=== PATIENT | female | born 1955 | race Caucasian/White ===

== ENCOUNTER 2020-04-02 14:29 | Emergency (ER) | payer OTHER ==
[2020-04-02 14:38] VITALS: BP 150/83; PULSE 93; TEMP 98.4; BMI 34.0
[2020-04-02] MEDS ORDERED: DIPHTH,PERTUSS(ACELL),TET 0.5 ML DISP.SYRIN IM ONE ×2 (14:59→15:04)
--- NOTE | 2020-04-02 15:19 | PDOC ---
History of Present Illness - General Chief Complaint: Injury Stated Complaint: LT LEG LAC Time Seen by Provider: 04/02/20 14:40 History Source: Patient Exam Limitations: No Limitations Past History - Travel History Traveled outside of the country in the last 30 days: No Close contact w/someone who was outside of country & ill: No - Medical History Allergies/Adverse Reactions: Allergies Allergy/AdvReac Type Severity Reaction Status Date / Time No Known Allergies Allergy Verified 04/02/20 14:33 Home Medications: Ambulatory Orders NK [No Known Home Medication] 08/31/15 COPD: No HTN: Yes Hypercholesterolemia: Yes - Surgical History Appendectomy: Yes - Immunization History Immunization Up to Date: Yes - Psycho-Social/Smoking History Smoking History: Never smoked Have you smoked in the past 12 months: No - Substance Abuse Hx (Audit-C & DAST Scrn) How often the patient has a drink containing alcohol: Never Score: In Men: 4 or > Positive; In Women: 3 or > Positive: 0 Screen Result (Pos requires Nsg. Audit-10AR): Negative In the last yr the pt used illegal drug/Rx for NonMed reason: No Score: Yes response is considered Positive: 0 Screen Result (Positive result requires Nsg. DAST-10): Negative Review of Systems - Review of Systems Able to Perform ROS?: Yes Comments:: 04/02/20 15:14 CONSTITUTIONAL: Absent: fever, chills, diaphoresis, generalized weakness, malaise, loss of appetite HEENT: Absent: rhinorrhea, nasal congestion, throat pain, throat swelling, difficulty swallowing, mouth swelling, ear pain, eye pain, visual Changes CARDIOVASCULAR: Absent: chest pain, loss of consciousness, palpitations, irregular heart rate, peripheral edema RESPIRATORY: Absent: cough, shortness of breath, dyspnea with exertion, orthopnea, wheezing, stridor, hemoptysis GASTROINTESTINAL: Absent: abdominal pain, abdominal distension, nausea, vomiting, diarrhea, constipation, melena, hematochezia GENITOURINARY: Absent: dysuria, frequency, urgency, hesitancy, hematuria, flank pain, genital pain MUSCULOSKELETAL: Absent: myalgia, arthralgia, joint swelling SKIN: Present: Laceration Absent: rash, itching, pallor HEMATOLOGIC/IMMUNOLOGIC: Absent: easy bleeding, easy bruising, lymphadenopathy, frequent infections ENDOCRINE: Absent: unexplained weight gain, unexplained weight loss, heat intolerance, cold intolerance NEUROLOGIC: Absent: headache, focal weakness or paresthesias, dizziness, unsteady gait, seizure, mental status changes, bladder or bowel incontinence PSYCHIATRIC: Absent: anxiety, depression, suicidal or homicidal ideation, hallucinations. Is the patient limited Ghanaian proficient: No *Physical Exam - Vital Signs Last Vital Signs Temp Pulse Resp BP Pulse Ox 98.4 F 93 H 16 150/83 98 04/02/20 14:33 04/02/20 14:33 04/02/20 14:33 04/02/20 14:33 04/02/20 14:33 - Physical Exam 04/02/20 15:15 GENERAL: The patient is awake, alert, and fully oriented, in no acute distress. HEAD: Normal with no signs of trauma. EYES: Pupils equal, round and reactive to light, extraocular movements intact, sclera anicteric, conjunctiva clear. EXTREMITIES: 2cm superficial linar laceration to the R lower extremity. Abrasion present to the L lower extremity. Normal range of motion, no edema. NEUROLOGICAL: Normal speech, normal gait. PSYCH: Normal mood, normal affect. SKIN: Warm, Dry, normal turgor, no rashes or lesions noted. ED Treatment Course - Medications Given in the ED: ED Medications Discontinued Medications Generic Name Dose Route Start Last Admin Trade Name Freq PRN Reason Stop Dose Admin Diphtheria/Tetanus/Acell Pertussis 0.5 ml 04/02/20 14:59 04/02/20 15:05 Boostrix - IM 04/02/20 15:00 0.5 ml .ONCE ONE Administration Medical Decision Making - Medical Decision Making 04/02/20 15:16 Patient is a 64-year-old female who presents to the ER for a lower leg laceration sustained just prior to arrival. She states that she dropped a glass table and the glass shattered cutting her leg. She does not remember the date of her last tetanus shot. Denies numbness tingling weakness the affected extremity. A/P: Laceration On exam patient has a 2 cm superficial linear laceration to the right lower extremity no active bleeding. Left lower extremity with a abrasion to the distal knee. We will update patient's tetanus. Laceration repair by Dr. Aguilar; see procedure note Abrasion cleaned by myself, bacitracin applied with a Band-Aid. Wound care instructions given. Instructed to return in 14 days to have the stitches removed. Discharge home I discussed the physical exam findings, ancillary test results and final diagnoses with the patient. I answered all of the patient's questions. The patient was satisfied with the care received and felt comfortable with the discharge plan and treatment plan. The Patient agrees to follow up with the primary care physician/specialist within 24-72 hours. Return precautions were given. Discharge - Discharge Information Problems reviewed: Yes Clinical Impression/Diagnosis: Laceration Condition: Stable Disposition: HOME - Admission No - Follow up/Referral Referrals: [facility] [place] [Provider Group] - Patient Discharge Instructions Patient Printed Discharge Instructions: DI for Laceration Repair Additional Instructions: Discharge Instructions: You were seen in the emergency department for a laceration repair; you have 5 stitches in your R lower leg. Home Care: - You should avoid getting the wound wet for at least 24 hours. After 24hrs, you may wash your arm and shower normally. It is OK to use a plain soap and allow water to run over the wound. Do not scrub at the wound, and pat dry after washing. Do not rub with a towel. - Your tetanus shot was updated today - After 24hrs you may remove the bandage and leave the wound open to air. - Do not apply any lotions, ointments, creams or other topical medications to the wound - Some redness and swelling is expected after an injury. You may see a small amount of bleeding or pinkish drainage on the bandage when you remove it. This is normal. - You may use acetaminophen (Tylenol) or ibuprofen (Advil, Motrin) as needed for pain. Please follow the directions on the bottle for dosing information. Follow Up: - You need to have the stitches removed in 10-14 days - You can return to the emergency room/an urgent care or see your regular doctor. - Seek immediate medical care if your wound becomes significantly more painful, swollen, red, you have a large amount of thick drainage, you have fevers to 101F or higher, or you have red streaking from the wound. es in your symptoms. Instrues de lux: Voc foi visto no departamento de emergncia para um reparo de lacerao; voc tem 5 pontos em sua dong R. Assistncia Domiciliar: - Voc deve evitar molhar a ferida por pelo menos 24 horas. Aps 24 horas, voc pode kiara o brao e nikki banho normalmente. No h problema em usar alex comum e permitir que a gua escorra sobre o ferimento. No esfregue a ferida e seque depois de kiara. No esfregue com david toalha. - Sua vacina antitetnica foi atualizada hoje - Aps 24h voc pode remover o curativo e deixar a ferida aberta ao ar. - No aplique loes, pomadas, cremes ou outros medicamentos tpicos na ferida - esperada alguma vermelhido e inchao aps david leso. Voc pode tonie david pequena quantidade de sangramento ou drenagem rosada no curativo ao remov-lo. Isto normal. - Voc pode usar acetaminofeno (Tylenol) ou ibuprofeno (Advil, Motrin) conforme necessrio para a lalito. Siga as instrues no frasco para obter informaes sobre a dosagem. Acompanhamento: - Voc precisa ter os pontos removidos em 10-14 hickey - Voc pode retornar bon de emergncia / atendimento de urgncia ou consultar o seu mdico regular. - Procure atendimento mdico imediato se a sua ferida ficar significativamente mais dolorida, inchada, vermelha, se tiver david jose francisco quantidade de drenagem espessa, se tiver quang a 101F ou mais ou se tiver estrias vermelhas na ferida. est em seus sintomas. - Post Discharge Activity
--- OUTSIDE RECORDS SUMMARY | 2020-04-02 20:47 | XMS ---
:1955 [facility] Providers Name Role Phone Hardeep Scruggsy Unavailable JUSTO SAHU, MARICEL Unavailable JUSTO SAHU, MARICEL Unavailable JUSTO SAHU, MARICEL Unavailable JUSTO SAHU, MARICEL Unavailable JUSTO ASHU, MARICEL Unavailable JUSTO SAHU, MARICEL Unavailable [employer] M[employer] LO[employer] INTERVIEWER, MOBOLAJI Unavailable [employer]YE[employer] M[employer]GAGE LO[employer] INTERVIEWER, MOBOLAJI Unavailable [employer]YE[place]A MORTGAGE LOAN INTERVIEWER, MOBOLAJI Unavailable OYE[place] M[employer]GAGE LOAN INTERVIEWER, MOBOLAJI Unavailable CATRINA SAHU, LORNA Unavailable + CATRINA SAHU, LORNA Unavailable + CATRINA SAHU, LORNA Unavailable + CATRINA SAHU, LORNA Unavailable + CATRINA SAHU, LORNA Unavailable + AGYEPONG MORTGAGE LOAN INTERVIEWER, MARY Unavailable + AGYEPONG MORTGAGE LOAN INTERVIEWER, MARY Unavailable + JUSTIN CNM, KUSH Unavailable + JUSTIN CNM, KUSH Unavailable + ELIANA AVILA MD Unavailable Unavailable ELIANA AVILA MD Unavailable Unavailable ELIANA AVILA MD Unavailable Unavailable ELIANA AVILA MD Unavailable Unavailable ELIANA AVILA MD Unavailable Unavailable ELIANA AVILA MD Unavailable Unavailable ELIANA AVILA MD Unavailable Unavailable ELIANA AVILA MD Unavailable Unavailable ELIANA AVILA MD Unavailable Unavailable ELIANA AVILA MD Unavailable Unavailable ELIANA AVILA MD Unavailable Unavailable Taher, Perez D Unavailable Unavailable Taher, D Unavailable Unavailable Taher, D Unavailable Unavailable Taher, D Unavailable Unavailable Taher, D Unavailable Unavailable MD GUS Unavailable Unavailable MD GUS Unavailable Unavailable MD GUS Unavailable Unavailable MD GUS Unavailable Unavailable MD GUS Unavailable Unavailable MD GUS Unavailable Unavailable MD GUS Unavailable Unavailable Saira Unavailable [email or web address] Saira Unavailable [email or web address] Saira Unavailable [email or web address] Saira Unavailable [email or web address] BRET SAHU Unavailable + BRET SAHU Unavailable + BRET SAHU Unavailable + ALIDA SAHU Unavailable + ALIDA SAHU Unavailable + GI Unavailable + MD Jay Unavailable Unavailable MD Jay Unavailable Unavailable MD Jay Unavailable Unavailable MD Jay Unavailable Unavailable MD Jay Unavailable Unavailable MD Jay Unavailable Unavailable MD Jay Unavailable Unavailable MD Jay Unavailable Unavailable MD Jay Unavailable Unavailable MD Jay Unavailable Unavailable MD Jay Unavailable Unavailable MD Jay Unavailable Unavailable KIRA SAHU Unavailable KIRA SAHU Unavailable KIRA SAHU Unavailable KIRA SAHU Unavailable LONG CNM Unavailable LONG CNM Unavailable LONG CNM Unavailable LONG CNM Unavailable LOUANN SAHU Unavailable MAYANK SAHU Unavailable MAYANK SAHU Unavailable RANDA MORTGAGE LOAN INTERVIEWER Unavailable RANDA MORTGAGE LOAN INTERVIEWER Unavailable RANDA MORTGAGE LOAN INTERVIEWER Unavailable MD TIFFANY Unavailable Unavailable MD TIFFANY Unavailable Unavailable MD TIFFANY Unavailable Unavailable MD TIFFANY Unavailable Unavailable MD TIFFANY Unavailable Unavailable MD TIFFANY Unavailable Unavailable SRINIVAS Unavailable RENZO DDS Unavailable DRE SAHU Unavailable ZOLTAN ACEVEDO Unavailable Unavailable FABIAN SAHU Unavailable FABIAN SAHU Unavailable FABIAN SAHU Unavailable LONG ISAC M Unavailable Unavailable [place] DPM Unavailable [place] DPM Unavailable DELIA MD Unavailable Malcolm Unavailable YUE CHANEY HY Unavailable Re-disclosure Warning The records that you are about to access may contain information from federally- assisted alcohol or drug abuse programs. If such information is present, then the following federally mandated warning applies: This information has been disclosed to you from records protected by federal confidentiality rules (42 CFR part 2). The federal rules prohibit you from making any further disclosure of this information unless further disclosure is expressly permitted by the written consent of the person to whom it pertains or as otherwise permitted by 42 CFR part 2. A general authorization for the release of medical or other information is NOT sufficient for this purpose. The Federal rules restrict any use of the information to criminally investigate or prosecute any alcohol or drug abuse patient.The records that you are about to access may contain highly sensitive health information, the redisclosure of which is protected by Article 27-F of the [facility] Public Health law. If you continue you may haveaccess to information: Regarding HIV / AIDS; Provided by facilities licensed or operated by the [facility] Office of Mental Health; or Provided by the [facility] Office for People With Developmental Disabilities. If such information is present, then the following [facility] mandated warning applies: This information has been disclosed to you from confidential records which are protected by state law. State law prohibits you from making any further disclosure of this information without the specific written consent of the person to whom it pertains, or as otherwise permitted by law. Any unauthorized further disclosure in violation of state law may result in a fine or detention sentence or both. A general authorization for the release of medical or other information is NOT sufficient authorization for further disclosure. Allergies and Adverse Reactions Type Description Substance Reaction Status Data Source(s ) Allergy to No Known Allergies No known GREENW AY ([facility] substance allergies [facility] [place]note 2] ) Allergy to No Known Allergies No known GREENW AY ([facility] substance allergies [facility] [place][note 2] ) Allergy to No Known Allergies No known GREENW AY ([facility] substance allergies [facility] [place][note 2] ) Allergy to No Known Allergies No known GREENW AY ([facility] substance allergies [facility] [place][note 2] ) Allergy to No Known Allergies No known GREENW AY ([facility] substance allergies [facility] [place][note 2] ) Allergy to No Known Allergies No known GREENW AY ([facility] ) Allergy to No Known Allergies No known GREENW AY ([facility] substance allergies [facility] ([facility] ) Allergy to No Known Allergies No known GREENW AY ([facility] substance allergies [facility] ([facility] ) Allergy to No Known Allergies No known GREENW AY ([facility] substance allergies [facility] ) Allergy to No Known Allergies No known GREENW AY ([facility] substance allergies [facility] ([facility] ) Allergy to No Known Allergies No known GREENW AY ([facility] substance allergies [facility] ([facility] ) Allergy to No Known Allergies No known GREENW AY ([facility] substance allergies [facility] ([facility] ) Allergy to No Known Allergies No known GREENW AY ([facility] substance allergies [facility] ([facility] ) Allergy to No Known Allergies No known GREENW AY ([facility] substance allergies [facility] ([facility] ) Allergy to No Known Allergies No known GREENW AY ([facility] substance allergies [facility] ([facility] ) Allergy to No Known Allergies No known GREENW AY ([facility] substance allergies [facility] ) Allergy to No Known Allergies No known GREENW AY ([facility] substance allergies [facility] ([facility] ) Allergy to No Known Allergies No known GREENW AY ([facility] substance allergies [facility] ([facility] ) Allergy to No Known Allergies No known GREENW AY ([facility] substance allergies [facility] ([facility] ) Allergy to No Known Allergies No known GREENW AY ([facility] substance allergies [facility] ([facility] ) Allergy to No Known Allergies No known GREENW AY ([facility] substance allergies [facility] ) Allergy to No Known Allergies No known GREENW AY ([facility] substance allergies [facility] ([facility] ) Allergy to No Known Allergies No known GREENW AY ([facility] substance allergies [facility] ) Encounters Encounter Providers Location Date Indications Data Source(s ) Outpatient [address] 10:18:0 0 AM EDT Outpatient [address] 12:00:0 0 AM EDT Outpatient<td Attender: Cate OverweightHypertension CLEMENTINE ID="encounterTy [facility] 020 (systemic)Hyperlipid emia (Nimisha Mazariegos peDescriptionID [facility] 11:30:0 Neighbor henson 0">[place]</td> Center 0 AM Health Ce nter) <td>SYEDAELY EDT - OYEKOHEBERT MORTGAGE LOAN INTERVIEWER</td><td>Yo [facility] 12:06:4 Health 6 PM Center</td><td> EDT 10/31/2019</td> <td><content ID="encounterDi agnosisID0-0">O verweight</cont ent>, <content ID="encounterDi agnosisID0-1">H ypertension (systemic)</con tent>, <content ID="encounterDi agnosisID0-2">H yperlipidemia</ content></td> Overweight Hypertension (systemic) Hyperlipidemia Outpatient<td Attender: Cate 09/03/2019 CLEMENTINE ID="encounterTypeDescriptionID1">*Chart [facility] 05:30:0 0 PM ([place] Update*</td><td>[facility] EST - Neighborhood MD</td><td>[facility] 09/03/2019 Health Center</td><td>09/03/2019</td><td></td> 11:59:0 0 PM Center) EST Outpatient<td Attender: Cate 08/21/2019 CLEMENTINE ID="encounterTypeDescriptionID2">*[facility] 03:30:0 0 PM ([place] Update*</td><td>[facility] EST - Neighborhood MD</td><td>[facility] 08/21/2019 Health Center</td><td>08/21/2019</td><td></td> 11:59:0 0 PM Center) EST 08/13/2019 [facility] 02:03:00 PM Medical EST Center Outpatient Attender: 08/13/2019 [facility] 01:27:00 PM Medical [facility] EST Center RODGERAlexandro ACEVEDOAdmit ter: IGOR VILLELABALJEETAlexandro KRISTINARefer rer: IGOR ACEVEDO Outpatient<td Attender: [facility] 07/17/2019 [place] ID="encounterTypeDescriptionID3">*No EUGENE Mazariegos 04:33:00 P M ([place] Show*</td><td>EUGENE QUEEN (ENDO) BRET SAHU [facility] EST - Neighborhood MD</td><td>[facility] Health 07/17/2019 Health Health Center 11:59:00 PM Center) Center</td><td>07/17/2019</td><td></td> EST Outpatient<td Attender: 07/17/2019 [place] ID="encounterTypeDescriptionID4">*SYD HERNANDEZ 01:12: 00 PM ([facility]*</td><td>[facility]</td><td> [facility] EST - Neighborhood [facility] 07/17/2019 Health </td><td>07/17/2019</td><td></td> 11:59:00 PM Center) EST Outpatient<td Attender: Cate 07/11/2019 [facility] ID="encounterTypeDescriptionID5">OFFICE [facility] 10:00:0 0 AM v ([place] VISIT</td><td>MARY [facility] EST - e Neighborhood MORTGAGE LOAN INTERVIEWER</td><td>[facility] 07/[facility]/2019 Health Center</td><td>07/11/2019</td><td><maninder 11:01: 34 AM w Center) nt ID="encounterDiagnosisID5-0">Breast EST e Disorders</content>, <content i ID="encounterDiagnosisID5-1">Overweight< g /content></td> h t O v e r w e i g h t O v e r w e i g h t O v e r w e i g h t B r e a s t D i s o r d e r s B r e a s t D i s o r d e r s B r e a s t D i s o r d e r s B r e a s t D i s o r d e r s Overweight Overweight Overweight Overweight Breast Disorders Breast Disorders Breast Disorders Breast Disorders Outpatient<td Attender: Cate 07/02/2019 CLE[place] ID="encounterTypeDescriptionID6">Regular EVERARDO [facility] 02:30: 00 PM (Nimisha Mazariegos Sonogram</td><td>EVERARDO LIN MD Health EST - Neighborhood MD</td><td>[facility] Center 07/02/2019 Health Center</td><td>07/02/2019</td><td></td> 03:34:5 7 PM Center) EST Outpatient<td Attender: Cate 06/28/2019 CLE[place] ID="encounterTypeDescriptionID7">[facility] (Nimisha Mazariegos /td><td>[facility] </td><td>[facility] Center 06/28/2019 Health Center</td><td>06/28/2019</td><td></td> 10:52:1 2 AM Center) EST Outpatient<td Attender: Cate 06/13/2019 CLEMENTINE ID="encounterTypeDescriptionID8">OFFICE [facility] 10:00:0 0 AM (Nimisha Mazariegos VISIT</td><td>[facility] DPM Health EST - Neighborhood DPM</td><td>[facility] Center 06/13/2019 Health Center</td><td>06/13/2019</td><td></td> 09:52:0 3 AM Center) EST Outpatient<td Attender: Cate 06/12/2019 CLEMENT[place] ID="encounterTypeDescriptionID9">*[facility] 04:34 :00 PM (Nimisha Mazariegos *</td><td>ISAC CHAVEZ CN Health EST - Neighborhood CNM</td><td>[facility] 06/12/2019 Health Center</td><td>06/12/2019</td><td></td> 11:59:0 0 PM Center) EST Outpatient Attender: 06/07/2019 [facility] MONREALRIELLE 08:53:00 AM [facility] ISAC Floresmitter: ISAC CHAU MReferrer: ISAC [place] Outpatient<td Attender: Cate 06/05/2019 Alexandro [place] ID="[id number]">OFFICE [facility] 03:30: 00 PM s ([place] VISIT</td><td>ISAC [facility] EST - s [facility]</td><td>[facility] 06/05/2019 e Health Center</td><td>06/05/2019</td><td><conten 04:14 :02 PM s Center) t EST s ID="[id number]">Assessment m [use For S.o.a.p. Note Free e Text]</content></td> n t [ u s e F o r S . o . a . p . N o t e F r e e T e x t ] A s s e s s m e n t [ u s e F o r S . o . a . p . N o t e F r e e T e x t ] A s s e s s m e n t [ u s e F o r S . o . a . p . N o t e F r e e T e x t ] A s s e s s m e n t [ u s e F o r S . o . a . p . N o t e F r e e T e x t ] A s s e s s m e n t [ u s e F o r S . o . a . p . N o t e F r e e T e x t ] A s s e s s m e n t [ u s e F o r S . o . a . p . N o t e F r e e T e x t ] A s s e s s m e n t [ u s e F o r S . o . a . p . N o t e F r e e T e x t ] A s s e s s m e n t [ u s e F o r S . o . a . p . N o t e F r e e T e x t ] Assessment [use For S.o.a.p. Note Free T ext] Assessment [use For S.o.a.p. Note Free T ext] Assessment [use For S.o.a.p. Note Free T ext] Assessment [use For S.o.a.p. Note Free T ext] Assessment [use For S.o.a.p. Note Free T ext] Assessment [use For S.o.a.p. Note Free T ext] Assessment [use For S.o.a.p. Note Free T ext] Assessment [use For S.o.a.p. Note Free T ext] Outpatient<td Attender: [place] 05/16/2019 CLEMENTINE ID="[id number]">OFFICE [facility] 09:30: 00 AM (Nimisha Mazariegos VISIT</td><td>[facility] [place] D[place] Health EST - Neighborhood DPM</td><td>[facility] 05/16/2019 Health Center</td><td>05/16/2019</td><td></td> 11:59:0 0 PM Center) EST Outpatient<td Attender: Cate 05/16/2019 CLEMENTINE ID="encounterTypeDescriptionID0">OFFICE [facility] 09:30:0 0 AM (Nimisha Mazariegos VISIT</td><td>[facility] Health EST - Neighborhood CN</td><td>[facility] 05/16/2019 Health Center</td><td>05/16/2019</td><td></td> 11:59:0 0 PM Center) EST Outpatient<td Attender: [place] 05/16/2019 [place] ID="[id number]">OFFICE [facility] 09:00: 00 AM v (Nimisha Mazariegos VISIT</td><td>[facility] MORTGAGE LOAN INTERVIEWER</td><td>[facility] Center 05/16/2019 Health Center</td><td>05/16/2019</td><td><conten 09:51 :12 AM w Center) t ID="[id number]">Limb Pain EST e Right Foot</content>, <content i ID="[id number]">Overweight< g /content></td> h t L i m b P a i n R i g h t F o o t O v e r w e i g h t L i m b P a i n R i g h t F o o t O v e r w e i g h t L i m b P a i n R i g h t F o o t O v e r w e i g h t L i m b P a i n R i g h t F o o t O v e r w e i g h t L i m b P a i n R i g h t F o o t O v e r w e i g h t L i m b P a i n R i g h t F o o t O v e r w e i g h t L i m b P a i n R i g h t F o o t O v e r w e i g h t L i m b P a i n R i g h t F o o t O v e r w e i g h t L i m b P a i n R i g h t F o o t O v e r w e i g h t L i m b P a i n R i g h t F o o t Overweight Limb Pain Right Foot Overweight Limb Pain Right Foot Overweight Limb Pain Right Foot Overweight Limb Pain Right Foot Overweight Limb Pain Right Foot Overweight Limb Pain Right Foot Overweight Limb Pain Right Foot Overweight Limb Pain Right Foot Overweight Limb Pain Right Foot Overweight Limb Pain Right Foot Outpatient<td Attender: Nimisha Mazariegos 05/14/2019 [place] ID="[id number]">PATIENT [facility]ADY [place] 05: 16:00 PM (Nimisha Mazariegos ADVOCACY</td><td>LADY ANGELO</td><td>[facility] 05/14/2019 Health Center</td><td>05/14/2019</td><td></td> 11:59:0 0 PM Center) EST Outpatient<td Attender: Nimisha Mazariegos 05/14/2019 [place] ID="[id number]">OFFICE [facility] 02:4 5:00 PM e ([place] VISIT</td><td>CORY TALLEY MD Health Center EST - r [facility] </td><td>[facility] 05/14/2019 [facility] 02:48:41 PM a Center) Center</td><td>05/14/2019</td><td><content EST t ID="[id number]">Dermatitis</ i content></td> t i s D e r m a t i t i s D e r m a t i t i s D e r m a t i t i s D e r m a t i t i s D e r m a t i t i s D e r m a t i t i s D e r m a t i t i s D e r m a t i t i s D e r m a t i t i s D e r m a t i t i s D e r m a t i t i s Dermatitis Dermatitis Dermatitis Dermatitis Dermatitis Dermatitis Dermatitis Dermatitis Dermatitis Dermatitis Dermatitis Dermatitis Outpatient<td Attender: Cate 05/09/2019 [place] ID="[id number]">PATIENT [facility] 12:29 :00 PM (Nimisha Mazariegos ADVOCACY</td><td>[facility] EST - Ne [facility]</td><td>[facility] 2018 Health Center</td><td>05/09/2019</td><td></td> 11:59:0 0 PM Center) EST Outpatient<td Attender: Cate 04/05/2019 O CLEMENTINE ID="[id number]">COMPLETE [facility] 10:0 0:00 AM v ([place] PHYSICAL EXAM</td><td>[facility] EDT - e Neighborhood MORTGAGE LOAN INTERVIEWER</td><td>[facility] MORTGAGE LOAN INTERVIEWER Center 04/05/2019 [facility]</td><td>04/05/2019</td><td><content 11:1 6:31 AM w Center) ID="[id number]">Dermatitis</ EDT e content>, <content i ID="ondgzmlelYlwhsccteEM76-3">Routine g History and Physical Adult (18 - 64 h Yrs)</content>, <content t ID="zgsushiziBhvopmiaeOH90-9">Overweight</ R content></td> o u t i n e H i s t o r y a n d P h y s i c a l A d u l t ( 4 Y r s ) D e r m a t i t i s O v e r w e i g h t R o u t i n e H i s t o r y a n d P h y s i c a l A d u l t ( 4 Y r s ) D e r m a t i t i s O v e r w e i g h t R o u t i n e H i s t o r y a n d P h y s i c a l A d u l t ( 4 Y r s ) D e r m a t i t i s O v e r w e i g h t R o u t i n e H i s t o r y a n d P h y s i c a l A d u l t ( 4 Y r s ) D e r m a t i t i s O v e r w e i g h t R o u t i n e H i s t o r y a n d P h y s i c a l A d u l t ( 4 Y r s ) D e r m a t i t i s O v e r w e i g h t R o u t i n e H i s t o r y a n d P h y s i c a l A d u l t ( 8 4 Y r s ) D e r m a t i t i s O v e r w e i g h t R o u t i n e H i s t o r y a n d P h y s i c a l A d u l t ( 1 8 - 6 4 Y r s ) D e r m a t i t i s O v e r w e i g h t R o u t i n e H i s t o r y a n d P h y s i c a l A d u l t ( 1 8 - 6 4 Y r s ) D e r m a t i t i s O v e r w e i g h t R o u t i n e H i s t o r y a n d P h y s i c a l A d u l t ( 1 8 - 6 4 Y r s ) D e r m a t i t i s O v e r w e i g h t R o u t i n e H i s t o r y a n d P h y s i c a l A d u l t ( 1 8 - 6 4 Y r s ) D e r m a t i t i s O v e r w e i g h t R o u t i n e H i s t o r y a n d P h y s i c a l A d u l t ( 1 8 - 6 4 Y r s ) D e r m a t i t i s O v e r w e i g h t R o u t i n e H i s t o r y a n d P h y s i c a l A d u l t ( 1 8 - 6 4 Y r s ) D e r m a t i t i s O v e r w e i g h t R o u t i n e H i s t o r y a n d P h y s i c a l A d u l t ( 1 8 - 6 4 Y r s ) D e r m a t i t i s Overweight Routine History and Physical Adult (18 - 64 Yrs) Dermatitis Overweight Routine History and Physical Adult (18 - 64 Yrs) Dermatitis Overweight Routine History and Physical Adult (18 - 64 Yrs) Dermatitis Overweight Routine History and Physical Adult (18 - 64 Yrs) Dermatitis Overweight Routine History and Physical Adult (18 - 64 Yrs) Dermatitis Overweight Routine History and Physical Adult (18 - 64 Yrs) Dermatitis Overweight Routine History and Physical Adult (18 - 64 Yrs) Dermatitis Overweight Routine History and Physical Adult (18 - 64 Yrs) Dermatitis Overweight Routine History and Physical Adult (18 - 64 Yrs) Dermatitis Overweight Routine History and Physical Adult (18 - 64 Yrs) Dermatitis Overweight Routine History and Physical Adult (18 - 64 Yrs) Dermatitis Overweight Routine History and Physical Adult (18 - 64 Yrs) Dermatitis Overweight Routine History and Physical Adult (18 - 64 Yrs) Dermatitis Outpatient<td Attender: Cate 11/29/2018 OverweightOverweightOverweightOverweightOverweightOverweightOverweightOverweight OverweightOverweightOverweightOverweightOverweight CLEMENTINE ID="[id number]">WALKINS</td><td>[facility] 09:30:00 AM ([facility]</td><td>[facility] E DT - Neighborhood Center</td><td>11/29/2018</td><td><content MORTGAGE LOAN INTERVIEWER Center 11/02 Health ID="[id number]">Overweight</content></td> 09:56:36 AM Center) EDT Overweight Overweight Overweight Overweight Overweight Overweight Overweight Overweight Overweight Overweight Overweight Overweight Overweight Outpatient<td Attender: Cate 10/12/2018 Otitis Externa - Right CLEMENTINE ID="[id number]">[place]</td><td>[facility] 01:30:00 PM EarOverweightOtitis ([facility]</td><td>[facility] EDT - Externa - Right [facility] Center</td><td>10/12/2018</td><td><content MORTGAGE LOAN INTERVIEWER Center 10/12/2018 EarOverweightOtitis Health ID="[id number]">Overweight</content>, 03:00:06 PM Externa - Right Center) <content ID="[id number]">Otitis Externa - EDT EarOverweightOtitis Right Ear</content>, <content Jet Mechanic a - Right ID="[id number]">Hypertension EarOverweightOtitis (systemic)</content></td> Externa - Right EarOverweightOtitis Externa - Right EarOverweightOtitis Externa - Right EarOverweightOtitis Externa - Right EarOverweightOtitis Externa - Right EarOverweightOtitis Externa - Right EarOverweightOtitis Externa - Right EarOverweightOtitis Externa - Right EarOverweightOtitis Externa - Right EarOverweightOtitis Externa - Right EarOverweightHypertension (systemic)Hypertension (systemic)Hypertension (systemic)Hypertension (systemic)Hypertension (systemic)Hypertension (systemic)Hypertension (systemic)Hypertension (systemic)Hypertension (systemic)Hypertension (systemic)Hypertension (systemic)Hypertension (systemic)Hypertension (systemic)Hypertension (systemic) Otitis Externa - Right Ear Overweight Otitis Externa - Right Ear Overweight Otitis Externa - Right Ear Overweight Otitis Externa - Right Ear Overweight Otitis Externa - Right Ear Overweight Otitis Externa - Right Ear Overweight Otitis Externa - Right Ear Overweight Otitis Externa - Right Ear Overweight Otitis Externa - Right Ear Overweight Otitis Externa - Right Ear Overweight Otitis Externa - Right Ear Overweight Otitis Externa - Right Ear Overweight Otitis Externa - Right Ear Overweight Otitis Externa - Right Ear Overweight Hypertension (systemic) Hypertension (systemic) Hypertension (systemic) Hypertension (systemic) Hypertension (systemic) Hypertension (systemic) Hypertension (systemic) Hypertension (systemic) Hypertension (systemic) Hypertension (systemic) Hypertension (systemic) Hypertension (systemic) Hypertension (systemic) Hypertension (systemic) Outpatient<td Attender: [place] 09/26/2018 Nontoxic Solit gerson Thyroid NoduleNontoxic Solitary Thyroid NoduleNontoxic Solitary Thyroid NoduleNontoxic Solitary Thyroid NoduleNontoxic Solitary Thyroid NoduleNontoxic Solitary Thyroid NoduleNontoxic Solitary Thyroid [place] ID="[id number]">ENDOCRINOLOGY OFFICE [facility] 03:30:00 PM NoduleNontoxic Solitary Thyroid NoduleNo ntoxic Solitary Thyroid NoduleNontoxic Solitary Thyroid NoduleNontoxic Solitary Thyroid NoduleNontoxic Solitary Thyroid NoduleNontoxic Solitary Thyroid NoduleNontoxic Solitary Thyroid ([place] VISIT</td><td>EUGENE QUEEN (ENDO) </td><td>[facility] EDT - NoduleHyperlipidemiaNontoxic Solitary Thyroid Neighbor [facility] 09/26/2018 NoduleHyperlipidemiaObesityObesityObesityObesityObesityObesityObesityObesityObes ityObesityObesityObesityObesityObesityObesityHyperlipidemiaHyperlipidemiaHyperli pidemiaHyperlipidemiaHyperlipidemiaHyperlipidemiaHyperlipidemiaH Health Center</td><td>09/26/2018</td><td><content 04:56:35 PM yperlipidemiaHyperlipidemiaHyperlipidemiaHyperlipidemiaHyperlipidemiaHyperlipide Center) ID="[id number]">Hyperlipidemia</content>, EDT <content ID="[id number]">Nontoxic Solitary Thyroid Nodule</content>, <content ID="[id number]">Obesity</content></td> 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 Hyperlipidemia Nontoxic Solitary Thyroid Nodule Hyperlipidemia Obesity Obesity Obesity Obesity Obesity Obesity Obesity Obesity Obesity Obesity Obesity Obesity Obesity Obesity Obesity Hyperlipidemia Hyperlipidemia Hyperlipidemia Hyperlipidemia Hyperlipidemia Hyperlipidemia Hyperlipidemia Hyperlipidemia Hyperlipidemia Hyperlipidemia Hyperlipidemia Hyperlipidemia Hyperlipidemia Outpatient<td Attender: Cate 09/18/2018 [place] ID="[id number]">[facility] (Nimisha Mazariegos Sonogram</td><td>EVERARDO LIN MD [facility] EDT - [facility] </td><td>[facility] 09/18/2018 Health Center</td><td>09/18/2018</td><td></td> 04:23:0 8 PM Center) EDT Outpatient<td Attender: 09/10/2018 [place] ID="[id number]">*NICKOLAS HERNANDEZ 09:2 3:00 AM (Nimisha Cardoso*</td><td>MARY HEIN MORTGAGE LOAN INTERVIEWER</td><td> AGYEPONG EDT - [facility] MORTGAGE LOAN INTERVIEWER 09/10/2018 Health </td><td>09/10/2018</td><td></td> 11:59:00 PM Center) EDT Outpatient<td Attender: Cate 09/03/2018 [place] ID="[id number]">CARE [facility] 03:30:00 PM (Nimisha Mazariegos MANAGEMENT PLAN</td><td>[facility] EST - [facility]</td><td>[facility] 019 Health Center</td><td>09/03/2018</td><td></td> 11:59:0 0 PM Center) EST Outpatient<td Attender: Cate 09/03/2018 O [place] ID="[id number]">OFFICE [facility] 03:00: 00 PM b (Nimisha Mazariegos VISIT</td><td>[facility] EST - e [facility] MORTGAGE LOAN INTERVIEWER</td><td>[facility] MORTGAGE LOAN INTERVIEWER Center 09/03/2018 Health Center</td><td>09/03/2018</td><td><content 03:3 3:46 PM i Center) ID="[id number]">Obesity</con EST t tent></td> y O b e s i t y O b e s i t y O b e s i t y O b e s i t y O b e s i t y O b e s i t y O b e s i t y O b e s i t y O b e s i t y O b e s i t y O b e s i t y O b e s i t y O b e s i t y O b e s i t y O b e s i t y O b e s i t y O b e s i t y O b e s i t y Obesity Obesity Obesity Obesity Obesity Obesity Obesity Obesity Obesity Obesity Obesity Obesity Obesity Obesity Obesity Obesity Obesity Obesity Obesity Outpatient<td Attender: Cate 07/09/2018 [place] ID="[id number]">PATIENT [facility] 02:16 :00 PM (Nimisha Mazariegos ADVOCACY</td><td>[facility] EST - [facility]</td><td>[facility] 2018 Health Center</td><td>07/09/2018</td><td></td> 11:59:0 0 PM Center) EST Outpatient<td Attender: Cate 07/07/2018 H [place] ID="[id number]">[facility] 09:[facility] 0:00 AM y ([place] /td><td>MARICEL KEMP MD</td><td>Cate [facility] EST - p [facility] 07/07/2018 e Health Center</td><td>07/07/2018</td><td><content 10:0 1:49 AM r Center) ID="[id number]">Obesity</con EST t tent>, <content h ID="[id number]">Hypertension y (systemic)</content>, <content r ID="[id number]">Hyperthyroid o ism Subclinical</content></td> i d i s m S u b c l i n i c a l O b e s i t y H y p e r t h y r o i d i s m S u b c l i n i c a l O b e s i t y H y p e r t h y r o i d i s m S u b c l i n i c a l O b e s i t y H y p e r t h y r o i d i s m S u b c l i n i c a l O b e s i t y H y p e r t h y r o i d i s m S u b c l i n i c a l O b e s i t y H y p e r t h y r o i d i s m S u b c l i n i c a l O b e s i t y H y p e r t h y r o i d i s m S u b c l i n i c a l O b e s i t y H y p e r t h y r o i d i s m S u b c l i n i c a l O b e s i t y H y p e r t h y r o i d i s m S u b c l i n i c a l O b e s i t y H y p e r t h y r o i d i s m S u b c l i n i c a l O b e s i t y H y p e r t h y r o i d i s m S u b c l i n i c a l O b e s i t y H y p e r t h y r o i d i s m S u b c l i n i c a l O b e s i t y H y p e r t h y r o i d i s m S u b c l i n i c a l O b e s i t y H y p e r t h y r o i d i s m S u b c l i n i c a l O b e s i t y H y p e r t h y r o i d i s m S u b c l i n i c a l O b e s i t y H y p e r t h y r o i d i s m S u b c l i n i c a l O b e s i t y H y p e r t h y r o i d i s m S u b c l i n i c a l O b e s i t y H y p e r t h y r o i d i s m S u b c l i n i c a l O b e s i t y H y p e r t h y r o i d i s m S u b c l i n i c a l O b e s i t y H y p e r t h y r o i d i s m S u b c l i n i c a l O b e s i t y H y p e r t h y r o i d i s m S u b c l i n i c a l O b e s i t y H y p e r t e n s i o n ( s y s t e m i c ) H y p e r t e n s i o n ( s y s t e m i c ) H y p e r t e n s i o n ( s y s t e m i c ) H y p e r t e n s i o n ( s y s t e m i c ) H y p e r t e n s i o n ( s y s t e m i c ) H y p e r t e n s i o n ( s y s t e m i c ) H y p e r t e n s i o n ( s y s t e m i c ) H y p e r t e n s i o n ( s y s t e m i c ) H y p e r t e n s i o n ( s y s t e m i c ) H y p e r t e n s i o n ( s y s t e m i c ) H y p e r t e n s i o n ( s y s t e m i c ) H y p e r t e n s i o n ( s y s t e m i c ) H y p e r t e n s i o n ( s y s t e m i c ) H y p e r t e n s i o n ( s y s t e m i c ) H y p e r t e n s i o n ( s y s t e m i c ) H y p e r t e n s i o n ( s y s t e m i c ) H y p e r t e n s i o n ( s y s t e m i c ) H y p e r t e n s i o n ( s y s t e m i c ) H y p e r t e n s i o n ( s y s t e m i c ) H y p e r t e n s i o n ( s y s t e m i c ) H y p e r t e n s i o n ( s y s t e m i c ) Hyperthyroidism Subclinical Obesity Hyperthyroidism Subclinical Obesity Hyperthyroidism Subclinical Obesity Hyperthyroidism Subclinical Obesity Hyperthyroidism Subclinical Obesity Hyperthyroidism Subclinical Obesity Hyperthyroidism Subclinical Obesity Hyperthyroidism Subclinical Obesity Hyperthyroidism Subclinical Obesity Hyperthyroidism Subclinical Obesity Hyperthyroidism Subclinical Obesity Hyperthyroidism Subclinical Obesity Hyperthyroidism Subclinical Obesity Hyperthyroidism Subclinical Obesity Hyperthyroidism Subclinical Obesity Hyperthyroidism Subclinical Obesity Hyperthyroidism Subclinical Obesity Hyperthyroidism Subclinical Obesity Hyperthyroidism Subclinical Obesity Hyperthyroidism Subclinical Obesity Hyperthyroidism Subclinical Obesity Hypertension (systemic) Hypertension (systemic) Hypertension (systemic) Hypertension (systemic) Hypertension (systemic) Hypertension (systemic) Hypertension (systemic) Hypertension (systemic) Hypertension (systemic) Hypertension (systemic) Hypertension (systemic) Hypertension (systemic) Hypertension (systemic) Hypertension (systemic) Hypertension (systemic) Hypertension (systemic) Hypertension (systemic) Hypertension (systemic) Hypertension (systemic) Hypertension (systemic) Hypertension (systemic) Outpatient<td Attender: Cate 07/04/2018 [place] ID="[id number]">PATIENT [facility] 04:18 :00 PM ([place] ADVOCACY</td><td>[facility] - [facility]</td><td>[facility] 2018 Health Center</td><td>07/04/2018</td><td></td> 11:59:0 0 PM Center) EST Outpatient<td Attender: [facility] 06/27/2018 H [place] ID="[id number]">ENDOCRIN EUGENE Mazariegos 09:0 0:00 AM y ([place] OLOGY OFFICE VISIT</td><td>EUGENE QUEEN MD [facility] EST - p Neighborhood (ENDO) </td><td>[facility] 06/27/2018 [facility] 10:08:02 AM r Cent er) Center</td><td>06/27/2018</td><td><content EST t ID="[id number]">Hyperthyroid h ism Subclinical</content>, <content y ID="[id number]">Toxic r Multinodular Goiter</content></td> o i d i s m S u b c l i n i c a l H y p e r t h y r o i d i s m S u b c l i n i c a l H y p e r t h y r o i d i s m S u b c l i n i c a l H y p e r t h y r o i d i s m S u b c l i n i c a l H y p e r t h y r o i d i s m S u b c l i n i c a l H y p e r t h y r o i d i s m S u b c l i n i c a l H y p e r t h y r o i d i s m S u b c l i n i c a l H y p e r t h y r o i d i s m S u b c l i n i c a l H y p e r t h y r o i d i s m S u b c l i n i c a l H y p e r t h y r o i d i s m S u b c l i n i c a l H y p e r t h y r o i d i s m S u b c l i n i c a l H y p e r t h y r o i d i s m S u b c l i n i c a l H y p e r t h y r o i d i s m S u b c l i n i c a l H y p e r t h y r o i d i s m S u b c l i n i c a l H y p e r t h y r o i d i s m S u b c l i n i c a l H y p e r t h y r o i d i s m S u b c l i n i c a l H y p e r t h y r o i d i s m S u b c l i n i c a l H y p e r t h y r o i d i s m S u b c l i n i c a l H y p e r t h y r o i d i s m S u b c l i n i c a l H y p e r t h y r o i d i s m S u b c l i n i c a l H y p e r t h y r o i d i s m S u b c l i n i c a l T o x i c M u l t i n o d u l a r G o i t e r T o x i c M u l t i n o d u l a r G o i t e r T o x i c M u l t i n o d u l a r G o i t e r T o x i c M u l t i n o d u l a r G o i t e r T o x i c M u l t i n o d u l a r G o i t e r T o x i c M u l t i n o d u l a r G o i t e r T o x i c M u l t i n o d u l a r G o i t e r T o x i c M u l t i n o d u l a r G o i t e r T o x i c M u l t i n o d u l a r G o i t e r T o x i c M u l t i n o d u l a r G o i t e r T o x i c M u l t i n o d u l a r G o i t e r T o x i c M u l t i n o d u l a r G o i t e r T o x i c M u l t i n o d u l a r G o i t e r T o x i c M u l t i n o d u l a r G o i t e r T o x i c M u l t i n o d u l a r G o i t e r T o x i c M u l t i n o d u l a r G o i t e r T o x i c M u l t i n o d u l a r G o i t e r T o x i c M u l t i n o d u l a r G o i t e r T o x i c M u l t i n o d u l a r G o i t e r T o x i c M u l t i n o d u l a r G o i t e r T o x i c M u l t i n o d u l a r G o i t e r H y p e r t h y r o i d i s m S u b c l i n i c a l T o x i c M u l t i n o d u l a r G o i t e r H y p e r t h y r o i d i s m S u b c l i n i c a l T o x i c M u l t i n o d u l a r G o i t e r Hyperthyroidism Subclinical Hyperthyroidism Subclinical Hyperthyroidism Subclinical Hyperthyroidism Subclinical Hyperthyroidism Subclinical Hyperthyroidism Subclinical Hyperthyroidism Subclinical Hyperthyroidism Subclinical Hyperthyroidism Subclinical Hyperthyroidism Subclinical Hyperthyroidism Subclinical Hyperthyroidism Subclinical Hyperthyroidism Subclinical Hyperthyroidism Subclinical Hyperthyroidism Subclinical Hyperthyroidism Subclinical Hyperthyroidism Subclinical Hyperthyroidism Subclinical Hyperthyroidism Subclinical Hyperthyroidism Subclinical Hyperthyroidism Subclinical 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 Goiter Hyperthyroidism Subclinical Toxic Multinodular Goiter Hyperthyroidism Subclinical Toxic Multinodular Goiter Outpatient<td Attender: Cate 05/29/2018 [place] ID="[id number]">Regular [facility] 05:00 :00 PM (Nimisha Mazariegos Sonogram</td><td>EVERARDO LIN MD Health EST - [facility] </td><td>[facility] 05/29/2018 Health Center</td><td>05/29/2018</td><td></td> 05:25:5 7 PM Center) EST Outpatient<td Attender: Cate 03/26/2018 [place] ID="[id number]">OFFICE [facility] 03:30: 00 PM h (Nimisha Mazariegos VISIT</td><td>REBA MALONE MD Health EDT - y [facility] </td><td>[facility] 03/26/2018 Health Center</td><td>03/26/2018</td><td><content 03:4 4:57 PM o Center) ID="[id number]">Thyroid EDT i Disorders</content></td> d D i s o r d e r s T h y r o i d D i s o r d e r s T h y r o i d D i s o r d e r s T h y r o i d D i s o r d e r s T h y r o i d D i s o r d e r s T h y r o i d D i s o r d e r s T h y r o i d D i s o r d e r s T h y r o i d D i s o r d e r s T h y r o i d D i s o r d e r s T h y r o i d D i s o r d e r s T h y r o i d D i s o r d e r s T h y r o i d D i s o r d e r s T h y r o i d D i s o r d e r s T h y r o i d D i s o r d e r s T h y r o i d D i s o r d e r s T h y r o i d D i s o r d e r s T h y r o i d D i s o r d e r s T h y r o i d D i s o r d e r s T h y r o i d D i s o r d e r s T h y r o i d D i s o r d e r s T h y r o i d D i s o r d e r s T h y r o i d D i s o r d e r s T h y r o i d D i s o r d e r s Thyroid Disorders Thyroid Disorders Thyroid Disorders Thyroid Disorders Thyroid Disorders Thyroid Disorders Thyroid Disorders Thyroid Disorders Thyroid Disorders Thyroid Disorders Thyroid Disorders Thyroid Disorders Thyroid Disorders Thyroid Disorders Thyroid Disorders Thyroid Disorders Thyroid Disorders Thyroid Disorders Thyroid Disorders Thyroid Disorders Thyroid Disorders Thyroid Disorders Thyroid Disorders Outpatient<td Attender: [place] 03/26/2018 [place] ID="[id number]">PATIENT [facility] 09:02 :00 AM (Nimisha Mazariegos ADVOCACY</td><td>[facility] EDT - [facility]</td><td>[facility] 2017 Health Center</td><td>03/26/2018</td><td></td> 11:59:0 0 PM Center) EDT Outpatient<td Attender: 02/27/2018 [place] ID="[id number]">[Patient REBA 08:5 3:00 AM (Nimisha Mazariegos Encounter]</td><td>REBA MALONE MD</td><td> KIRA SAHU EDT [facility] 02/27/2018 Health </td><td>02/27/2018</td><td></td> 11:59:00 PM Center) EDT Outpatient<td Attender: Cate 02/24/2018 [place] ID="[id number]">[Patient [facility] 10:3 7:00 AM (Nimisha Mazariegos Encounter]</td><td>REBA MALONE MD [facility] EDT [facility] </td><td>[facility] 02/24/2018 Health Center</td><td>02/24/2018</td><td></td> 11:59:0 0 PM Center) EDT Outpatient<td Attender: Cate 02/12/2018 [place] ID="[id number]">EKG</td> [facility] 04:3 0:00 PM ([place] <td>CHANA IRWIN MD</td><td>Cate IRWIN MD [facility] EDT [facility] 02/12/2018 Health Center</td><td>02/12/2018</td><td></td> 11:59:0 0 PM Center) EDT Outpatient<td Attender: Cate 02/12/2018 [facility] ID="[id number]">OFFICE [facility] 03:30: 00 PM y ([place] VISIT</td><td>REBA MALONE MD [facility] EDT [facility] </td><td>[facility] 02/12/2018 e Health Center</td><td>02/12/2018</td><td><content 04:5 3:46 PM r Center) ID="[id number]">Hypertension EDT t (systemic)</content></td> e n s i o n ( s y s t e m i c ) H y p e r t e n s i o n ( s y s t e m i c ) H y p e r t e n s i o n ( s y s t e m i c ) H y p e r t e n s i o n ( s y s t e m i c ) H y p e r t e n s i o n ( s y s t e m i c ) H y p e r t e n s i o n ( s y s t e m i c ) H y p e r t e n s i o n ( s y s t e m i c ) H y p e r t e n s i o n ( s y s t e m i c ) H y p e r t e n s i o n ( s y s t e m i c ) H y p e r t e n s i o n ( s y s t e m i c ) H y p e r t e n s i o n ( s y s t e m i c ) H y p e r t e n s i o n ( s y s t e m i c ) H y p e r t e n s i o n ( s y s t e m i c ) H y p e r t e n s i o n ( s y s t e m i c ) H y p e r t e n s i o n ( s y s t e m i c ) H y p e r t e n s i o n ( s y s t e m i c ) H y p e r t e n s i o n ( s y s t e m i c ) H y p e r t e n s i o n ( s y s t e m i c ) H y p e r t e n s i o n ( s y s t e m i c ) H y p e r t e n s i o n ( s y s t e m i c ) H y p e r t e n s i o n ( s y s t e m i c ) H y p e r t e n s i o n ( s y s t e m i c ) H y p e r t e n s i o n ( s y s t e m i c ) Hypertension (systemic) Hypertension (systemic) Hypertension (systemic) Hypertension (systemic) Hypertension (systemic) Hypertension (systemic) Hypertension (systemic) Hypertension (systemic) Hypertension (systemic) Hypertension (systemic) Hypertension (systemic) Hypertension (systemic) Hypertension (systemic) Hypertension (systemic) Hypertension (systemic) Hypertension (systemic) Hypertension (systemic) Hypertension (systemic) Hypertension (systemic) Hypertension (systemic) Hypertension (systemic) Hypertension (systemic) Hypertension (systemic) Outpatient<td Attender: Nimisha Mazariegos 12/29/2017 [place] ID="[id number]">PATIENT [facility] 01: 57:00 PM ([place] ADVOCACY</td><td>[facility] EDT - [facility]</td><td>[facility] 12/29 Health Health 11:59:00 PM Center) Center</td><td>12/29/2017</td><td></td> EDT Outpatient<td Attender: [place] 12/13/2017 H CLE[place] ID="[id number]">ENDOCRIN EUGENE [facility] 03 :30:00 PM y ([place] OLOG OFFICE VISIT</td><td>[facility] EDT - p Neighborhood (ENDO) </td><td>[place] 12/13/2017 [facility] 04:13:41 PM r Cent er) Center</td><td>12/13/2017</td><td><content EDT t ID="[id number]">Obesity</con h tent>, <content y ID="[id number]">Hyperthyroid r ism Subclinical</content></td> o i d i s m S u b c l i n i c a l O b e s i t y H y p e r t h y r o i d i s m S u b c l i n i c a l O b e s i t y H y p e r t h y r o i d i s m S u b c l i n i c a l O b e s i t y H y p e r t h y r o i d i s m S u b c l i n i c a l O b e s i t y H y p e r t h y r o i d i s m S u b c l i n i c a l O b e s i t y H y p e r t h y r o i d i s m S u b c l i n i c a l O b e s i t y H y p e r t h y r o i d i s m S u b c l i n i c a l O b e s i t y H y p e r t h y r o i d i s m S u b c l i n i c a l O b e s i t y H y p e r t h y r o i d i s m S u b c l i n i c a l O b e s i t y H y p e r t h y r o i d i s m S u b c l i n i c a l O b e s i t y H y p e r t h y r o i d i s m S u b c l i n i c a l O b e s i t y H y p e r t h y r o i d i s m S u b c l i n i c a l O b e s i t y H y p e r t h y r o i d i s m S u b c l i n i c a l O b e s i t y H y p e r t h y r o i d i s m S u b c l i n i c a l O b e s i t y H y p e r t h y r o i d i s m S u b c l i n i c a l O b e s i t y H y p e r t h y r o i d i s m S u b c l i n i c a l O b e s i t y H y p e r t h y r o i d i s m S u b c l i n i c a l O b e s i t y H y p e r t h y r o i d i s m S u b c l i n i c a l O b e s i t y H y p e r t h y r o i d i s m S u b c l i n i c a l O b e s i t y H y p e r t h y r o i d i s m S u b c l i n i c a l O b e s i t y H y p e r t h y r o i d i s m S u b c l i n i c a l O b e s i t y H y p e r t h y r o i d i s m S u b c l i n i c a l O b e s i t y H y p e r t h y r o i d i s m S u b c l i n i c a l O b e s i t y Hyperthyroidism Subclinical Obesity Hyperthyroidism Subclinical Obesity Hyperthyroidism Subclinical Obesity Hyperthyroidism Subclinical Obesity Hyperthyroidism Subclinical Obesity Hyperthyroidism Subclinical Obesity Hyperthyroidism Subclinical Obesity Hyperthyroidism Subclinical Obesity Hyperthyroidism Subclinical Obesity Hyperthyroidism Subclinical Obesity Hyperthyroidism Subclinical Obesity Hyperthyroidism Subclinical Obesity Hyperthyroidism Subclinical Obesity Hyperthyroidism Subclinical Obesity Hyperthyroidism Subclinical Obesity Hyperthyroidism Subclinical Obesity Hyperthyroidism Subclinical Obesity Hyperthyroidism Subclinical Obesity Hyperthyroidism Subclinical Obesity Hyperthyroidism Subclinical Obesity Hyperthyroidism Subclinical Obesity Hyperthyroidism Subclinical Obesity Hyperthyroidism Subclinical Obesity Outpatient<td Attender: Cate 12/01/2017 CLEMENTINE ID="[id number]">PATIENT [facility] 02:47 :00 PM (Nimisha Mazariegos ADVOCACY</td><td>[facility] EDT [facility]</td><td>[facility] 2017 Health Center</td><td>12/01/2017</td><td></td> 11:59:0 0 PM [place]) EDT Outpatient<td Attender: Cate 11/29/2017 CLEMENTINE ID="[id number]">OFFICE [facility] 03:30: 00 PM (Nimisha Mazariegos VISIT</td><[facility]</td><td>[facility] 11/29/2017 Health Center</td><td>11/29/2017</td><td></td> 04:12:5 5 PM Center) EDT Outpatient<td Attender: Cate 10/30/2017 H CLEMENTINE ID="[id number]">[facility] y (Nimisha Mazarieogs /td><td>[facility]</td><td>[facility] EDT - [facility] 10/30/2017 e Health Center</td><td>10/30/2017</td><td><content 03:5 9:40 PM r Center) ID="[id number]">Hyperthyroid EDT t ism</content>, <content h ID="[id number]">Hypertension y (systemic)</content></td> r o i d i s m H y p e r t h y r o i d i s m H y p e r t h y r o i d i s m H y p e r t h y r o i d i s m H y p e r t h y r o i d i s m H y p e r t h y r o i d i s m H y p e r t h y r o i d i s m H y p e r t h y r o i d i s m H y p e r t h y r o i d i s m H y p e r t h y r o i d i s m H y p e r t h y r o i d i s m H y p e r t h y r o i d i s m H y p e r t h y r o i d i s m H y p e r t h y r o i d i s m H y p e r t h y r o i d i s m H y p e r t h y r o i d i s m H y p e r t h y r o i d i s m H y p e r t h y r o i d i s m H y p e r t h y r o i d i s m H y p e r t h y r o i d i s m H y p e r t h y r o i d i s m H y p e r t h y r o i d i s m H y p e r t h y r o i d i s m H y p e r t e n s i o n ( s y s t e m i c ) H y p e r t e n s i o n ( s y s t e m i c ) H y p e r t e n s i o n ( s y s t e m i c ) H y p e r t e n s i o n ( s y s t e m i c ) H y p e r t e n s i o n ( s y s t e m i c ) H y p e r t e n s i o n ( s y s t e m i c ) H y p e r t e n s i o n ( s y s t e m i c ) H y p e r t e n s i o n ( s y s t e m i c ) H y p e r t e n s i o n ( s y s t e m i c ) H y p e r t e n s i o n ( s y s t e m i c ) H y p e r t e n s i o n ( s y s t e m i c ) H y p e r t e n s i o n ( s y s t e m i c ) H y p e r t e n s i o n ( s y s t e m i c ) H y p e r t e n s i o n ( s y s t e m i c ) H y p e r t e n s i o n ( s y s t e m i c ) H y p e r t e n s i o n ( s y s t e m i c ) H y p e r t e n s i o n ( s y s t e m i c ) H y p e r t e n s i o n ( s y s t e m i c ) H y p e r t e n s i o n ( s y s t e m i c ) H y p e r t e n s i o n ( s y s t e m i c ) H y p e r t e n s i o n ( s y s t e m i c ) H y p e r t e n s i o n ( s y s t e m i c ) H y p e r t e n s i o n ( s y s t e m i c ) Hyperthyroidism Hyperthyroidism Hyperthyroidism Hyperthyroidism Hyperthyroidism Hyperthyroidism Hyperthyroidism Hyperthyroidism Hyperthyroidism Hyperthyroidism Hyperthyroidism Hyperthyroidism Hyperthyroidism Hyperthyroidism Hyperthyroidism Hyperthyroidism Hyperthyroidism Hyperthyroidism Hyperthyroidism Hyperthyroidism Hyperthyroidism Hyperthyroidism Hyperthyroidism Hypertension (systemic) Hypertension (systemic) Hypertension (systemic) Hypertension (systemic) Hypertension (systemic) Hypertension (systemic) Hypertension (systemic) Hypertension (systemic) Hypertension (systemic) Hypertension (systemic) Hypertension (systemic) Hypertension (systemic) Hypertension (systemic) Hypertension (systemic) Hypertension (systemic) Hypertension (systemic) Hypertension (systemic) Hypertension (systemic) Hypertension (systemic) Hypertension (systemic) Hypertension (systemic) Hypertension (systemic) Hypertension (systemic) Outpatient<td Attender: Cate 10/02/2017 [place] ID="[id number]">*OUTREACH*</td><td>[facility] 11:35:00 AM ([facility]</td><td>[facility] DT - Neighborhood Center</td><td>10/02/2017</td><td></td> MORTGAGE LOAN INTERVIEWER Center [address] [place] [address] 11:59:00 PM Center) EDT Outpatient<td ID="[id number]">[Patient Attende r: Cate 09/28/2017 [place] Encounter]</td><td>[facility]</td><td>[facility] 11:43:00 AM ([facility]</td><td>09/28/2017</td><td></td> [facility] EDT - Neighborhood MORTGAGE LOAN INTERVIEWER Center 09/28/2017 Health 11:59:00 PM Center) EDT Outpatient<td Attender: Cate 09/25/2017 [facility] ID="[id number]">WALKINS</td><td>[facility] 03:15:00 PM y ([facility]</td><td>[facility] E DT - p Neighborhood Center</td><td>09/25/2017</td><td><content MORTGAGE LOAN INTERVIEWER Center 09/01 e Health ID="[id number]">Hypertension 04: 3:55 PM r Center) (systemic)</content></td> EDT t e n s i o n ( s y s t e m i c ) H y p e r t e n s i o n ( s y s t e m i c ) H y p e r t e n s i o n ( s y s t e m i c ) H y p e r t e n s i o n ( s y s t e m i c ) H y p e r t e n s i o n ( s y s t e m i c ) H y p e r t e n s i o n ( s y s t e m i c ) H y p e r t e n s i o n ( s y s t e m i c ) H y p e r t e n s i o n ( s y s t e m i c ) H y p e r t e n s i o n ( s y s t e m i c ) H y p e r t e n s i o n ( s y s t e m i c ) H y p e r t e n s i o n ( s y s t e m i c ) H y p e r t e n s i o n ( s y s t e m i c ) H y p e r t e n s i o n ( s y s t e m i c ) H y p e r t e n s i o n ( s y s t e m i c ) H y p e r t e n s i o n ( s y s t e m i c ) H y p e r t e n s i o n ( s y s t e m i c ) H y p e r t e n s i o n ( s y s t e m i c ) H y p e r t e n s i o n ( s y s t e m i c ) H y p e r t e n s i o n ( s y s t e m i c ) H y p e r t e n s i o n ( s y s t e m i c ) H y p e r t e n s i o n ( s y s t e m i c ) H y p e r t e n s i o n ( s y s t e m i c ) H y p e r t e n s i o n ( s y s t e m i c ) Hypertension (systemic) Hypertension (systemic) Hypertension (systemic) Hypertension (systemic) Hypertension (systemic) Hypertension (systemic) Hypertension (systemic) Hypertension (systemic) Hypertension (systemic) Hypertension (systemic) Hypertension (systemic) Hypertension (systemic) Hypertension (systemic) Hypertension (systemic) Hypertension (systemic) Hypertension (systemic) Hypertension (systemic) Hypertension (systemic) Hypertension (systemic) Hypertension (systemic) Hypertension (systemic) Hypertension (systemic) Hypertension (systemic) Outpatient<td Attender: Cate 09/21/2017 [place] ID="[id number]">*OUTREACH*</td><td>[facility] 01:03:00 PM ([facility]</td><td>[facility] E DT - [facility] Center</td><td>09/21/2017</td><td></td> MORTGAGE LOAN INTERVIEWER Center [address] [place] [address] 11:59:00 PM Center) EDT Outpatient<td ID="[id number]">PATIENT Attender : Cate 09/19/2017 [place] ADVOCACY</td><td>[facility]</td><td>[facility] 01:01:00 PM ([facility]</td><td>09/19/2017</td><td></td> [facility] EDT - Neighborhood Center 09/19/2017 Health 11:59:00 PM Center) EDT Outpatient<td ID="[id number]">OFFICE Attender: Cate 09/18/2017 [place] VISIT</td><td>[facility]</td><td>[facility] 03:30:00 PM b ([facility]</td><td>09/18/2017</td><td><content [facility] EDT - e Neighborhood ID="[id number]">Obesity</content>, <content MORTGAGE LOAN INTERVIEWER Center 09/18/2017 s Health ID="[id number]">Routine History and 04:05:34 PM i [place]) Physical</content></td> EDT t y O b e s i t y O b e s i t y O b e s i t y O b e s i t y O b e s i t y O b e s i t y O b e s i t y O b e s i t y O b e s i t y O b e s i t y O b e s i t y O b e s i t y O b e s i t y O b e s i t y O b e s i t y O b e s i t y O b e s i t y O b e s i t y O b e s i t y O b e s i t y R o u t i n e H i s t o r y a n d P h y s i c a l R o u t i n e H i s t o r y a n d P h y s i c a l R o u t i n e H i s t o r y a n d P h y s i c a l R o u t i n e H i s t o r y a n d P h y s i c a l R o u t i n e H i s t o r y a n d P h y s i c a l R o u t i n e H i s t o r y a n d P h y s i c a l R o u t i n e H i s t o r y a n d P h y s i c a l R o u t i n e H i s t o r y a n d P h y s i c a l R o u t i n e H i s t o r y a n d P h y s i c a l R o u t i n e H i s t o r y a n d P h y s i c a l R o u t i n e H i s t o r y a n d P h y s i c a l R o u t i n e H i s t o r y a n d P h y s i c a l R o u t i n e H i s t o r y a n d P h y s i c a l R o u t i n e H i s t o r y a n d P h y s i c a l R o u t i n e H i s t o r y a n d P h y s i c a l R o u t i n e H i s t o r y a n d P h y s i c a l R o u t i n e H i s t o r y a n d P h y s i c a l R o u t i n e H i s t o r y a n d P h y s i c a l R o u t i n e H i s t o r y a n d P h y s i c a l R o u t i n e H i s t o r y a n d P h y s i c a l R o u t i n e H i s t o r y a n d P h y s i c a l O b e s i t y R o u t i n e H i s t o r y a n d P h y s i c a l O b e s i t y R o u t i n e H i s t o r y a n d P h y s i c a l Obesity Obesity Obesity Obesity Obesity Obesity Obesity Obesity Obesity Obesity Obesity Obesity Obesity Obesity Obesity Obesity Obesity Obesity Obesity Obesity Obesity Routine History and Physical Routine History and Physical Routine History and Physical Routine History and Physical Routine History and Physical Routine History and Physical Routine History and Physical Routine History and Physical Routine History and Physical Routine History and Physical Routine History and Physical Routine History and Physical Routine History and Physical Routine History and Physical Routine History and Physical Routine History and Physical Routine History and Physical Routine History and Physical Routine History and Physical Routine History and Physical Routine History and Physical Obesity Routine History and Physical Obesity Routine History and Physical Outpatient<td Attender: [place] 10/07/2016 [place] ID="[id number]">PATIENT CLES[place] Neighborhood 06: 37:00 PM ([place] ADVOCACY</td><td>[facility]td><td>[facility] 10/07 Health Health 11:59:00 PM Center) Center</td><td>10/07/2016</td><td></td> EDT Outpatient<td Attender: [place] 10/07/2016 [place] ID="[id number]">RADIOLOGY ASST [place] Neighborhood 11:30:0 0 AM ([place] ANNUAL</td><td>[facility] EDT [facility] </td><td>[facility] 10/07/2016 Health Health 12:48:40 PM Center) Center</td><td>10/07/2016</td><td></td> EDT Outpatient<td Attender: Cate 09/23/2016 [place] ID="[id number]">[facility] ([place] /td><td>[facility]</td><td>[facility] E DT - [facility] MORTGAGE LOAN INTERVIEWER 09/23/2016 Health [place]</td><td>09/23/2016</td><td></td> 01:10:0 8 PM Center) EDT Outpatient<td Attender: Cate 09/16/2016 [place] ID="[id number]">[facility] 11:30: 00 AM r ([place] VISIT</td><td>[facility] EDT - e [facility] </td><td>[facility] 09/16/2016 [facility]</td><td>09/16/2016</td><td><content 01:5 0:26 PM b [place]) ID="[id number]">Presbyopia</ EDT y content></td> o p i a P r e s b y o p i a P r e s b y o p i a P r e s b y o p i a P r e s b y o p i a P r e s b y o p i a P r e s b y o p i a P r e s b y o p i a P r e s b y o p i a P r e s b y o p i a P r e s b y o p i a P r e s b y o p i a P r e s b y o p i a P r e s b y o p i a P r e s b y o p i a P r e s b y o p i a P r e s b y o p i a P r e s b y o p i a P r e s b y o p i a P r e s b y o p i a P r e s b y o p i a P r e s b y o p i a P r e s b y o p i a Presbyopia Presbyopia Presbyopia Presbyopia Presbyopia Presbyopia Presbyopia Presbyopia Presbyopia Presbyopia Presbyopia Presbyopia Presbyopia Presbyopia Presbyopia Presbyopia Presbyopia Presbyopia Presbyopia Presbyopia Presbyopia Presbyopia Presbyopia Outpatient<td Attender: Cate 09/14/2016 [place] ID="[id number]">PATIENT [facility] 03:57 :00 PM ([place] ADVOCACY</td><td>[facility] EDT - [facility]</td><td>[facility] Center 2016 Health Center</td><td>09/14/2016</td><td></td> 11:59:0 0 PM Center) EDT Outpatient<td Attender: Cate 09/09/2016 [place] ID="[id number]">OFFICE [facility] 11:00: 00 AM ([place] VISIT</td><td>[facility] EST - Neighborhood MORTGAGE LOAN INTERVIEWER</td><td>[facility] MORTGAGE LOAN INTERVIEWER Center 09/09/2016 Health Center</td><td>09/09/2016</td><td></td> 11:01:0 7 AM Center) EST Outpatient<td Attender: Cate 01/19/2016 [place] ID="[id number]">[facility] 03:0 0:00 PM ([place] SIT</td><td>[facility] EDT - Neighborhood DDS</td><td>[facility] Center 01/19/2016 Health Center</td><td>01/19/2016</td><td></td> 11:59:0 0 PM Center) EDT Outpatient<td Attender: Cate 01/05/2016 [place] ID="[id number]">[facility] 05:0 0:00 PM ([place] SIT</td><td>[facility] HY</td><td>[facility] DENT Center 01/05/2016 Health Center</td><td>01/05/2016</td><td></td> 11:59:0 0 PM Center) EDT Outpatient<td Attender: [place] 12/22/2015 [place] ID="[id number]">DENTAL [facility] 03:00: 00 PM ([place] INITIAL VISIT</td><td>[facility] Health EDT - [facility] DD</td><td>[facility] 12/22/2015 Health Center</td><td>12/22/2015</td><td></td> 11:59:0 0 PM Center) EDT Outpatient<td Attender: [facility] 11/10/2015 R [place] ID="[id number]">RADIOLOGY ASST [facility] 03:30:00 PM o ([place] ANNUAL</td><td>ANDEVENDRA Thompson MD [facility] EDT - u [facility]</td><td>[facility] Health 11/10/2015 [facility] Center 05:48:18 PM i Center) Center</td><td>11/10/2015</td><td><content EDT n ID="[id number]">Routine e Gynecological Exam with Cervical Pap G Smear</content></td> y n e c o l o g i c a l E x a m w i t h C e r v i c a l P a p S m e a r R o u t i n e G y n e c o l o g i c a l E x a m w i t h C e r v i c a l P a p S m e a r R o u t i n e G y n e c o l o g i c a l E x a m w i t h C e r v i c a l P a p S m e a r R o u t i n e G y n e c o l o g i c a l E x a m w i t h C e r v i c a l P a p S m e a r R o u t i n e G y n e c o l o g i c a l E x a m w i t h C e r v i c a l P a p S m e a r R o u t i n e G y n e c o l o g i c a l E x a m w i t h C e r v i c a l P a p S m e a r R o u t i n e G y n e c o l o g i c a l E x a m w i t h C e r v i c a l P a p S m e a r R o u t i n e G y n e c o l o g i c a l E x a m w i t h C e r v i c a l P a p S m e a r R o u t i n e G y n e c o l o g i c a l E x a m w i t h C e r v i c a l P a p S m e a r R o u t i n e G y n e c o l o g i c a l E x a m w i t h C e r v i c a l P a p S m e a r R o u t i n e G y n e c o l o g i c a l E x a m w i t h C e r v i c a l P a p S m e a r R o u t i n e G y n e c o l o g i c a l E x a m w i t h C e r v i c a l P a p S m e a r R o u t i n e G y n e c o l o g i c a l E x a m w i t h C e r v i c a l P a p S m e a r R o u t i n e G y n e c o l o g i c a l E x a m w i t h C e r v i c a l P a p S m e a r R o u t i n e G y n e c o l o g i c a l E x a m w i t h C e r v i c a l P a p S m e a r R o u t i n e G y n e c o l o g i c a l E x a m w i t h C e r v i c a l P a p S m e a r R o u t i n e G y n e c o l o g i c a l E x a m w i t h C e r v i c a l P a p S m e a r R o u t i n e G y n e c o l o g i c a l E x a m w i t h C e r v i c a l P a p S m e a r R o u t i n e G y n e c o l o g i c a l E x a m w i t h C e r v i c a l P a p S m e a r R o u t i n e G y n e c o l o g i c a l E x a m w i t h C e r v i c a l P a p S m e a r R o u t i n e G y n e c o l o g i c a l E x a w i t h C e r v i c a l P a p S m e a r R o u t i n e G y n e c o l o g i c a l E x a m w i t h C e r v i c a l P a p S m e a r R o u t i n e G y n e c o l o g i c a l E x a m w i t h C e r v i c a l P a p S m e a r Routine Gynecological Exam with Cervical Pap Smear Routine Gynecological Exam with Cervical Pap Smear Routine Gynecological Exam with Cervical Pap Smear Routine Gynecological Exam with Cervical Pap Smear Routine Gynecological Exam with Cervical Pap Smear Routine Gynecological Exam with Cervical Pap Smear Routine Gynecological Exam with Cervical Pap Smear Routine Gynecological Exam with Cervical Pap Smear Routine Gynecological Exam with Cervical Pap Smear Routine Gynecological Exam with Cervical Pap Smear Routine Gynecological Exam with Cervical Pap Smear Routine Gynecological Exam with Cervical Pap Smear Routine Gynecological Exam with Cervical Pap Smear Routine Gynecological Exam with Cervical Pap Smear Routine Gynecological Exam with Cervical Pap Smear Routine Gynecological Exam with Cervical Pap Smear Routine Gynecological Exam with Cervical Pap Smear Routine Gynecological Exam with Cervical Pap Smear Routine Gynecological Exam with Cervical Pap Smear Routine Gynecological Exam with Cervical Pap Smear Routine Gynecological Exam with Cervical Pap Smear Routine Gynecological Exam with Cervical Pap Smear Routine Gynecological Exam with Cervical Pap Smear Outpatient<td Attender: Cate 11/03/2015 [place] ID="[id number]">RADIOLOGY ASST [facility] 04:00:00 PM ([place] ANNUAL</td><td>[facility] FABIAN PERALTA MD Health EDT - Neighborhood MD</td><td>[facility] 11/03/2015 Health Center</td><td>11/03/2015</td><td></td> 03:37:2 1 PM Center) EDT Outpatient<td Attender: Cate 10/26/2015 [place] ID="[id number]">*OUTRE [facility] 09:25: 00 AM ([place] ACH*</td><td>[facility] EDT - Neighborhood MORTGAGE LOAN INTERVIEWER</td><td[facility] Center</td><td>10/26/2015</td><td></td> 11:59:0 0 PM Center) EDT Outpatient<td Attender: Cate 10/14/2015 [place] ID="[id number]">COMPLE [facility] 03:00: 00 PM y ([place] TE PHYSICAL EXAM</td><td>[facility] EDT - p [facility] MORTGAGE LOAN INTERVIEWER</td><td>[facility] MORTGAGE LOAN INTERVIEWER Center 10/14/2015 e Health Center</td><td>10/14/2015</td><td><maninder 04:32: 00 PM r Center) nt EDT t ID="[id number]">Headache e Syndromes</content>, <content n ID="[id number]">Routine s History and Physical</content>, <content i ID="[id number]">Hypertensi o on (systemic)</content>, <content n ID="[id number]">Preventive ( Medicine Screening For s Depression</content>, <content y ID="[id number]">Preventive s Med Standardized Depression Screening: t Positive For Symptoms</content>, e <content m ID="[id number]">Varicose i Veins</content></td> c ) H y p e r t e n s i o n ( s y s t e m i c ) H y p e r t e n s i o n ( s y s t e m i c ) H y p e r t e n s i o n ( s y s t e m i c ) H y p e r t e n s i o n ( s y s t e m i c ) H y p e r t e n s i o n ( s y s t e m i c ) H y p e r t e n s i o n ( s y s t e m i c ) H y p e r t e n s i o n ( s y s t e m i c ) H y p e r t e n s i o n ( s y s t e m i c ) H y p e r t e n s i o n ( s y s t e m i c ) H y p e r t e n s i o n ( s y s t e m i c ) H y p e r t e n s i o n ( s y s t e m i c ) H y p e r t e n s i o n ( s y s t e m i c ) H y p e r t e n s i o n ( s y s t e m i c ) H y p e r t e n s i o n ( s y s t e m i c ) H y p e r t e n s i o n ( s y s t e m i c ) H y p e r t e n s i o n ( s y s t e m i c ) H y p e r t e n s i o n ( s y s t e m i c ) H y p e r t e n s i o n ( s y s t e m i c ) H y p e r t e n s i o n ( s y s t e m i c ) H y p e r t e n s i o n ( s y s t e m i c ) H y p e r t e n s i o n ( s y s t e m i c ) H y p e r t e n s i o n ( s y s t e m i c ) P r e v e n t i v e M e d S t a n d a r d i z e d D e p r e s s i o n S c r e e n i n g : P o s i t i v e F o r S y m p t o m s P r e v e n t i v e M e d i c i n e S c r e e n i n g F o r D e p r e s s i o n P r e v e n t i v e M e d S t a n d a r d i z e d D e p r e s s i o n S c r e e n i n g : P o s i t i v e F o r S y m p t o m s P r e v e n t i v e M e d i c i n e S c r e e n i n g F o r D e p r e s s i o n P r e v e n t i v e M e d S t a n d a r d i z e d D e p r e s s i o n S c r e e n i n g : P o s i t i v e F o r S y m p t o m s P r e v e n t i v e M e d i c i n e S c r e e n i n g F o r D e p r e s s i o n P r e v e n t i v e M e d S t a n d a r d i z e d D e p r e s s i o n S c r e e n i n g : P o s i t i v e F o r S y m p t o m s P r e v e n t i v e M e d i c i n e S c r e e n i n g F o r D e p r e s s i o n P r e v e n t i v e M e d S t a n d a r d i z e d D e p r e s s i o n S c r e e n i n g : P o s i t i v e F o r S y m p t o m s P r e v e n t i v e M e d i c i n e S c r e e n i n g F o r D e p r e s s i o n P r e v e n t i v e M e d S t a n d a r d i z e d D e p r e s s i o n S c r e e n i n g : P o s i t i v e F o r S y m p t o m s P r e v e n t i v e M e d i c i n e S c r e e n i n g F o r D e p r e s s i o n P r e v e n t i v e M e d S t a n d a r d i z e d D e p r e s s i o n S c r e e n i n g : P o s i t i v e F o r S y m p t o m s P r e v e n t i v e M e d i c i n e S c r e e n i n g F o r D e p r e s s i o n P r e v e n t i v e M e d S t a n d a r d i z e d D e p r e s s i o n S c r e e n i n g : P o s i t i v e F o r S y m p t o m s P r e v e n t i v e M e d i c i n e S c r e e n i n g F o r D e p r e s s i o n P r e v e n t i v e M e d S t a n d a r d i z e d D e p r e s s i o n S c r e e n i n g : P o s i t i v e F o r S y m p t o m s P r e v e n t i v e M e d i c i n e S c r e e n i n g F o r D e p r e s s i o n P r e v e n t i v e M e d S t a n d a r d i z e d D e p r e s s i o n S c r e e n i n g : P o s i t i v e F o r S y m p t o m s P r e v e n t i v e M e d i c i n e S c r e e n i n g F o r D e p r e s s i o n P r e v e n t i v e M e d S t a n d a r d i z e d D e p r e s s i o n S c r e e n i n g : P o s i t i v e F o r S y m p t o m s P r e v e n t i v e M e d i c i n e S c r e e n i n g F o r D e p r e s s i o n P r e v e n t i v e M e d S t a n d a r d i z e d D e p r e s s i o n S c r e e n i n g : P o s i t i v e F o r S y m p t o m s P r e v e n t i v e M e d i c i n e S c r e e n i n g F o r D e p r e s s i o n P r e v e n t i v e M e d S t a n d a r d i z e d D e p r e s s i o n S c r e e n i n g : P o s i t i v e F o r S y m p t o m s P r e v e n t i v e M e d i c i n e S c r e e n i n g F o r D e p r e s s i o n V a r i c o s e V e i n s R o u t i n e H i s t o r y a n d P h y s i c a l H e a d a c h e S y n d r o m e s V a r i c o s e V e i n s R o u t i n e H i s t o r y a n d P h y s i c a l H e a d a c h e S y n d r o m e s V a r i c o s e V e i n s R o u t i n e H i s t o r y a n d P h y s i c a l H e a d a c h e S y n d r o m e s V a r i c o s e V e i n s R o u t i n e H i s t o r y a n d P h y s i c a l H e a d a c h e S y n d r o m e s V a r i c o s e V e i n s R o u t i n e H i s t o r y a n d P h y s i c a l H e a d a c h e S y n d r o m e s V a r i c o s e V e i n s R o u t i n e H i s t o r y a n d P h y s i c a l H e a d a c h e S y n d r o m e s V a r i c o s e V e i n s R o u t i n e H i s t o r y a n d P h y s i c a l H e a d a c h e S y n d r o m e s V a r i c o s e V e i n s R o u t i n e H i s t o r y a n d P h y s i c a l H e a d a c h e S y n d r o m e s V a r i c o s e V e i n s R o u t i n e H i s t o r y a n d P h y s i c a l H e a d a c h e S y n d r o m e s V a r i c o s e V e i n s R o u t i n e H i s t o r y a n d P h y s i c a l H e a d a c h e S y n d r o m e s V a r i c o s e V e i n s R o u t i n e H i s t o r y a n d P h y s i c a l H e a d a c h e S y n d r o m e s V a r i c o s e V e i n s R o u t i n e H i s t o r y a n d P h y s i c a l H e a d a c h e S y n d r o m e s V a r i c o s e V e i n s R o u t i n e H i s t o r y a n d P h y s i c a l H e a d a c h e S y n d r o m e s V a r i c o s e V e i n s P r e v e n t i v e M e d S t a n d a r d i z e d D e p r e s s i o n S c r e e n i n g : P o s i t i v e F o r S y m p t o m s P r e v e n t i v e M e d i c i n e S c r e e n i n g F o r D e p r e s s i o n R o u t i n e H i s t o r y a n d P h y s i c a l H e a d a c h e S y n d r o m e s V a r i c o s e V e i n s P r e v e n t i v e M e d S t a n d a r d i z e d D e p r e s s i o n S c r e e n i n g : P o s i t i v e F o r S y m p t o m s P r e v e n t i v e M e d i c i n e S c r e e n i n g F o r D e p r e s s i o n R o u t i n e H i s t o r y a n d P h y s i c a l H e a d a c h e S y n d r o m e s V a r i c o s e V e i n s P r e v e n t i v e M e d S t a n d a r d i z e d D e p r e s s i o n S c r e e n i n g : P o s i t i v e F o r S y m p t o m s P r e v e n t i v e M e d i c i n e S c r e e n i n g F o r D e p r e s s i o n R o u t i n e H i s t o r y a n d P h y s i c a l H e a d a c h e S y n d r o m e s V a r i c o s e V e i n s P r e v e n t i v e M e d S t a n d a r d i z e d D e p r e s s i o n S c r e e n i n g : P o s i t i v e F o r S y m p t o m s P r e v e n t i v e M e d i c i n e S c r e e n i n g F o r D e p r e s s i o n R o u t i n e H i s t o r y a n d P h y s i c a l H e a d a c h e S y n d r o m e s V a r i c o s e V e i n s P r e v e n t i v e M e d S t a n d a r d i z e d D e p r e s s i o n S c r e e n i n g : P o s i t i v e F o r S y m p t o m s P r e v e n t i v e M e d i c i n e S c r e e n i n g F o r D e p r e s s i o n R o u t i n e H i s t o r y a n d P h y s i c a l H e a d a c h e S y n d r o m e s V a r i c o s e V e i n s P r e v e n t i v e M e d S t a n d a r d i z e d D e p r e s s i o n S c r e e n i n g : P o s i t i v e F o r S y m p t o m s P r e v e n t i v e M e d i c i n e S c r e e n i n g F o r D e p r e s s i o n R o u t i n e H i s t o r y a n d P h y s i c a l H e a d a c h e S y n d r o m e s V a r i c o s e V e i n s P r e v e n t i v e M e d S t a n d a r d i z e d D e p r e s s i o n S c r e e n i n g : P o s i t i v e F o r S y m p t o m s P r e v e n t i v e M e d i c i n e S c r e e n i n g F o r D e p r e s s i o n R o u t i n e H i s t o r y a n d P h y s i c a l H e a d a c h e S y n d r o m e s V a r i c o s e V e i n s P r e v e n t i v e M e d S t a n d a r d i z e d D e p r e s s i o n S c r e e n i n g : P o s i t i v e F o r S y m p t o m s P r e v e n t i v e M e d i c i n e S c r e e n i n g F o r D e p r e s s i o n R o u t i n e H i s t o r y a n d P h y s i c a l H e a d a c h e S y n d r o m e s V a r i c o s e V e i n s P r e v e n t i v e M e d S t a n d a r d i z e d D e p r e s s i o n S c r e e n i n g : P o s i t i v e F o r S y m p t o m s P r e v e n t i v e M e d i c i n e S c r e e n i n g F o r D e p r e s s i o n R o u t i n e H i s t o r y a n d P h y s i c a l H e a d a c h e S y n d r o m e s V a r i c o s e V e i n s P r e v e n t i v e M e d S t a n d a r d i z e d D e p r e s s i o n S c r e e n i n g : P o s i t i v e F o r S y m p t o m s P r e v e n t i v e M e d i c i n e S c r e e n i n g F o r D e p r e s s i o n R o u t i n e H i s t o r y a n d P h y s i c a l H e a d a c h e S y n d r o m e s Hypertension (systemic) Hypertension (systemic) Hypertension (systemic) Hypertension (systemic) Hypertension (systemic) Hypertension (systemic) Hypertension (systemic) Hypertension (systemic) Hypertension (systemic) Hypertension (systemic) Hypertension (systemic) Hypertension (systemic) Hypertension (systemic) Hypertension (systemic) Hypertension (systemic) Hypertension (systemic) Hypertension (systemic) Hypertension (systemic) Hypertension (systemic) Hypertension (systemic) Hypertension (systemic) Hypertension (systemic) Hypertension (systemic) Preventive Med Standardized Depression S creening: Positive For Symptoms Preventive Medicine Screening For Depres brodie Preventive Med Standardized Depression S creening: Positive For Symptoms Preventive Medicine Screening For Depres brodie Preventive Med Standardized Depression S creening: Positive For Symptoms Preventive Medicine Screening For Depres brodie Preventive Med Standardized Depression S creening: Positive For Symptoms Preventive Medicine Screening For Depres brodie Preventive Med Standardized Depression S creening: Positive For Symptoms Preventive Medicine Screening For Depres brodie Preventive Med Standardized Depression S creening: Positive For Symptoms Preventive Medicine Screening For Depres brodie Preventive Med Standardized Depression S creening: Positive For Symptoms Preventive Medicine Screening For Depres brodie Preventive Med Standardized Depression S creening: Positive For Symptoms Preventive Medicine Screening For Depres brodie Preventive Med Standardized Depression S creening: Positive For Symptoms Preventive Medicine Screening For Depres brodie Preventive Med Standardized Depression S creening: Positive For Symptoms Preventive Medicine Screening For Depres brodie Preventive Med Standardized Depression S creening: Positive For Symptoms Preventive Medicine Screening For Depres brodie Preventive Med Standardized Depression S creening: Positive For Symptoms Preventive Medicine Screening For Depres brodie Preventive Med Standardized Depression S creening: Positive For Symptoms Preventive Medicine Screening For Depres brodie Varicose Veins Routine History and Physical Headache Syndromes Varicose Veins Routine History and Physical Headache Syndromes Varicose Veins Routine History and Physical Headache Syndromes Varicose Veins Routine History and Physical Headache Syndromes Varicose Veins Routine History and Physical Headache Syndromes Varicose Veins Routine History and Physical Headache Syndromes Varicose Veins Routine History and Physical Headache Syndromes Varicose Veins Routine History and Physical Headache Syndromes Varicose Veins Routine History and Physical Headache Syndromes Varicose Veins Routine History and Physical Headache Syndromes Varicose Veins Routine History and Physical Headache Syndromes Varicose Veins Routine History and Physical Headache Syndromes Varicose Veins Routine History and Physical Headache Syndromes Varicose Veins Preventive Med Standardized Depression S creening: Positive For Symptoms Preventive Medicine Screening For Depres brodie Routine History and Physical Headache Syndromes Varicose Veins Preventive Med Standardized Depression S creening: Positive For Symptoms Preventive Medicine Screening For Depres brodie Routine History and Physical Headache Syndromes Varicose Veins Preventive Med Standardized Depression S creening: Positive For Symptoms Preventive Medicine Screening For Depres brodie Routine History and Physical Headache Syndromes Varicose Veins Preventive Med Standardized Depression S creening: Positive For Symptoms Preventive Medicine Screening For Depres brodie Routine History and Physical Headache Syndromes Varicose Veins Preventive Med Standardized Depression S creening: Positive For Symptoms Preventive Medicine Screening For Depres brodie Routine History and Physical Headache Syndromes Varicose Veins Preventive Med Standardized Depression S creening: Positive For Symptoms Preventive Medicine Screening For Depres brodie Routine History and Physical Headache Syndromes Varicose Veins Preventive Med Standardized Depression S creening: Positive For Symptoms Preventive Medicine Screening For Depres brodie Routine History and Physical Headache Syndromes Varicose Veins Preventive Med Standardized Depression S creening: Positive For Symptoms Preventive Medicine Screening For Depres brodie Routine History and Physical Headache Syndromes Varicose Veins Preventive Med Standardized Depression S creening: Positive For Symptoms Preventive Medicine Screening For Depres brodie Routine History and Physical Headache Syndromes Varicose Veins Preventive Med Standardized Depression S creening: Positive For Symptoms Preventive Medicine Screening For Depres brodie Routine History and Physical Headache Syndromes Outpatient<td Attender: Cate 08/27/2014 [place] ID="[id number]">OFFICE [facility] 02:30: 00 PM ([place] VISIT</td><td>[facility] MD</td><td>[facility] MD Center 08/27/2014 Health Center</td><td>08/27/2014</td><td></td> 04:13:4 5 PM Center) EST Outpatient<td Attender: Cate 04/08/2014 Alexandro CLEMENTINE ID="[id number]">[facility] 03:32 :00 PM s ([place] E PHYSICAL EXAM</td><td>[facility] EDT - s [facility] </td><td>[facility] MD Center 04/08/2014 e Health Center</td><td>04/08/2014</td><td><[place]ten 05:24 :07 PM s Center) t EDT s ID="[id number]">Assessment m [use For S.o.a.p. Note Free e Text]</content></td> n t [ u s e F o r S . o . a . p . N o t e F r e e T e x t ] A s s e s s m e n t [ u s e F o r S . o . a . p . N o t e F r e e T e x t ] A s s e s s m e n t [ u s e F o r S . o . a . p . N o t e F r e e T e x t ] A s s e s s m e n t [ u s e F o r S . o . a . p . N o t e F r e e T e x t ] A s s e s s m e n t [ u s e F o r S . o . a . p . N o t e F r e e T e x t ] A s s e s s m e n t [ u s e F o r S . o . a . p . N o t e F r e e T e x t ] A s s e s s m e n t [ u s e F o r S . o . a . p . N o t e F r e e T e x t ] A s s e s s m e n t [ u s e F o r S . o . a . p . N o t e F r e e T e x t ] A s s e s s m e n t [ u s e F o r S . o . a . p . N o t e F r e e T e x t ] A s s e s s m e n t [ u s e F o r S . o . a . p . N o t e F r e e T e x t ] A s s e s s m e n t [ u s e F o r S . o . a . p . N o t e F r e e T e x t ] A s s e s s m e n t [ u s e F o r S . o . a . p . N o t e F r e e T e x t ] A s s e s s m e n t [ u s e F o r S . o . a . p . N o t e F r e e T e x t ] A s s e s s m e n t [ u s e F o r S . o . a . p . N o t e F r e e T e x t ] A s s e s s m e n t [ u s e F o r S . o . a . p . N o t e F r e e T e x t ] A s s e s s m e n t [ u s e F o r S . o . a . p . N o t e F r e e T e x t ] A s s e s s m e n t [ u s e F o r S . o . a . p . N o t e F r e e T e x t ] A s s e s s m e n t [ u s e F o r S . o . a . p . N o t e F r e e T e x t ] A s s e s s m e n t [ u s e F o r S . o . a . p . N o t e F r e e T e x t ] A s s e s s m e n t [ u s e F o r S . o . a . p . N o t e F r e e T e x t ] A s s e s s m e n t [ u s e F o r S . o . a . p . N o t e F r e e T e x t ] A s s e s s m e n t [ u s e F o r S . o . a . p . N o t e F r e e T e x t ] A s s e s s m e n t [ u s e F o r S . o . a . p . N o t e F r e e T e x t ] Assessment [use For S.o.a.p. Note Free T ext] Assessment [use For S.o.a.p. Note Free T ext] Assessment [use For S.o.a.p. Note Free T ext] Assessment [use For S.o.a.p. Note Free T ext] Assessment [use For S.o.a.p. Note Free T ext] Assessment [use For S.o.a.p. Note Free T ext] Assessment [use For S.o.a.p. Note Free T ext] Assessment [use For S.o.a.p. Note Free T ext] Assessment [use For S.o.a.p. Note Free T ext] Assessment [use For S.o.a.p. Note Free T ext] Assessment [use For S.o.a.p. Note Free T ext] Assessment [use For S.o.a.p. Note Free T ext] Assessment [use For S.o.a.p. Note Free T ext] Assessment [use For S.o.a.p. Note Free T ext] Assessment [use For S.o.a.p. Note Free T ext] Assessment [use For S.o.a.p. Note Free T ext] Assessment [use For S.o.a.p. Note Free T ext] Assessment [use For S.o.a.p. Note Free T ext] Assessment [use For S.o.a.p. Note Free T ext] Assessment [use For S.o.a.p. Note Free T ext] Assessment [use For S.o.a.p. Note Free T ext] Assessment [use For S.o.a.p. Note Free T ext] Assessment [use For S.o.a.p. Note Free T ext] Outpatient<td ID="[id number]">OFFICE Attender: Cate 01/29/2014 PresbyopiaPresbyopiaPresbyopiaPresbyopiaPresbyopiaPresbyopiaPresbyopiaPresbyopia PresbyopiaPresbyopiaPresbyopiaPresbyopiaPresbyopiaPresbyopiaPresbyopiaPresbyopia PresbyopiaPresbyopiaPresbyopiaPresbyopiaPresbyopiaPresbyopiaPresbyopia [place] VISIT</td><td>JESSICA ERICKSON MD</td><td>[facility] 10:48:00 AM ([facility]</td><td>01/29/2014</td><td><content BORON MD Health EDT - Neighborhood ID="[id number]">Presbyopia</content></td> Ce nter 01/29/2014 Health 11:14:20 AM Center) EDT Presbyopia Presbyopia Presbyopia Presbyopia Presbyopia Presbyopia Presbyopia Presbyopia Presbyopia Presbyopia Presbyopia Presbyopia Presbyopia Presbyopia Presbyopia Presbyopia Presbyopia Presbyopia Presbyopia Presbyopia Presbyopia Presbyopia Presbyopia Outpatient<td ID="[id number]">OFFICE Attender: Cate 10/02/2013 Refractive Error - MyopiaRefractive Erro r - MyopiaRefractive Error - MyopiaRefractive Error - MyopiaRefractive Error - MyopiaRefractive Error - [place] VISIT</td><td>JESSICA ERICKSON MD</td><td>[facility] 02:18:00 PM MyopiaRefractive Error - MyopiaRefractiv e Error - MyopiaRefractive Error - MyopiaRefractive Error - MyopiaRefractive Error - MyopiaRefractive Error - ([facility]</td><td>10/02/2013</td><td><content BORON MD [facility] th EDT - MyopiaRefractive Error - Neighborhood ID="[id number]">Refractive Error - Cente r 10/02/2013 MyopiaPresbyopiaPresbyopiaPresbyopiaPresbyopiaPresbyopiaPresbyopiaPresbyopia[facility] Myopia</content>, <content 03:00:53 PM E rror - MyopiaPresbyopiaRefractive Error - MyopiaPresbyopiaRefractive Error - MyopiaPresbyopiaRefractive Error - MyopiaPresbyopiaRefractive Error - Center) ID="[id number]">Presbyopia</content></td> EDT MyopiaPresbyopiaRefractive Error - MyopiaPresbyopiaRefractive Error - MyopiaPresbyopiaRefractive Error - MyopiaPresbyopiaRefractive Error - MyopiaPresbyopiaRefractiv e Error - Myopia Refractive Error - Myopia Refractive Error - Myopia Refractive Error - Myopia Refractive Error - Myopia Refractive Error - Myopia Refractive Error - Myopia Refractive Error - Myopia Refractive Error - Myopia Refractive Error - Myopia Refractive Error - Myopia Refractive Error - Myopia Refractive Error - Myopia Refractive Error - Myopia Presbyopia Presbyopia Presbyopia Presbyopia Presbyopia Presbyopia Presbyopia Presbyopia Presbyopia Presbyopia Presbyopia Presbyopia Presbyopia Presbyopia Refractive Error - Myopia Presbyopia Refractive Error - Myopia Presbyopia Refractive Error - Myopia Presbyopia Refractive Error - Myopia Presbyopia Refractive Error - Myopia Presbyopia Refractive Error - Myopia Presbyopia Refractive Error - Myopia Presbyopia Refractive Error - Myopia Presbyopia Refractive Error - Myopia Presbyopia Refractive Error - Myopia Outpatient<td Attender: Cate 07/19/2013 [place] ID="[id number]">[facility] 10:36: 00 AM ([place] Update*</td><td>PATRICIA PERALTA MD Health EST - Neighborhood </td><td>[facility] 07/19/2013 Health Center</td><td>07/19/2013</td><td></td> 11:59:0 0 PM Center) EST Outpatient<td Attender: Cate 07/09/2013 B [place] ID="[id number]">[facility] 03:53 :00 PM r ([place] </td><td>PATRICIA PERALTA MD Health EST - e Bre shukla MD</td><td>[facility] 07/09/2013 a Health Center</td><td>07/09/2013</td><td><conten 05:05 :42 PM [facility]) t ID="[id number]">Breast EST t Disorders</content></td> D i s o r d e r s B r e a s t D i s o r d e r s B r e a s t D i s o r d e r s B r e a s t D i s o r d e r s B r e a s t D i s o r d e r s B r e a s t D i s o r d e r s B r e a s t D i s o r d e r s B r e a s t D i s o r d e r s B r e a s t D i s o r d e r s B r e a s t D i s o r d e r s B r e a s t D i s o r d e r s B r e a s t D i s o r d e r s B r e a s t D i s o r d e r s B r e a s t D i s o r d e r s B r e a s t D i s o r d e r s B r e a s t D i s o r d e r s B r e a s t D i s o r d e r s B r e a s t D i s o r d e r s B r e a s t D i s o r d e r s B r e a s t D i s o r d e r s B r e a s t D i s o r d e r s B r e a s t D i s o r d e r s B r e a s t D i s o r d e r s Breast Disorders Breast Disorders Breast Disorders Breast Disorders Breast Disorders Breast Disorders Breast Disorders Breast Disorders Breast Disorders Breast Disorders Breast Disorders Breast Disorders Breast Disorders Breast Disorders Breast Disorders Breast Disorders Breast Disorders Breast Disorders Breast Disorders Breast Disorders Breast Disorders Breast Disorders Breast Disorders Outpatient<td Attender: 06/20/2013 [place] ID="[id number]">*Chart [facility] 10:17: 00 AM ([place] Update*</td><td>ELVE SAIRA MD</td><td> S[facility] EST - Neighborhood 06/20/2013 Health </td><td>06/20/2013</td><td></td> 11:59:00 PM Center) EST Outpatient<td Attender: Sony 06/13/2013 [place] ID="[id number]">Follow ELIANA gary 05:01: 00 PM ([facility]</td><td>ELIANA AVILA MD</td><td>Cate AVILA MD [facility]mu [facility] nity 06/13/2013 Health Center</td><td>06/13/2013</td><td></td> Healt 07:13:1 6 PM Center) h EST Cente r Outpatient<td Attender: Sony 06/10/2013 Suzanne [place] ID="[id number]">RADIOLOGY ASST PATRICIA gary 04:39:00 PM ne ([place] ANNUAL</td><td>PATRICIA PERALTA MD Commu [facility] </td><td>[facility] nit 06/10/2013 ry Health Center</td><td>06/10/2013</td><td><conten Healt 07:08 :55 PM and Center) t ID="[id number]">Routine h EST Physi History and Physical</content></td> Cente calRo r utine Histo ry and Physi calRo utine Histo ry and Physi calRo utine Histo ry and Physi calRo utine Histo ry and Physi calRo utine Histo ry and Physi calRo utine Histo ry and Physi calRo utine Histo ry and Physi calRo utine Histo ry and Physi calRo utine Histo ry and Physi calRo utine Histo ry and Physi calRo utine Histo ry and Physi calRo utine Histo ry and Physi calRo utine Histo ry and Physi calRo utine Histo ry and Physi calRo utine Histo ry and Physi calRo utine Histo ry and Physi calRo utine Histo ry and Physi calRo utine Histo ry and Physi calRo utine Histo ry and Physi calRo utine Histo ry and Physi calRo utine Histo ry and Physi calRo utine Histo ry and Physi patrick Routine History and Physical Routine History and Physical Routine History and Physical Routine History and Physical Routine History and Physical Routine History and Physical Routine History and Physical Routine History and Physical Routine History and Physical Routine History and Physical Routine History and Physical Routine History and Physical Routine History and Physical Routine History and Physical Routine History and Physical Routine History and Physical Routine History and Physical Routine History and Physical Routine History and Physical Routine History and Physical Routine History and Physical Routine History and Physical Routine History and Physical Outpatient<td Attender: Cate 06/10/2013 [place] ID="[id number]">*No [facility] 04:01:00 PM ([place] Show*</td><td>PATRICIA PERALTA MD Health EST - [facility] </td><td>[facility] 06/10/2013 Health Center</td><td>06/10/2013</td><td></td> 11:59:0 0 PM Center) EST Outpatient<td Attender: 06/03/2013 [place] ID="[id number]">*[facility] LORNA 04:17: 00 PM ([place] Update*</td><[facility]td> 06/03/[facility] Health </td><td>06/03/2013</td><td></td> 11:59:00 PM Center) EST Outpatient<td Attender: Cate 05/29/2013 [place] ID="[id number]">[facility] 09:54: 00 AM s ([place] TE PHYSICAL EXAM</td><td>[facility] Jovi FRITZ MD</td><td>[facility] 3 e Health Health 12:20:49 PM s [place]) [place]</td><td>05/29/2013</td><td><maninder [facility] ID="[id number]">Assessment e [use For S.o.a.p. Note Free n Text]</content></td> t [ u s e F o r S . o . a . p . N o t e F r e e T e x t ] A s s e s s m e n t [ u s e F o r S . o . a . p . N o t e F r e e T e x t ] A s s e s s m e n t [ u s e F o r S . o . a . p . N o t e F r e e T e x t ] A s s e s s m e n t [ u s e F o r S . o . a . p . N o t e F r e e T e x t ] A s s e s s m e n t [ u s e F o r S . o . a . p . N o t e F r e e T e x t ] A s s e s s m e n t [ u s e F o r S . o . a . p . N o t e F r e e T e x t ] A s s e s s m e n t [ u s e F o r S . o . a . p . N o t e F r e e T e x t ] A s s e s s m e n t [ u s e F o r S . o . a . p . N o t e F r e e T e x t ] A s s e s s m e n t [ u s e F o r S . o . a . p . N o t e F r e e T e x t ] A s s e s s m e n t [ u s e F o r S . o . a . p . N o t e F r e e T e x t ] A s s e s s m e n t [ u s e F o r S . o . a . p . N o t e F r e e T e x t ] A s s e s s m e n t [ u s e F o r S . o . a . p . N o t e F r e e T e x t ] A s s e s s m e n t [ u s e F o r S . o . a . p . N o t e F r e e T e x t ] A s s e s s m e n t [ u s e F o r S . o . a . p . N o t e F r e e T e x t ] A s s e s s m e n t [ u s e F o r S . o . a . p . N o t e F r e e T e x t ] A s s e s s m e n t [ u s e F o r S . o . a . p . N o t e F r e e T e x t ] A s s e s s m e n t [ u s e F o r S . o . a . p . N o t e F r e e T e x t ] A s s e s s m e n t [ u s e F o r S . o . a . p . N o t e F r e e T e x t ] A s s e s s m e n t [ u s e F o r S . o . a . p . N o t e F r e e T e x t ] A s s e s s m e n t [ u s e F o r S . o . a . p . N o t e F r e e T e x t ] A s s e s s m e n t [ u s e F o r S . o . a . p . N o t e F r e e T e x t ] A s s e s s m e n t [ u s e F o r S . o . a . p . N o t e F r e e T e x t ] A s s e s s m e n t [ u s e F o r S . o . a . p . N o t e F r e e T e x t ] Assessment [use For S.o.a.p. Note Free T ext] Assessment [use For S.o.a.p. Note Free T ext] Assessment [use For S.o.a.p. Note Free T ext] Assessment [use For S.o.a.p. Note Free T ext] Assessment [use For S.o.a.p. Note Free T ext] Assessment [use For S.o.a.p. Note Free T ext] Assessment [use For S.o.a.p. Note Free T ext] Assessment [use For S.o.a.p. Note Free T ext] Assessment [use For S.o.a.p. Note Free T ext] Assessment [use For S.o.a.p. Note Free T ext] Assessment [use For S.o.a.p. Note Free T ext] Assessment [use For S.o.a.p. Note Free T ext] Assessment [use For S.o.a.p. Note Free T ext] Assessment [use For S.o.a.p. Note Free T ext] Assessment [use For S.o.a.p. Note Free T ext] Assessment [use For S.o.a.p. Note Free T ext] Assessment [use For S.o.a.p. Note Free T ext] Assessment [use For S.o.a.p. Note Free T ext] Assessment [use For S.o.a.p. Note Free T ext] Assessment [use For S.o.a.p. Note Free T ext] Assessment [use For S.o.a.p. Note Free T ext] Assessment [use For S.o.a.p. Note Free T ext] Assessment [use For S.o.a.p. Note Free T ext] Medications Medication Brand Start Product Dose Route Administrative Pharmacy [facility] Indications Reaction Description Data Name Date Form Instructions Instructions Source(s) Lisinopril Lisino 10/30/ UNIT 1 active Lisinopr il CLEMENTINE 10 MG Oral pril 2019 ([place] [facility] 10MG 12:00: [place]air Lisinopril Oral 00 AM [place] 10MG Oral Tablet EDT od [facility] Tablet Center) Simvastatin Simvas 10/30/ UNIT 1 active Simvast atin CLEMENTINE 10 MG Oral tatin 2019 ([place] [facility] 10MG 12:00: Yair Simvastatin Oral 00 AM [place] [facility] Simvastatin Simvas 07/11/ UNIT 1 suspend Simvas tatin CLEMENTINE 10 MG Oral tatin 2019 ed ([place] [facility] 10MG 12:00: Yair Simvastatin Oral 00 AM [place] 10MG Oral Tablet EST od [facility]) Lisinopril Lisino 07/11/ UNIT 1 suspend Lisinop ril CLEMENTINE 10 MG Oral pril 2019 ed ([place] Tablet 10MG 12:00: Yair Lisinopril Oral 00 AM Neighbor ho 10MG Oral Tablet EST od [facility]) Hydrocortis Hydroc 05/14/ APPLICAT 1 active Hyd rocortiso CLEMENTINE one 25 ortiso 2019 ION UNIT ne ([facility] MG/ML ne 12:00: Yair Topical 2.5% 00 AM [place] Cream Jet [employer]ic EST od [facility]) one 2.5% Cream External Cream Mupirocin Mupiro 05/14/ APPLICAT 1 active Mupir ocin CLEMENTINE 0.02 MG/MG [place] 2% 2018 ION UNIT (Mo unt Topical Jet Mechanic 12:00: Yair Ointment al 00 AM [place] Mupirocin Ointme EST od [facility] 2% External nt Center) Ointment Lac-Hydrin Lac-Hy 04/05/ APPLICAT 1 complet Jeovanny i-Hydrola CLEMENTINE 12% drin 2019 ION UNIT ed c ([facility] External 12% 12:00: Yair Cream Jet Mechanic 00 AM [facility] al [facility]T [facility]) Clotrimazol Clotri 04/05/ APPLICAT 1 complet Cl otrimazole CLEMENTINE e 10 MG/ML mazole 2018 ION UNIT ed (Mo unt Topical 1% 12:00: Yair Cream Jet Mechanic 00 AM [place] Clotrimazol al EDT od Healt [facility] e 1% [facility] Center) External Cream Simvastatin Simvas 04/05/ UNIT 1 suspend Simvas tatin CLEMENTINE 10 MG Oral tatin 2018 ed ([place] Tablet 10MG 12:00: Yair Simvastatin Oral 00 AM [place] 10MG Oral Tablet EDT od [facility]alt [facility] Tablet Center) Lisinopril Lisino 04/05/ UNIT 1 suspend Lisinop ril CLEMENTINE 10 MG Oral pril 2018 ed ([place] Tablet 10MG 12:00: Yair Lisinopril Oral 00 AM [facility] 10MG Oral Tablet EDT od [facility] Center) Simvastatin Simvas 11/29/ UNIT 1 suspend Simvas tatin CLEMENTINE 10 MG Oral tatin 2018 ed ([place] Tablet 10MG 12:00: Yair Simvastatin Oral 00 AM [place] 10MG Oral Tablet EDT od [facility] Center) Lisinopril Lisino 11/29/ UNIT 1 suspend Lisinop ril CLEMENTINE 10 MG Oral pril 2018 ed ([place] Tablet 10MG 12:00: Yair Lisinopril Oral 00 AM [facility] 10MG Oral Tablet EDT od [facility]) Lisinopril Lisino 10/12/ UNIT 1 suspend Lisinop ril CLEMENTINE 10 MG Oral pril 2018 ed ([place] Tablet 10MG 12:00: Yair Lisinopril Oral 00 AM [facility] 10MG Oral Tablet EDT od [facility]) Lisinopril Lisino 10/12/ UNIT 1 suspend Lisinop ril CLEMENTINE 10 MG Oral pril 2018 ed ([place] Tablet 10MG 12:00: Yair Lisinopril Oral 00 AM [place] 10MG Oral Tablet EDT od [facility]t Center) Hydrocortis Neomyc 10/12/ CAPFUL 1 complet Neom ycin-Cuong CLEMENTINE one 10 in-Cuong 2019 DOSING ed ymyxin-HC ([place] nt MG/ML / ymyxin 12:00: UNIT Yair Neomycin -HC 00 AM [place] 3.5 MG/ML / 3.5-10 EDT od Hea lth Polymyxin B 000-1 Center) 57946 Otic UNT/ML Otic Soluti Solution on Neomycin-Po lymyxin-HC 3.5-42380-7 Otic Solution Pravastatin Pravas 09/26/ UNIT 1 active Pravast atin CLE[place]INE Sodium 10 tatin 2018 Sodium ([place] MG Oral Sodium 12:00: Yair Tablet 10MG 00 AM [place] Pravastatin Oral EDT od Healt h Sodium 10MG Tablet Center ) Oral Tablet Norvasc Norvas 09/03/ UNIT 1 active Norvasc GRE EN[place]AY 10MG Oral c 10MG 2018 ([place] Tablet Oral 12:00: Yair Tablet 00 AM [facility] EST od Health Center) Lisinopril Lisino 09/03/ UNIT 1 suspend Lisinop ril CLEMENTINE 10 MG Oral pril 2018 ed ([place] Tablet 10MG 12:00: Yair Lisinopril Oral 00 AM [place] 10MG Oral Tablet EST od [facility] Tablet Center) Lisinopril Lisino 07/07/ UNIT 1 suspend Lisinop ril CLEMENTINE 10 MG Oral pril 2018 ed ([place] Tablet 10MG 12:00: Yair Lisinopril Oral 00 AM [place] 10MG Oral Tablet EST od [facility]alt [facility] Tablet Center) Lisinopril Lisino 02/12/ UNIT 1 suspend Lisinop ril CLEMENTINE 10 MG Oral pril 2017 ed ([place] Tablet 10MG 12:00: Yair Lisinopril Oral 00 AM [place] 10MG Oral Tablet EDT od [facility]alt [facility] Tablet Center) Norvasc Norvas 10/30/ UNIT 1 suspend Norvasc GR EENWAY 10MG Oral c 10MG 2017 ed ([place] Tablet Oral 12:00: Yair Tablet 00 AM [facility] [place]) Norvasc Norvas 10/30/ UNIT 1 suspend Norvasc GR EENWAY 10MG Oral c 10MG 2017 ed ([place] Tablet Oral 12:00: Yair Tablet 00 AM [facility] [place]) Norvasc 5MG Norvas 09/25/ UNIT 1 suspend Norvas c CLEMENTINE Oral Tablet c 5MG 2017 ed ([place] Oral 12:00: Yair Tablet 00 AM [facility] [place]) Blood Blood 09/23/ UNIT complet Blood GREENWA Y Pressure Pressu 2016 ed Pressure (Moun t Kit re Kit 12:00: Yair 00 AM [facility] [place]) Azelastine Azelas 09/16/ CAPFUL 1 complet Azela riaz CLEMENTINE hydrochlori pan 2017 DOSING ed HCl ([facility] de 0.5 HCl 12:00: UNIT Yair MG/ML 0.05 % 00 AM [facility] Ophthalmic Soluti EDT od Heal Solution on Center) Azelastine HCl 0.05 % Solution Lisinopril Lisino 09/09/ UNIT 1 complet Lisinop ril CLEMENTINE 5 MG Oral pril 5 2016 ed ([place] Tablet MG 12:00: Yair Lisinopril Tablet 00 AM Neighb [facility] 5 MG Tablet EST od [facility] Center) Blood Blood 10/13/ UNIT complet Blood GREENWA Y Pressure Pressu 2015 ed Pressure Kit ( [facility] Kit Kit re Kit 12:00: Yair Kit 00 AM [facility] [place]) Lisinopril Lisino 10/13/ UNIT 1 suspend Lisinop ril CLEMENTINE 5 MG Oral pril 5 2015 ed ([place] Tablet MG 12:00: Yair Lisinopril Tablet 00 AM Neighb [facility] 5 MG Tablet EDT od [facility]) [facility] O[facility] CVS 06/13/ UNIT 1 active [facility] Oyster CLEMENTINE Shell Oyster 2013 Shell ([facility] Calcium-Vit Shell 12:00: Calcium-Vi t Yair D 500-200 Calciu 00 AM D [place] MG-UNIT m-Vit EST od Health TABS D Center) 500-20 0 MG-UNI T TABS Insurance Providers Payer name Policy type Policy ID Covered Covered constitution party's Policy P harini / Coverage constitution party ID relationship to [place] Inf ormation type [place] MED[place]ID [id number] O [id number] [phone] Problems, Conditions, and Diagnoses Code Display Name Description Problem Type Effective Data Sour ce(s) Dates [id number] Disorder of breast Breast Disorders Problem 06/07/2019 [place] ([place] (disorder) 12:00:00 AM [facility]) [id number] Disorder of breast Breast Disorders Problem 06/07/2019 [place] ([place] (disorder) 12:00:00 AM [facility]) [id number] Disorder of breast Breast Disorders Problem 06/07/2019 [place] ([place] (disorder) 12:00:00 AM [facility]) [id number] Disorder of breast Breast Disorders Problem 06/07/2019 [place] ([place] (disorder) 12:00:00 AM [facility]) [id number] Obesity (disorder) Obesity Problem 07/07/2018 [facility] ([place] 12:00:00 AM [facility]) [id number] Simple goiter Nontoxic Goiter Problem 07/07/2018 [facility] ([place] (disorder) 12:00:00 AM [facility]) [id number] Subclinical Hyperthyroidism Problem 07/07/2018 [place] ([place] hyperthyroidism Subclinical 12:00:00 AM [place] (disorder) [facility]) [id number] Obesity (disorder) Obesity Problem 07/07/2018 [facility] ([place] 12:00:00 AM [facility]) [id number] Simple goiter Nontoxic Goiter Problem 07/07/2018 [facility] ([place] (disorder) 12:00:00 AM [facility]) [id number] Subclinical Hyperthyroidism Problem 07/07/2018 [place] ([place] hyperthyroidism Subclinical 12:00:00 AM [place] (disorder) [facility]) 098524998 Obesity (disorder) Obesity Problem 07/07/2018 [facility] ([place] 12:00:00 AM [facility]) [id number] Simple goiter Nontoxic Goiter Problem 07/07/2018 [facility] ([place] (disorder) 12:00:00 AM [facility]) [id number] Subclinical Hyperthyroidism Problem 07/07/2018 [place] ([place] hyperthyroidism Subclinical 12:00:00 AM [place] (disorder) [facility]) [id number] Obesity (disorder) Obesity Problem 07/07/2018 [facility] [facility] ([place] 12:00:00 AM [facility]) [id number] Simple goiter Nontoxic Goiter Problem 07/07/2018 [facility] ([place] (disorder) 12:00:00 AM [facility]) [id number] Subclinical Hyperthyroidism Problem 07/07/2018 [place] ([place] hyperthyroidism Subclinical 12:00:00 AM [place] (disorder) [facility]) [id number] Subclinical Hyperthyroidism Problem 07/07/2018 [place] ([place] hyperthyroidism Subclinical 12:00:00 AM [place] (disorder) [facility]) 914849286 Obesity (disorder) Obesity Problem 07/07/2018 [facility] ([place] 12:00:00 AM [facility]) [id number] Simple goiter Nontoxic Goiter Problem 07/07/2018 [facility] ([place] (disorder) 12:00:00 AM [facility]) 076057133 Subclinical Hyperthyroidism Problem 07/07/2018 [place] ([place] hyperthyroidism Subclinical 12:00:00 AM [place] (disorder) [facility]) [id number] Obesity (disorder) Obesity Problem 07/07/2018 [facility] ([place] 12:00:00 AM [facility]) [id number] Simple goiter Nontoxic Goiter Problem 07/07/2018 [facility] ([place] (disorder) 12:00:00 AM [facility]) [id number] Subclinical Hyperthyroidism Problem 07/07/2018 [place] ([place] hyperthyroidism Subclinical 12:00:00 AM [place] (disorder) [facility]) 295577753 Obesity (disorder) Obesity Problem 07/07/2018 [facility] [facility] ([place] 12:00:00 AM [facility]) [id number] Simple goiter Nontoxic Goiter Problem 07/07/2018 [facility] ([place] (disorder) 12:00:00 AM [facility]) [id number] Subclinical Hyperthyroidism Problem 07/07/2018 [place] ([place] hyperthyroidism Subclinical 12:00:00 AM [place] (disorder) [facility]) [id number] Obesity (disorder) Obesity Problem 07/07/2018 [facility] ([place] 12:00:00 AM [facility]) [id number] Simple goiter Nontoxic Goiter Problem 07/07/2018 [facility] ([place] (disorder) 12:00:00 AM [facility]) [id number] Subclinical Hyperthyroidism Problem 07/07/2018 [place] ([place] hyperthyroidism Subclinical 12:00:00 AM [place] (disorder) [facility]) 727899343 Obesity (disorder) Obesity Problem 07/07/2018 [facility] [facility] ([place] 12:00:00 AM [facility]) [id number] Simple goiter Nontoxic Goiter Problem 07/07/2018 [facility] ([place] (disorder) 12:00:00 AM [facility]) [id number] Subclinical Hyperthyroidism Problem 07/07/2018 [place] ([place] hyperthyroidism Subclinical 12:00:00 AM [place] (disorder) [facility]) 182427870 Obesity (disorder) Obesity Problem 07/07/2018 [place] [facility] ([place] 12:00:00 AM [facility]) 003361835 Simple goiter Nontoxic Goiter Problem 07/07/2018 [facility] ([place] (disorder) 12:00:00 AM [facility]) 311312366 Subclinical Hyperthyroidism Problem 07/07/2018 [place] ([place] hyperthyroidism Subclinical 12:00:00 AM [place] (disorder) [facility]) 833286796 Obesity (disorder) Obesity Problem 07/07/2018 [facility] [facility] ([place] 12:00:00 AM [facility]) 963973711 Simple goiter Nontoxic Goiter Problem 07/07/2018 [facility] ([place] (disorder) 12:00:00 AM [facility]) [id number] Subclinical Hyperthyroidism Problem 07/07/2018 [place] ([place] hyperthyroidism Subclinical 12:00:00 AM [place] (disorder) [facility]) 596685417 Obesity (disorder) Obesity Problem 07/07/2018 [facility] [facility] ([place] 12:00:00 AM [facility]) 043704701 Simple goiter Nontoxic Goiter Problem 07/07/2018 [facility] ([place] (disorder) 12:00:00 AM [facility]) 014889313 Subclinical Hyperthyroidism Problem 07/07/2018 [place] ([place] hyperthyroidism Subclinical 12:00:00 AM [place] (disorder) [facility]) 831830559 Obesity (disorder) Obesity Problem 07/07/2018 [place] ([place] 12:00:00 AM [facility]) 155319211 Obesity (disorder) Obesity Problem 07/07/2018 [facility] [facility] ([place] 12:00:00 AM [facility]) 363901109 Simple goiter Nontoxic Goiter Problem 07/07/2018 [facility] ([place] (disorder) 12:00:00 AM [facility]) 877648403 Subclinical Hyperthyroidism Problem 07/07/2018 [place] ([place] hyperthyroidism Subclinical 12:00:00 AM [place] (disorder) [facility]) 022755948 Obesity (disorder) Obesity Problem 07/07/2018 [place] [facility] ([place] 12:00:00 AM [facility]) [id number] Simple goiter Nontoxic Goiter Problem 07/07/2018 [facility] [facility] ([place] (disorder) 12:00:00 AM [facility]) 543980416 Subclinical Hyperthyroidism Problem 07/07/2018 [place] ([place] hyperthyroidism Subclinical 12:00:00 AM [place] (disorder) [facility]) 549773352 Obesity (disorder) Obesity Problem 07/07/2018 [place] [facility] ([place] 12:00:00 AM [facility]) 542512223 Simple goiter Nontoxic Goiter Problem 07/07/2018 [facility] [facility] ([place] (disorder) 12:00:00 AM [facility]) 140383534 Obesity (disorder) Obesity Problem 07/07/2018 [facility] [facility] ([facility] 12:00:00 AM [facility]) 109088582 Simple goiter Nontoxic Goiter Problem 07/07/2018 [place] [facility] ([place] (disorder) 12:00:00 AM [facility]) [id number] Subclinical Hyperthyroidism Problem 07/07/2018 [place] ([place] hyperthyroidism Subclinical 12:00:00 AM [place] (disorder) [facility]) [id number] Obesity (disorder) Obesity Problem 07/07/2018 [place] [facility] ([place] 12:00:00 AM [facility]) 153128232 Simple goiter Nontoxic Goiter Problem 07/07/2018 [place] [facility] ([place] (disorder) 12:00:00 AM [facility]) [id number] Subclinical Hyperthyroidism Problem 07/07/2018 [place] ([place] hyperthyroidism Subclinical 12:00:00 AM [place] (disorder) [facility]) [id number] Obesity (disorder) Obesity Problem 07/07/2018 [place] [facility] ([place] 12:00:00 AM [facility]) 084233839 Simple goiter Nontoxic Goiter Problem 07/07/2018 [place] [facility] ([place] (disorder) 12:00:00 AM [facility]) [id number] Subclinical Hyperthyroidism Problem 07/07/2018 [place] ([place] hyperthyroidism Subclinical 12:00:00 AM [place] (disorder) [facility]) 215774206 Simple goiter Nontoxic Goiter Problem 07/07/2018 [place] [facility] ([place] (disorder) 12:00:00 AM [facility]) 667945105 Subclinical Hyperthyroidism Problem 07/07/2018 [place] ([place] hyperthyroidism Subclinical 12:00:00 AM [place] (disorder) [facility]) 473799019 Obesity (disorder) Obesity Problem 07/07/2018 [place] [facility] ([place] 12:00:00 AM [facility]) 246672335 Simple goiter Nontoxic Goiter Problem 07/07/2018 [place] [facility] ([place] (disorder) 12:00:00 AM [facility]) [id number] Subclinical Hyperthyroidism Problem 07/07/2018 [place] ([place] hyperthyroidism Subclinical 12:00:00 AM [place] (disorder) [facility]) 116737883 Obesity (disorder) Obesity Problem 07/07/2018 [place] [facility] ([place] 12:00:00 AM [facility]) 358811669 Simple goiter Nontoxic Goiter Problem 07/07/2018 [place] ([place] (disorder) 12:00:00 AM [facility]) 807711359 Subclinical Hyperthyroidism Problem 07/07/2018 [place] ([place] hyperthyroidism Subclinical 12:00:00 AM [place] (disorder) [facility]) 17881893 Hypertensive Hypertension Problem 11/10/2015 [place] ( [place] disorder, systemic (systemic) 12:00:00 AM [place] EDT [facility] 40681213 Hypertensive Hypertension Problem 11/10/2015 [place] ( [place] disorder, systemic (systemic) 12:00:00 AM [place] [facility] EDT [facility] 66971452 Hypertensive Hypertension Problem 11/10/2015 [place] ( [place] disorder, systemic (systemic) 12:00:00 AM [place] arterial EDT [facility]) 13534053 Hypertensive Hypertension Problem 11/10/2015 [place] ( [place] disorder, systemic (systemic) 12:00:00 AM [place] arterial EDT [facility]) 82515499 Hypertensive Hypertension Problem 11/10/2015 [place] ( [place] disorder, systemic (systemic) 12:00:00 AM [place] arterial EDT [facility]) 25097654 Hypertensive Hypertension Problem 11/10/2015 [place] ( [place] disorder, systemic (systemic) 12:00:00 AM [place] arterial EDT [facility]) 09348337 Hypertensive Hypertension Problem 11/10/2015 [place] ( [place] disorder, systemic (systemic) 12:00:00 AM [place] arterial EDT [facility]) [id number] Hypertensive Hypertension Problem 11/10/2015 [place] ( [place] disorder, systemic (systemic) 12:00:00 AM [place] arterial EDT [facility]) 13657889 Hypertensive Hypertension Problem 11/10/2015 [place] ( [place] disorder, systemic (systemic) 12:00:00 AM [place] arterial EDT [facility]) [id number] Hypertensive Hypertension Problem 11/10/2015 [place] ( [place] disorder, systemic (systemic) 12:00:00 AM [place] arterial EDT [facility]) 89920129 Hypertensive Hypertension Problem 11/10/2015 [place] ( [place] disorder, systemic (systemic) 12:00:00 AM [place] EDT [facility]) 50029684 Hypertensive Hypertension Problem 11/10/2015 [place] ( [place] disorder, systemic (systemic) 12:00:00 AM [place] arterial EDT [facility]) 25991911 Hypertensive Hypertension Problem 11/10/2015 [place] ( [place] disorder, systemic (systemic) 12:00:00 AM [place] arterial EDT [facility]) 34484784 Hypertensive Hypertension Problem 11/10/2015 [place] ( [place] disorder, systemic (systemic) 12:00:00 AM [place] arterial EDT [facility]) 79911316 Hypertensive Hypertension Problem 11/10/2015 [place] ( [place] disorder, systemic (systemic) 12:00:00 AM [place] arterial EDT [facility]) 08103188 Hypertensive Hypertension Problem 11/10/2015 [place] ( [place] disorder, systemic (systemic) 12:00:00 AM [place] arterial EDT [facility]) 81629910 Hypertensive Hypertension Problem 11/10/2015 [place] ( [place] disorder, systemic (systemic) 12:00:00 AM [place] arterial EDT [facility]) 89810446 Hypertensive Hypertension Problem 11/10/2015 [place] ( [place] disorder, systemic (systemic) 12:00:00 AM [place] arterial EDT [facility]) [id number] Hypertensive Hypertension Problem 11/10/2015 [place] ( [place] disorder, systemic (systemic) 12:00:00 AM [place] arterial EDT [facility]) 90041347 Hypertensive Hypertension Problem 11/10/2015 [place] ( [place] disorder, systemic (systemic) 12:00:00 AM [place] arterial EDT [facility]) 57219943 Hypertensive Hypertension Problem 11/10/2015 [place] ( [place] disorder, systemic (systemic) 12:00:00 AM [place] arterial EDT [facility]) 90010920 Hypertensive Hypertension Problem 11/10/2015 [place] ( [place] disorder, systemic (systemic) 12:00:00 AM [place] arterial EDT [facility]) 23963481 Hypertensive Hypertension Problem 11/10/2015 [place] ( [place] disorder, systemic (systemic) 12:00:00 AM [place] arterial EDT [facility]) 80490845 Hyperlipidemia Hyperlipidemia Problem 10/24/2015 [place] ([place] (disorder) 12:00:00 AM [facility]) 22500408 Hyperlipidemia Hyperlipidemia Problem 10/24/2015 [place] ([place] (disorder) 12:00:00 AM [facility]) [id number] Hyperlipidemia Hyperlipidemia Problem 10/24/2015 [place] ([place] (disorder) 12:00:00 AM [facility]) 53489292 Hyperlipidemia Hyperlipidemia Problem 10/24/2015 [place] ([place] (disorder) 12:00:00 AM [facility]) 52423667 Hyperlipidemia Hyperlipidemia Problem 10/24/2015 [place] ([place] (disorder) 12:00:00 AM [facility]) 53063034 Hyperlipidemia Hyperlipidemia Problem 10/24/2015 [place] ([place] (disorder) 12:00:00 AM [facility]) 26813698 Hyperlipidemia Hyperlipidemia Problem 10/24/2015 [place] ([place] (disorder) 12:00:00 AM [facility]) 33206382 Hyperlipidemia Hyperlipidemia Problem 10/24/2015 [place] ([place] (disorder) 12:00:00 AM [facility]) 65998439 Hyperlipidemia Hyperlipidemia Problem 10/24/2015 [place] ([place] (disorder) 12:00:00 AM [facility]) 97140794 Hyperlipidemia Hyperlipidemia Problem 10/24/2015 [place] ([place] (disorder) 12:00:00 AM [facility]) 74037139 Hyperlipidemia Hyperlipidemia Problem 10/24/2015 [place] ([place] (disorder) 12:00:00 AM [facility]) 19105735 Hyperlipidemia Hyperlipidemia Problem 10/24/2015 [place] ([place] (disorder) 12:00:00 AM [facility]) 55658219 Hyperlipidemia Hyperlipidemia Problem 10/24/2015 [place] ([place] (disorder) 12:00:00 AM [facility]) Z71.2 Person consulting PERSON CONSULTING Diagnosis 08/13/2019 [facility] for explanation of FOR EXPLANATION OF 01:27:00 PM Medical Center examination or EXAM OR TEST EST test findings FINDINGS Z12.31 Encounter for ENCNTR SCREEN Diagnosis 06/07/2019 [facility] screening MAMMOGRAM FOR 08:53:00 AM Medical Ce nter mammogram for MALIGNANT NEOPLASM EST malignant neoplasm OF BREAST of breast I10 Essential Essential Diagnosis 08/31/2018 [place] (Moun t (primary) (primary) 04:03:53 PM [place] hypertension hypertension EST [facility]) Surgeries/Procedures Procedure Description Date Indications Data Source(s) No prior serious No prior serious 10/31/2019 ANGEL Rodriguez ([place] illness illness 12:00:00 AM [facility]) FT-3 FREE FT-3 FREE 07/11/2019 [place] ([place] TRIDOTHYRONIN TRIDOTHYRONIN 12:00:00 AM [facility]) Sign language or oral Translation by Inhouse 07/11/2019 [place] ([facility] interpretive services, Staff 12:00:00 AM [place] per 15 minutes [facility]) Bmi documented outside BMI OUTSIDE NORMAL 07/11/2019 [place] ([facility] normal parameters, no RANGE - NO F/U PLAN 12:00:00 AM [place] follow-up plan [facility] documented, no reason Health Center) given [id number] 07/11/2019 [facility] ([facility] 12:00:00 AM [facility]) MICROALBUMIN URINE MICROALBUMIN URINE 07/11/2019 [place] ([facility] 12:00:00 AM [facility]) METABOLIC PANEL METABOLIC PANEL 07/11/2019 [place] ([facility] COMPREHE COMPREHE 12:00:00 AM [facility]) TSH-THYROID TSH-THYROID 07/11/2019 [place] ([facility] STIMULATING STIMULATING 12:00:00 AM [facility]) THYROXINE FREE (FT4) THYROXINE FREE (FT4) 07/11/2019 [place] ([facility] 12:00:00 AM [facility]) THYROID B SCAN THYROID B SCAN 07/02/2019 [place] (M ount 12:00:00 AM [facility]) Result: normal Result: normal 06/28/2019 [place] (M ount 12:00:00 AM [facility]) Para 2 Para 2 06/28/2019 [place] ([facility] 12:00:00 AM [facility]) LMP: 2008 LMP: 2009 06/28/2019 [place] ([facility] 12:00:00 AM [facility]) Last pap smear date Last pap smear date 06/28/2019 [place] ([facility] 2014 2014 12:00:00 AM [facility]) History of History of 06/13/2019 [place] ([facility] hypertension hypertension 12:00:00 AM [facility]) Therapeutic, Therapeutic, 06/13/2019 [place] ([facility] Prophylactic,diagnosti Prophylactic,diagnosti 12:00:00 AM [place] c Injection c Injection [facility]) Injection, Kenalog 10 mg 06/13/2019 [place] (Moun t triamcinolone 12:00:00 AM [place] acetonide, not [facility] otherwise specified, [facility]) 10 mg Result: normal Result: normal 06/05/2019 [place] (M ount BI-RADS 2: benign BI-RADS 2: benign 12:00:00 AM [place] findings findings [facility]) Last mammogram date: Last mammogram date: 06/05/2019 [place] ([facility] 201610/21/16201610/21/16 12:00:00 AM [facility]) History of menopause History of menopause 06/05/2019 [place] ([facility] 2009 2009 12:00:00 AM [facility]) 3 3 06/05/2019 [place] ([facility] 12:00:00 AM [facility]) Aborta 1 SAB Aborta 1 SAB 06/05/2019 [place] ([place] nt 12:00:00 AM [facility]) Result: normal NILM, Result: normal NILM, 06/05/2019 [place] ([facility] HPV neg HPV neg 12:00:00 AM [facility]) Para 2 Para 2 06/05/2019 [place] ([facility] 12:00:00 AM [facility]) LMP: 2009 LMP: 200906/05/2019 [place] ([facility] 12:00:00 AM [facility]) Last pap smear date Last pap smear date 06/05/2019 Michelle LOPEZ ([facility] 201511/10/15201511/10/15 12:00:00 AM [facility]) Sign language or oral Translation by Inhouse 05/16/2019 [place] ([facility] interpretive services, Staff 12:00:00 AM [place] per 15 minutes [facility]) Bmi documented outside BMI OUTSIDE NORMAL 05/16/2019 [place] ([facility] normal parameters, no RANGE - NO F/U PLAN 12:00:00 AM [place] follow-up plan [facility] documented, no reason Health Center) given Past medical history Past medical history 04/05/2019 [place] ([facility] colonoscopy completion colonoscopy completion 12:00:00 AM [place]air x 1 year ago (reports x 1 year ago (reports [facility] benign results) benign results) Health Ce nter) No history of surgery No history of surgery 04/05/2019 [place] ([facility] 12:00:00 AM Yair [facility]) URINALYSIS MICROSCOPIC URINALYSIS MICROSCOPIC 04/05/2019 [place] ([facility] 12:00:00 AM [facility]) BLOOD OCCULT BY FECAL BLOOD OCCULT BY FECAL 04/05/2019 [place] ([facility] HEMOGLOBIN HEMOGLOBIN 12:00:00 AM [facility]) [id number] 04/05/2019 [facility] ([facility] 12:00:00 AM [facility]) METABOLIC PANEL METABOLIC PANEL 04/05/2019 [place] ([facility] COMPREHE COMPREHE 12:00:00 AM [facility]) THYROXINE FREE (FT4) THYROXINE FREE (FT4) 04/05/2019 [place] ([facility] 12:00:00 AM [facility]) HEMOGLOBIN A1C HEMOGLOBIN A1C 04/05/2019 [place] ([facility] 12:00:00 AM [facility]) TSH-THYROID TSH-THYROID 04/05/2019 [place] ([facility] STIMULATING STIMULATING 12:00:00 AM [facility]) Bmi documented outside BMI OUTSIDE NORMAL 04/05/2019 [place] ([facility] normal parameters, no RANGE - NO F/U PLAN 12:00:00 AM [place] [facility] documented, no reason Health Center) given VISUAL ACUITY SCREEN VISUAL ACUITY SCREEN 04/05/2019 [place] ([facility] 12:00:00 AM [facility]) Sign language or oral Sign language or Oral 04/05/2019 [place] ([facility] interpretive services, Interpretation per 15 12:00:00 AM [place] per 15 minutes [facility]) MICROALBUMIN URINE MICROALBUMIN URINE 04/05/2019 [facility] ([facility] 12:00:00 AM [facility]) LIPID PANEL LIPID PANEL 04/05/2019 [place] ([facility] 12:00:00 AM [facility]) FT-3 FREE FT-3 FREE 04/05/2019 [place] ([facility] TRIDOTHYRONIN TRIDOTHYRONIN 12:00:00 AM [facility]) Bmi documented outside BMI OUTSIDE NORMAL 11/29/2018 [place] ([facility] normal parameters, no RANGE - NO F/U PLAN 12:00:00 AM [place] follow-up [facility] documented, no reason Health Center) given LIPID PANEL LIPID PANEL 11/29/2018 [place] ([facility] 12:00:00 AM [facility]) TSH-THYROID TSH-THYROID 11/29/2018 [place] ([facility] STIMULATING STIMULATING 12:00:00 AM [facility]) THYROXINE FREE (FT4) THYROXINE FREE (FT4) 11/29/2018 [place] ([facility] 12:00:00 AM [facility]) FT-3 FREE FT-3 FREE 11/29/2018 [place] ([facility] TRIDOTHYRONIN TRIDOTHYRONIN 12:00:00 AM [facility]) No prior serious No prior serious 10/12/2018 [facility] ([facility] illness illness 12:00:00 AM [facility]) Sign language or oral Sign language or Oral 10/12/2018 [place] ([facility] interpretive services, Interpretation per 15 12:00:00 AM [place] per 15 minutes [facility]) Bmi is documented BMI > NORMAL 10/12/2018 [place] ([facility] above normal DOCUMENTED W F/U PLAN 12:00:00 AM [place] parameters and a [facility] [place] follow-up plan is Health [facility]) documented LIPID PANEL LIPID PANEL 09/26/2018 [place] ([facility] 12:00:00 AM [facility]) THYROID B SCAN THYROID B SCAN 09/18/2018 [place] (M ount 12:00:00 AM [facility]) MICROALBUMIN URINE MICROALBUMIN URINE 09/03/2018 [place] ([facility] 12:00:00 AM [facility]) TSH-THYROID TSH-THYROID 09/03/2018 [place] ([facility] STIMULATING STIMULATING 12:00:00 AM [facility]) THYROXINE FREE (FT4) THYROXINE FREE (FT4) 09/03/2018 [place] ([facility] 12:00:00 AM [facility]) [id number] 09/03/2018 [facility] ([facility] 12:00:00 AM [facility]) Bmi documented outside BMI OUTSIDE NORMAL 09/03/2018 [place] ([facility] normal parameters, no RANGE - NO F/U PLAN 12:00:00 AM [place] follow-up plan [facility] documented, no reason Health Center) given METABOLIC PANEL METABOLIC PANEL 09/03/2018 [place] ([facility] COMPREHE COMPREHE 12:00:00 AM [facility]) LIPID PANEL LIPID PANEL 09/03/2018 [place] ([facility] 12:00:00 AM [facility]) FT-3 FREE FT-3 FREE 09/03/2018 [place] ([facility] TRIDOTHYRONIN TRIDOTHYRONIN 12:00:00 AM [facility]) Sign language or oral Sign language or Oral 09/03/2018 [place] ([facility] interpretive services, Interpretation per 15 12:00:00 AM [place] per 15 minutes Minutes [facility]) Bmi documented outside BMI OUTSIDE NORMAL 07/07/2018[place] ([facility] normal parameters, no RANGE - NO F/U PLAN 12:00:00 AM [place] follow-up plan [facility] documented, no reason Health Center) given Taking medication Taking medication 06/27/2018 [facility] ([facility] list reviewed, no list reviewed, no 12:00:00 AM [place] thyroid meds thyroid meds [facility]) Prior surgery Prior surgery 06/27/2018 [place] ([place] [facility] Appendectomy & C/ Appendectomy & C/ 12:00:00 AM [place] Section Section [facility]) THYROID B SCAN THYROID B SCAN 05/29/2018 [place] ([facility]unt 12:00:00 AM [facility]) Recent change in Recent change in 03/26/2018 [place] Y ([facility] medical history medical history 12:00:00 AM [facility]) History of Eyes: History of Eyes: 03/26/2018 [place] Y ([facility] normal normal 12:00:00 AM [facility]) No history of thyroid No history of thyroid 03/26/2018 [place] ([place] [facility] surgery 12:00:00 AM [facility]) No history of No history of 03/26/2018 [place] ([place] prostatectomy prostatectomy 12:00:00 AM [facility]) No history of No history of 03/26/2018 [place] ([facility] appendectomy appendectomy 12:00:00 AM [facility]) No past medical No past medical 03/26/2018 [place] ([facility] history reported history reported 12:00:00 AM [facility]) No history of surgery No history of surgery 03/26/2018 [place] ([facility] 12:00:00 AM [facility]) THYROGLOBULIN ANTIBODY THYROGLOBULIN ANTIBODY 03/26/2018 [place] ([facility] 12:00:00 AM [facility]) OTHER METHODS OTHER METHODS 03/26/2018 [place] ([place] 12:00:00 AM [facility]) LAB CHARGE LAB CHARGE 02/24/2018 [place] ([facility] 12:00:00 AM [facility]) [id number] 02/12/2018 [facility] ([facility] 12:00:00 AM [facility]) LIPID PANEL LIPID PANEL 02/12/2018 [place] ([facility] 12:00:00 AM [facility]) HEMOGLOBIN A1C HEMOGLOBIN A1C 02/12/2018 [place] ([facility] 12:00:00 AM [facility]) METABOLIC PANEL METABOLIC PANEL 02/12/2018 [place] ([facility] COMPREHE COMPREHE 12:00:00 AM [facility]) EKG EKG 02/12/2018 [place] ([facility] 12:00:00 AM [facility]) TSH-THYROID TSH-THYROID 02/12/2018 [place] ([facility] STIMULATING STIMULATING 12:00:00 AM [facility]) THYROXINE FREE (FT4) THYROXINE FREE (FT4) 02/12/2018 [place] ([facility] 12:00:00 AM [facility]) TSH-THYROID TSH-THYROID 12/19/2017 [place] ([facility] STIMULATING STIMULATING 12:00:00 AM [facility]) THYROID STIMULATING THYROID STIMULATING 12/19/2017 [place] ([facility] IMMUNE GLOBULINS (TSI) IMMUNE GLOBULINS (TSI) 12:00:00 AM [facility]) THYROGLOBULIN ANTIBODY THYROGLOBULIN ANTIBODY 12/19/2017 [place] ([facility] 12:00:00 AM [facility]) LIPID PANEL LIPID PANEL 12/19/2017 [place] ([facility] 12:00:00 AM [facility]) Not using Not using 11/30/2017 [place] ([facility] contraception contraception 12:00:00 AM [facility]) No history of No history of 11/30/2017 [place] ([place] [facility] vaginitis vaginitis 12:00:00 AM [facility]) No history of urinary No history of urinary 11/30/2017 [place] ([facility] tract infection tract infection 12:00:00 AM [facility]) No history of No history of 11/30/2017 [place] ([place] Polycystic Ovarian Polycystic Ovarian 12:00:00 AM Henrik non Syndrome (PCOS) Syndrome (PCOS) [facility]) No history of human No history of human 11/30/2017 [facility] papilloma virus papilloma virus 12:00:00 AM [place] infection infection [facility]) No history of No history of 11/30/2017 [place] ([place] dysfunctional uterine dysfunctional uterine 12:00:00 AM [place] bleeding bleeding [facility]) No history of cervical No history of cervical 11/30/2017 [place] ([facility] dysplasia dysplasia 12:00:00 AM [facility]) No history of vaginal No history of vaginal 11/30/2017 [place] ([facility] hysterectomy hysterectomy 12:00:00 AM [facility]) No history of tubal No history of tubal [facility]/30/[facility] ligation ligation 12:00:00 AM [facility]) No history of total No history of total 11/30/2017 [facility] abdominal hysterectomy abdominal hysterectomy 12:00:00 AM [facility]) No history of Loop No history of Loop 11/30/2017 [place] ([facility] electrode excision of electrode excision of 12:00:00 AM [place] cervix (LEEP) cervix (LEEP) [facility]) No history of No history of 11/30/2017 [place] ([place] [facility] cholecystectomy cholecystectomy 12:00:00 AM [facility]) Result: normal Result: normal 11/30/2017 [place] ([place] 12:00:00 AM [facility]) Result: normal Result: normal 11/30/2017 [place] ([facility] [place] 12:00:00 AM [facility]) LMP: 2008 LMP: 2009 11/30/2017 [place] ([facility] 12:00:00 AM [facility]) Last pap smear date Last pap smear date 11/30/2017 Michelle LOPEZ ([facility] 2015 2015 12:00:00 AM [facility]) Last mammogram date: Last mammogram date: 11/30/2017 [place] ([facility] 2016 2016 12:00:00 AM [facility]) History of menopause History of menopause 11/30/2017 [place] ([facility] 12:00:00 AM [facility]) LAB CHARGE LAB CHARGE 09/28/2017 [place] ([facility] 12:00:00 AM [facility]) LAB CHARGE LAB CHARGE 09/18/2017 [place] ([facility] 12:00:00 AM [facility]) HEMOGLOBIN A1C HEMOGLOBIN A1C 09/18/2017 [place] ([facility] 12:00:00 AM [facility]) [id number] 09/18/2017 [facility] ([facility] 12:00:00 AM [facility]) LIPID PANEL LIPID PANEL 09/18/2017 [place] ([facility] 12:00:00 AM [facility]) History of History of 10/07/2016 [place] ([facility] section section 12:00:00 AM [facility]) Para 2 Para 2 10/07/2016 [place] ([facility] 12:00:00 AM [facility]) 2 2 10/07/2016 [place] ([facility] 12:00:00 AM [facility]) Advance healthcare Advance healthcare 09/23/2016 [place] ([facility] directive not on file directive not on file 12:00:00 AM [facility]) History of benign History of benign 11/10/2015 [facility] ([facility] essential hypertension essential hypertension 12:00:00 AM [facility]) History of laparoscopy History of laparoscopy 11/10/2015 [place] ([facility] APPENDECTOMY APPENDECTOMY 12:00:00 AM [facility]) Aborta 0 Aborta 0 11/10/2015 [place] ([facility] 12:00:00 AM [facility]) History of No carotid History of No carotid 10/14/2015 [place] ([facility] bruits bruits 12:00:00 AM [facility]) No prior serious No prior serious 10/14/2015 SANDY LEVELMARÍA Y ([facility] illness illness 12:00:00 AM [facility]) No Surgery No Surgery 08/28/2014 [place] ([place] 12:00:00 AM [facility]) No history of blood No history of blood [facility] transfusion transfusion 12:00:00 AM [facility]) No history of thyroid No history of thyroid 10/02/2013 [place] ([place] disorder disorder 12:00:00 AM [facility]) No history of No history of 10/02/2013 [place] ([place] [facility] hyperlipidemia hyperlipidemia 12:00:00 AM [facility]) No history of HIV No history of HIV 10/02/2013 [facility] ([facility] infection infection 12:00:00 AM [facility]) No history of diabetes No history of diabetes 10/02/2013 [place] ([facility] mellitus mellitus 12:00:00 AM [facility]) No history of No history of 10/02/2013 [place] ([place] hypertension hypertension 12:00:00 AM [facility]) Result: abnormal Result: abnormal 07/09/2013 JIHANIA Y ([facility] 12:00:00 AM [facility]) Surgical / procedural Surgical / procedural 06/10/2013 [place] ([facility] history cs 28 years history cs 28 years 12:00:00 AM [facility]) Results ID Date Data Source [id number] 07/11/2019 11:18:00 AM [facility] ([place] [facility]) Name Value Range Interpretation Description Data Sup porting Code Source(s) Document(s ) Triiodothyronine 3.5 Triiodothyronine [facility] (T3) Free pg/mL (T3), Free ([place] [Mass/volume] in [facility] Serum or Plasma [facility]) ID Date Data Source [id number] 07/11/2019 11:18:00 AM [facility] ([place] [facility]) Name Value Range Interpretation Description Data Source(s ) Supporting Code Document(s ) Microalbumin 4.0 Albumin, [place] [Mass/volume] ug/mL Urine ([place] in Urine [facility]) ID Date Data Source [id number] 07/11/2019 11:18:00 AM [facility] ([place] [facility]) Name Value Range Interpretation Description Data Source(s ) Supporting Code Document(s ) Thyrotropin 0.497 TSH [place] ([place] [Units/volume] uIU/mL [place] in Serum or Neighborhood Plasma by Health Center) Detection limit <= 0.05 mIU/L ID Date Data Source [id number] 07/11/2019 11:18:00 AM EST [place] ([facility] nt [facility]) Name Value Range Interpretation Description Data Source(s ) Supporting Code Document(s ) Thyroxine 1.26 T4,Free(Direct [place] ([place] (T4) free ng/dL ) [place] [Mass/volume Neighborhood ] in Serum Health Center) or Plasma ID Date Data Source [id number] 07/11/2019 11:18:00 AM EST [place] ([facility] nt [facility]) Name Value Range Interpretation Description Data Source(s ) Supporting Code Document(s ) Calcium 9.5 Calcium [place] ([place] [Mass/volum mg/dL Yair e] in Serum Neighborhood or Plasma [facility]) Protein 7.4 g/dL Protein, Total [place] ([place] [Mass/volum Yair e] in Serum Neighborhood or Plasma [facility]) Urea 20 mg/dL BUN [place] ([place] nitrogen [place] [Mass/volum Neighborhood e] in Serum [facility]) or Plasma Glucose 88 mg/dL Glucose [place] ([place] [Mass/volum Yair e] in Serum Neighborhood or Plasma [facility]) Albumin 4.5 g/dL Albumin [place] ([place] [Mass/volum Yair e] in Serum Neighborhood or Plasma [facility]) Note: Effective Marcin palmer 2019 Albumin reference interval will be changing to: Age Male Female 0 - 7 days 3.6 - 4.9 3.6 - 4.9 8 - 30 days 3.4 - 4.7 3.4 - 4.7 1 - 6 month 3.7 - 4.8 3.7 - 4.8 7 months - 2 years 3.9 - 5.0 3.9 - 5.0 3 - 5 years 4.0 - 5.0 4.0 - 5.0 6 - 12 years 4.1 - 5.0 4.0 - 5.0 13 - 30 years 4.1 - 5.2 3.9 - 5.0 31 - 50 years 4.0 - 5.0 3.8 - 4.8 51 - 60 years 3.8 - 4.9 3.8 - 4.9 61 - 70 years 3.8 - 4.8 3.8 - 4.8 71 - 80 years 3.7 - 4.7 3.7 - 4.7 81 - 89 years 3.6 - 4.6 3.6 - 4.6 >89 years 3.5 - 4.6 3.5 - 4.6 Alkaline phosphatase 98 IU/L Alkaline [place] ([place] [Enzymatic Phosphatase Yair activity/volume] in [facility] or [facility]) Bilirubin.total 0.5 mg/dL Bilirubin, Total [place] ([place] [Mass/volume] in Serum [place] or [facility]) Sodium [Moles/volume] 139 mmol/L Sodium [place] ([place] in Serum or Plasma [facility]) Potassium 4.3 mmol/L Potassium [place] ([place] [Moles/volume] in Serum [place] or [facility]) Aspartate 23 IU/L AST (SGOT) [place] ([place] aminotransferase [place] [Enzymatic Neighborhood activity/volume] in [facility] ter) Serum or Plasma Alanine 20 IU/L ALT (SGPT) [place] ([facility] aminotransferase [place] [Enzymatic Neighborhood activity/volume] in [facility] ter) Serum or Plasma Creatinine 0.62 mg/dL Creatinine [place] ([place] [Mass/volume] in Serum [place] or [facility]) Chloride [Moles/volume] 99 mmol/L Chloride [place] ([facility] in Serum or Plasma [facility]) Globulin [Mass/volume] 2.9 g/dL Globulin, Total G [place] ([place] in Serum by calculation [facility]) Urea 32 Above high BUN/Creatinine [place] ([place] t nitrogen/Creatinine normal Ratio [place]air [Mass Ratio] in Serum [facility]) Carbon dioxide, total 25 mmol/L Carbon Dioxide, GR [place] ([facility] [Moles/volume] in Serum Total [facility]) eGFR If Africn Am 113 eGFR If Africn Am [place] ([facility] mL/min/1.73 [facility]) Albumin/Globulin [Mass 1.6 A/G Ratio [place] ([place] Ratio] in Serum or [facility]) eGFR If NonAfricn Am 98 eGFR If NonAfricn G [place] ([facility] mL/min/1.73 Am [facility]) ID Date Data Source [id number] 05/09/2019 10:23:00 AM EST [place] ([facility]) Name Value Range Interpretation Description Data Sup porting Code Source(s) Document(s ) Triiodothyronine 3.3 Triiodothyronine [place] (T3) Free pg/mL (T3), Free ([place] [Mass/volume] in [facility] Serum or [facility]) ID Date Data Source [id number] 05/09/2019 10:23:00 AM EST [place] ([facility]) Name Value Range Interpretation Description Data Source(s ) Supporting Code Document(s ) Microalbumin 5.9 Albumin, [place] [Mass/volume] ug/mL Urine ([place] in Urine [facility]) ID Date Data Source [id number] 05/09/2019 10:23:00 AM EST [place] ([facility]) Name Value Range Interpretation Description Data Source(s ) Supporting Code Document(s ) Thyrotropin 0.462 TSH [place] ([facility] [Units/volume] uIU/mL [place] in Serum or [facility] Plasma [facility]) Detection limit <= 0.05 mIU/L ID Date Data Source [id number] 05/09/2019 10:23:00 AM EST [place] ([facility]) Name Value Range Interpretation Description Data Source(s ) Supporting Code Document(s ) Thyroxine 1.24 T4,Free(Direct [place] ([place] (T4) free ng/dL ) [place] [Mass/volume Neighborhood ] in [facility]) or Plasma ID Date Data Source [id number] 05/09/2019 10:23:00 AM EST [place] ([facility]) Name Value Range Interpretation Description Data Source(s ) Supporting Code Document(s ) Hemoglobin 5.3 % Hemoglobin A1c [place] ([place] A1c/Hemoglobi Yair n.total in [facility] Blood [facility]) Note: Prediabetes: 5.7 - 6.4 Diabetes: >6.4 Glycemic control for adults with diabetes: <7.0 ID Date Data Source [id number] 05/09/2019 10:23:00 AM EST [place] ([facility]) Name Value Range Interpretation Description Data Source(s ) Supporting Code Document(s ) Triglyceride 60 Triglycerides [place] [Mass/volume] mg/dL ([place] in Serum or [facility] Plasma [facility]) Cholesterol in 67 HDL Cholesterol [place] HDL mg/dL ([place] [Mass/volume] Neighborhood in Serum or [facility]) Plasma Cholesterol 172 Cholesterol, [place] [Mass/volume] mg/dL Total ([place] in Serum or [facility] Plasma [facility]) Laboratory N/A Comment: [place] comment [Text] ([place] in Report [facility]) Cholesterol in 93 LDL Cholesterol [place] LDL mg/dL Calc ([place] [Mass/volume] Neighborhood in Serum or [facility]) Plasma by calculation Cholesterol in 1.4 LDL/HDL Ratio [place] LDL/Cholestero ratio ([place] l in HDL [Mass Neighborhood Ratio] in Health [place]) Serum or Plasma Note: LDL/HDL Ratio Men Women 1/2 Avg.Risk 1.0 1.5 Avg.Risk 3.6 3.2 2X Avg.Risk 6.2 5.0 3X Avg.Risk 8.0 6.1 Cholesterol in VLDL 12 mg/dL VLDL Cholesterol Patrick [place] ([place] [Mass/volume] in Serum or [facility] Plasma by calculation Center) ID Date Data Source [id number] 05/09/2019 10:23:00 AM EST [place] ([facility]) Name Value Range Interpretation Description Data Sup porting Code Source(s) Document(s ) Glucose 78 Glucose [place] [Mass/volume] in mg/dL ([place] Serum or [facility]) Calcium 9.5 Calcium [place] [Mass/volume] in mg/dL ([place] Serum or [facility]) Urea nitrogen 17 BUN [place] [Mass/volume] in mg/dL ([place] Serum or [facility]) Protein 7.6 Protein, [place] [Mass/volume] in g/dL Total ([place] Serum or [facility]) Alkaline 95 IU/L Alkaline [place] phosphatase Phosphatase ([place] [Enzymatic Neighborhood activity/volume] [facility] in Serum or Plasma Center) Bilirubin.total 0.6 Bilirubin, [place] [Mass/volume] in mg/dL Total ([place] Serum or [facility]) Albumin 4.7 Albumin [place] [Mass/volume] in g/dL ([place] Serum or [facility]) Aspartate 19 IU/L AST (SGOT) [place] aminotransferase ([place] [Enzymatic Neighborhood activity/volume] Health in Serum or Plasma [place]) Sodium 139 Sodium [place] [Moles/volume] in mmol/L ([facility] Serum or Plasma [facility]) Potassium 4.2 Potassium [place] [Moles/volume] in mmol/L ([facility] Serum or [facility]) Chloride 100 Chloride [place] [Moles/volume] in mmol/L ([facility] Serum or Plasma [facility]) Urea 27 BUN/Creatinin [place] nitrogen/Creatinin e Ratio ([facility] on e [Mass Ratio] in [facility] Serum or [facility]) Alanine 16 IU/L ALT (SGPT) [place] aminotransferase ([place] [Enzymatic [facility] activity/volume] Health in Serum or Plasma [place]) Carbon dioxide, 23 Carbon [place] total mmol/L Dioxide, ([place] [Moles/volume] in Total [facility]) Creatinine 0.63 Creatinine [place] [Mass/volume] in mg/dL ([place] Serum or [facility]) Globulin 2.9 Globulin, [place] [Mass/volume] in g/dL Total ([place] Serum by [facility]) Albumin/Globulin 1.6 A/G Ratio [place] [Mass Ratio] in ([place] Serum or [facility]) eGFR If NonAfricn 97 eGFR If [place] Am mL/min/ NonAfricn Am ([address]) eGFR If Africn Am 112 eGFR If [place] mL/min/ Africn Am ([address]) ID Date Data Source [id number] 12/13/2018 08:52:00 AM EDT [place] ([facility]) Name Value Range Interpretation Description Data Sup porting Code Source(s) Document(s ) Triiodothyronine 3.1 Triiodothyronine [facility] AY (T3) Free pg/mL (T3), Free ([place] [Mass/volume] in [facility]) ID Date Data Source [id number] 12/13/2018 08:52:00 AM EDT [place] ([facility]) Name Value Range Interpretation Description Data Source(s ) Supporting Code Document(s ) Thyrotropin 0.679 TSH [place] ([facility] [Units/volume] uIU/mL [place] in Serum or [facility] Plasma by Health Center) Detection limit <= 0.05 mIU/L ID Date Data Source [id number] 12/13/2018 08:52:00 AM EDT [place] ([facility]) Name Value Range Interpretation Description Data Source(s ) Supporting Code Document(s ) Thyroxine 1.13 T4,Free(Direct [place] ([place] (T4) free ng/dL ) [place] [Mass/volume Neighborhood ] in [facility]) or Plasma ID Date Data Source [id number] 12/13/2018 08:52:00 AM EDT [place] ([facility]) Name Value Range Interpretation Description Data Source(s ) Supporting Code Document(s ) Laboratory N/A Comment: [place] comment [Text] ([place] in Report [facility] Narrative [facility]) Cholesterol in 53 HDL Cholesterol [place] HDL mg/dL ([place] [Mass/volume] [facility] in Serum or Health Center) Plasma Triglyceride 59 Triglycerides [place] [Mass/volume] mg/dL ([place] in Serum or [facility] Plasma [facility]) Cholesterol 188 Cholesterol, [place] [Mass/volume] mg/dL Total ([place] in Serum or [facility] Plasma [facility]) Cholesterol in 123 Above high LDL Cholesterol [place] LDL mg/dL normal Calc ([place] [Mass/volume] [facility] in Serum or Health Center) Plasma by calculation Cholesterol in 12 VLDL [place] VLDL mg/dL Cholesterol Patrick ([place] [Mass/volume] [facility] in Serum or Health [place]) Plasma by calculation Cholesterol in 2.3 LDL/HDL Ratio [place] LDL/Cholestero ratio ([place] in HDL [Mass Neighborhood Ratio] in Health [place]) Serum or Plasma Note: LDL/HDL Ratio Men Women 1/2 Avg.Risk 1.0 1.5 Avg.Risk 3.6 3.2 2X Avg.Risk 6.2 5.0 3X Avg.Risk 8.0 6.1 ID Date Data Source [id number] 09/08/2018 09:55:00 AM EST [place] ([facility]) Name Value Range Interpretation Description Data Sup porting Code Source(s) Document(s ) Triiodothyronine 3.2 Triiodothyronine [facility] AY (T3) Free pg/mL (T3), Free ([place] [Mass/volume] in [facility] Serum or Plasma Health [place]) ID Date Data Source [id number] 09/08/2018 09:55:00 AM EST [place] ([facility]) Name Value Range Interpretation Description Data Source(s ) Supporting Code Document(s ) Microalbumin <3.0 Albumin, [place] [Mass/volume] ug/mL Urine ([place] in Urine [facility]) ID Date Data Source [id number] 09/08/2018 09:55:00 AM EST [place] ([facility]) Name Value Range Interpretation Description Data Source(s ) Supporting Code Document(s ) Thyrotropin 0.561 TSH [place] ([facility] [Units/volume] uIU/mL [place] in Serum or Neighborhood Plasma by [facility]) Detection limit <= 0.05 mIU/L ID Date Data Source [id number] 09/08/2018 09:55:00 AM EST [place] ([facility]) Name Value Range Interpretation Description Data Source(s ) Supporting Code Document(s ) Thyroxine 1.16 T4,Free(Direct [place] ([place] (T4) free ng/dL ) [place] [Mass/volume Neighborhood ] in [facility]) or Plasma ID Date Data Source [id number] 09/08/2018 09:55:00 AM EST [place] ([facility]) Name Value Range Interpretation Description Data Source(s ) Supporting Code Document(s ) Triglyceride 77 Triglycerides [place] [Mass/volume] mg/dL ([place] in Serum or [facility] Plasma [facility]) Cholesterol in 65 HDL Cholesterol [place] HDL mg/dL ([place] [Mass/volume] [facility] in Serum or [facility]) Plasma Cholesterol 205 Above high Cholesterol, [place] [Mass/volume] mg/dL normal Total ([place] in Serum or [facility] Plasma [facility]) Cholesterol in 15 VLDL [place] VLDL mg/dL Cholesterol Patrick ([place] [Mass/volume] [facility] in Serum or Health [place]) Plasma by calculation Laboratory N/A Comment: [place] comment [Text] (Nimisha Mazariegos in Report [facility]) Cholesterol in 125 Above high LDL Cholesterol [place] LDL mg/dL normal Calc ([place] [Mass/volume] [facility] in Serum or Health Center) Plasma by calculation Cholesterol in 1.9 LDL/HDL Ratio [place] LDL/Cholestero ratio ([place] in HDL [Mass Neighborhood Ratio] in Health [place]) Serum or Plasma Note: LDL/HDL Ratio Men Women 1/2 Avg.Risk 1.0 1.5 Avg.Risk 3.6 3.2 2X Avg.Risk 6.2 5.0 3X Avg.Risk 8.0 6.1 ID Date Data Source [id number] 09/08/2018 09:55:00 AM EST [place] ([facility]) Name Value Range Interpretation Description Data Sup porting Code Source(s) Document(s ) Urea nitrogen 26 BUN [place] [Mass/volume] in mg/dL ([facility]) Calcium 9.1 Calcium [place] [Mass/volume] in mg/dL ([facility]) Glucose 86 Glucose [place] [Mass/volume] in mg/dL ([facility]) Protein 7.3 Protein, [place] [Mass/volume] in g/dL Total ([facility]) Albumin 4.5 Albumin [place] [Mass/volume] in g/dL ([facility]) Alkaline 92 IU/L Alkaline [place] phosphatase Phosphatase ([place] [Enzymatic [facility] activity/volume] [facility] in [facility] or [facility]) Bilirubin.total 0.4 Bilirubin, [place] [Mass/volume] in mg/dL Total ([facility]) Potassium 4.5 Potassium [place] [Moles/volume] in mmol/L ([facility]) Aspartate 22 IU/L AST (SGOT) [place] aminotransferase ([place] [Enzymatic [facility] activity/volume] [facility] in [facility] or [facility]) Sodium 139 Sodium [place] [Moles/volume] in mmol/L ([facility]) Chloride 103 Chloride [place] [Moles/volume] in mmol/L ([facility]) Alanine 18 IU/L ALT (SGPT) [place] aminotransferase ([place] [Enzymatic [facility] activity/volume] [facility] in [facility] or [facility]) Globulin 2.8 Globulin, [place] [Mass/volume] in g/dL Total ([facility] by [facility]) Urea 44 Above high BUN/Creatinin [place] nitrogen/Creatinin normal e Ratio ([facility] on e [Mass Ratio] in [facility]) Carbon dioxide, 23 Carbon [place] total mmol/L Dioxide, ([place] [Moles/volume] in Total [facility] Serum or [facility]) Creatinine 0.59 Creatinine [place] [Mass/volume] in mg/dL ([place] Serum or [facility]) eGFR If NonAfricn 100 eGFR If [place] Am mL/min/ NonAfricn Am ([address]) Albumin/Globulin 1.6 A/G Ratio [place] [Mass Ratio] in ([place] Serum or [facility]) eGFR If Africn Am 115 eGFR If [place] mL/min/ Africn Am ([address]) ID Date Data Source [id number] 06/27/2018 09:49:00 AM EST [place] ([facility]) Name Value Range Interpretation Description Data Source(s ) Supporting Code Document(s ) Thyrotropin 0.339 Below low normal TSH [place] (M ount [Units/volume] uIU/mL [place] in Serum or [facility] Plasma [facility]) Detection limit <= 0.05 mIU/L ID Date Data Source [id number] 06/27/2018 09:49:00 AM EST [place] ([facility]) Name Value Range Interpretation Description Data Source(s ) Supporting Code Document(s ) Thyroxine 1.28 T4,Free(Direct [place] ([place] (T4) free ng/dL ) [place] [Mass/volume Neighborhood ] in [facility]) or Plasma ID Date Data Source [id number] 06/27/2018 09:49:00 AM EST [place] ([facility]) Name Value Range Interpretation Description Data Sup porting Code Source(s) Document(s ) Triiodothyronine 2.9 Triiodothyronine [facility] AY (T3) Free pg/mL (T3), Free ([place] [Mass/volume] in [facility] Serum or Plasma [facility]) ID Date Data Source [id number] 02/24/2018 09:32:00 AM EDT [place] ([facility]) Name Value Range Interpretation Description Data Source(s ) Supporting Code Document(s ) Thyrotropin 0.317 Below low normal TSH [place] ([place] o[place] [Units/volume] uIU/mL [place] in Serum or [facility] Plasma by Health Center) Detection limit <= 0.05 mIU/L ID Date Data Source [id number] 02/24/2018 09:32:00 AM EDT [place] ([facility]) Name Value Range Interpretation Description Data Source(s ) Supporting Code Document(s ) Thyroxine 1.23 T4,Free(Direct [place] ([place] (T4) free ng/dL ) [place] [Mass/volume Neighborhood ] in [facility]) or Plasma ID Date Data Source [id number] 02/24/2018 09:32:00 AM EDT [place] ([facility]) Name Value Range Interpretation Description Data Source(s ) Supporting Code Document(s ) Hemoglobin 5.3 % Hemoglobin A1c [place] ([facility] A1c/Hemoglobi Yair n.total in [facility]) Note: Prediabetes: 5.7 - 6.4 Diabetes: >6.4 Glycemic control for adults with diabetes: <7.0 ID Date Data Source [id number] 02/24/2018 09:32:00 AM EDT [place] ([facility]) Name Value Range Interpretation Description Data Source(s ) Supporting Code Document(s ) Cholesterol 199 Cholesterol, [place] [Mass/volume] mg/dL Total (Nimisha Mazariegos in Serum or [facility] Plasma [facility]) Laboratory N/A Comment: [place] comment [Text] (Nimisha Mazariegos in Report [facility]) Cholesterol in 68 mg/dL HDL [place] HDL Cholesterol ([place] [Mass/volume] Neighborhood in Serum or Health Center) Plasma Cholesterol in 1.8 LDL/HDL Ratio [place] LDL/Cholestero ratio (Nimisha Mazariegos l in HDL [Mass Neighborhood Ratio] in Health [place]) Serum or Plasma Note: LDL/HDL Ratio Men Women 1/2 Avg.Risk 1.0 1.5 Avg.Risk 3.6 3.2 2X Avg.Risk 6.2 5.0 3X Avg.Risk 8.0 6.1 Triglyceride 60 mg/dL Triglycerides [place] ([place] [facility] [Mass/volume] in [place] Serum or Plasma [facility]) Cholesterol in VLDL 12 mg/dL VLDL Cholesterol Patrick [place] ([place] [Mass/volume] in [place] Serum or Plasma by [facility]) Cholesterol in LDL 119 mg/dL Above high LDL Cholesterol Calc [place] ([place] [Mass/volume] in normal [place] Serum or Plasma by [facility]) ID Date Data Source [id number] 02/24/2018 09:32:00 AM EDT [place] ([facility]) Name Value Range Interpretation Description Data Sup porting Code Source(s) Document(s ) Calcium 9.1 Calcium [place] [Mass/volume] in mg/dL ([facility] or [facility]) Glucose 89 Glucose [place] [Mass/volume] in mg/dL ([facility]) Urea nitrogen 30 Above high BUN [place] [Mass/volume] in mg/dL normal ([facility]) Bilirubin.total 0.5 Bilirubin, [place] [Mass/volume] in mg/dL Total ([facility]) Alkaline 95 IU/L Alkaline [place] phosphatase Phosphatase ([place] [Enzymatic [facility] activity/volume] [facility] in Serum or [facility]) Albumin 4.6 Albumin [place] [Mass/volume] in g/dL ([facility]) Protein 7.6 Protein, [place] [Mass/volume] in g/dL Total ([facility]) Aspartate 22 IU/L AST (SGOT) [place] aminotransferase ([place] [Enzymatic [facility] activity/volume] [facility] in Serum or [facility]) Sodium 140 Sodium [place] [Moles/volume] in mmol/L ([facility]) Potassium 4.1 Potassium [place] [Moles/volume] in mmol/L ([facility]) Alanine 20 IU/L ALT (SGPT) [place] aminotransferase ([place] [Enzymatic Neighborhood activity/volume] [facility] in Serum or [facility]) Chloride 101 Chloride [place] [Moles/volume] in mmol/L ([facility]) Creatinine 0.63 Creatinine [place] [Mass/volume] in mg/dL ([facility]) Carbon dioxide, 21 Carbon [place] total mmol/L Dioxide, ([place] [Moles/volume] in Total [facility]) Albumin/Globulin 1.5 A/G Ratio [place] [Mass Ratio] in ([facility]) eGFR If NonAfricn 98 eGFR If [place] Am mL/min/ NonAfricn Am ([address]) Urea 48 Above high BUN/Creatinin [place] nitrogen/Creatinin normal e Ratio ([facility] e [Mass Ratio] in [facility] Serum or Plasma [facility]) Globulin 3.0 Globulin, [place] [Mass/volume] in g/dL Total ([place] Serum by [facility]) eGFR If Africn Am 113 eGFR If [place] mL/min/ Africn Am ([address]) ID Date Data Source [id number] 12/16/2017 09:01:00 AM EDT [place] ([facility]) Name Value Range Interpretation Description Data Source(s ) Supporting Code Document(s ) Thyroperoxidase 17 Thyroid [place] Ab [Units/volume] IU/mL Peroxidase ([facility] in Serum or (TPO) Ab [facility]) ID Date Data Source [id number] 12/16[facility]2017 [facility] Name Value Range Interpretation Description Data Source(s ) Supporting Code Document(s ) Thyroglobulin <1.0 Thyroglobulin [place] Ab IU/mL Antibody ([place] [Units/volume] [facility] in Serum or [facility]) Plasma Note: Thyroglobulin Antibody measured by [employer] Methodology ID Date Data Source [id number] 12/16/2017 [facility]:01[facility] Name Value Range Interpretation Description Data Sup porting Code Source(s) Document(s ) Thyroid Stim <0.10 Thyroid Stim [place] Immunoglobulin IU/L Immunoglobulin ([facility]) ID Date Data Source [id number] 12/16/2017 09:01:00 AM EDT [place] ([facility]) Name Value Range Interpretation Description Data Source(s ) Supporting Code Document(s ) Thyrotropin 0.402 Below low normal TSH [place] (M ount [Units/volume] uIU/mL [place] in Serum or [facility] Plasma [facility]) Detection limit <= 0.05 mIU/L ID Date Data Source [id number] 12/16/2017 09:01:[facility] Name Value Range Interpretation Description Data Source(s ) Supporting Code Document(s ) Laboratory N/A Comment: [place] comment [Text] ([place] in [facility]) Triglyceride 55 Triglycerides [place] [Mass/volume] mg/dL ([place] in Serum or [facility] Plasma [facility] [place]) Cholesterol 186 Cholesterol, [place] [Mass/volume] mg/dL Total ([place] in [facility] or [facility]) Cholesterol in 64 HDL Cholesterol [place] HDL mg/dL ([place] [Mass/volume] [facility] in [facility] or [facility]) Plasma Cholesterol in 111 Above high LDL Cholesterol [place] LDL mg/dL normal Calc ([place] [Mass/volume] [facility] in Serum or [facility] [place]) Plasma by calculation Cholesterol in 11 VLDL [place] VLDL mg/dL Cholesterol Patrick ([place] [Mass/volume] [facility] in [facility] or [facility]) Plasma by calculation ID Date Data Source [id number] 09/28/2017 09:11:00 AM EDT [place] ([facility]) Name Value Range Interpretation Description Data Sup porting Code Source(s) Document(s ) Triiodothyronine 3.0 Triiodothyron [place] (T3) Free pg/mL ine,Free,Seru ([place] [Mass/volume] in [facility] Serum or [facility]) ID Date Data Source [id number] 09/28/2017 09:11:00 AM EDT [place] ([facility]) Name Value Range Interpretation Description Data Source(s ) Supporting Code Document(s ) Thyrotropin 0.298 Below low normal TSH [place] (M ount [Units/volume] uIU/mL [place] in Serum or [facility] Plasma [facility]) Detection limit <= 0.05 mIU/L ID Date Data Source [id number] 09/28/2017 09:11:00 AM EDT [place] ([facility]) Name Value Range Interpretation Description Data Source(s ) Supporting Code Document(s ) Thyroxine 1.27 T4,Free(Direct [place] ([place] (T4) free ng/dL ) [place] [Mass/volume [facility] ] in [facility]) or Plasma ID Date Data Source [id number] 09/19/2017 08:43:00 AM EDT [place] ([facility]) Name Value Range Interpretation Description Data Source(s ) Supporting Code Document(s ) Thyrotropin 0.333 Below low normal TSH [place] ([place] ount [Units/volume] uIU/mL [place] in Serum or Neighborhood Plasma by [facility]) Detection limit <= 0.05 mIU/L ID Date Data Source [id number] 09/19/2017 08:43:00 AM EDT [place] ([facility]) Name Value Range Interpretation Description Data Source(s ) Supporting Code Document(s ) Hemoglobin 5.2 % Hemoglobin A1c [place] ([place] t A1c/Hemoglobi Yair n.total in [facility] Blood [facility]) Note: Pre-diabetes: 5.7 - 6.4 Diabetes: >6.4 Glycemic control for adults with diabetes: <7.0 ID Date Data Source [id number] 09/19/2017 08:43:00 AM EDT [place] ([facility]) Name Value Range Interpretation Description Data Source(s ) Supporting Code Document(s ) Cholesterol in 66 HDL Cholesterol [place] HDL mg/dL (Nimisha Mazariegos [Mass/volume] Neighborhood in Serum or Health Center) Plasma Triglyceride 51 Triglycerides [place] [Mass/volume] mg/dL (Nimisha Mazariegos in Serum or [facility] Plasma [facility]) Laboratory N/A Comment: [place] comment [Text] (Nimisha Mazariegos in Report [facility]) Cholesterol 205 Above high Cholesterol, [place] [Mass/volume] mg/dL normal Total (Nimisha Mazariegos in Serum or [facility] Plasma [facility]) Cholesterol in 2.0 LDL/HDL Ratio [place] LDL/Cholestero ratio_u (Nimisha Mazariegos l in HDL [Mass nits Neighborhood Ratio] in Health Center) Serum or Plasma Note: LDL/HDL Ratio Men Women 1/2 Avg.Risk 1.0 1.5 Avg.Risk 3.6 3.2 2X Avg.Risk 6.2 5.0 3X Avg.Risk 8.0 6.1 Cholesterol in LDL 129 mg/dL Above high LDL Cholesterol [place] ([place] [Mass/volume] in normal Calc [facility] Serum or Plasma by Health Cent er) calculation Cholesterol in VLDL 10 mg/dL VLDL Cholesterol [place] ([facility] [Mass/volume] in [place] [facility] or[facility] Serum or Plasma by Health Cent er) calculation ID Date Data Source [id number] 09/19/2017 08:43:00 AM EDT [place] ([facility]) Name Value Range Interpretation Description Data Sup porting Code Source(s) Document(s ) Calcium 9.6 Calcium, [place] [Mass/volume] in mg/dL Serum ([facility] or [facility]) Glucose 86 Glucose, [place] [Mass/volume] in mg/dL Serum ([facility] or [facility]) Urea nitrogen 24 BUN [place] [Mass/volume] in mg/dL ([facility] or [facility]) Bilirubin.total 0.5 Bilirubin, [place] [Mass/volume] in mg/dL Total ([facility] or [facility]) Alkaline 92 IU/L Alkaline [place] phosphatase Phosphatase, ([place] [Enzymatic S [facility] activity/volume] Health in Serum or Plasma Center) Protein 7.5 Protein, [place] [Mass/volume] in g/dL Total, Serum ([facility] or [facility]) Albumin 4.6 Albumin, [place] [Mass/volume] in g/dL Serum ([facility] or [facility]) Sodium 140 Sodium, Serum [place] [Moles/volume] in mmol/L ([facility] or [facility]) Aspartate 22 IU/L AST (SGOT) [place] aminotransferase ([place] [Enzymatic [facility] activity/volume] [facility] in Serum or Plasma [place]) Potassium 4.4 Potassium, [place] [Moles/volume] in mmol/L Serum ([facility] or [facility]) Chloride 102 Chloride, [place] [Moles/volume] in mmol/L Serum ([facility] Serum or [facility]) Carbon dioxide, 25 Carbon [place] total mmol/L Dioxide, ([place] [Moles/volume] in Total [facility] Serum or [facility]) Creatinine 0.61 Creatinine, [place] [Mass/volume] in mg/dL Serum ([facility] or [facility]) Alanine 18 IU/L ALT (SGPT) [place] aminotransferase ([place] [Enzymatic [facility] activity/volume] Health in Serum or Plasma [place]) Globulin 2.9 Globulin, [place] [Mass/volume] in g/dL Total ([place] Serum by [facility]) Urea 39 Above high BUN/Creatinin [place] nitrogen/Creatinin normal e Ratio ([facility] on e [Mass Ratio] in [facility] Serum or [facility]) Albumin/Globulin 1.6 A/G Ratio [place] [Mass Ratio] in ([place] Serum or Plasma [facility]) eGFR If Africn Am 115 eGFR If [place] mL/min/ Africn Am ([address]) eGFR If NonAfricn 100 eGFR If [place] Am mL/min/ NonAfricn Am ([address]) Procedure Social History Code Duration Value Status Description Data Source(s ) Smoking 10/31/2019 Never smoked completed Never smoked [place] ( [facility] 02:07:19 PM tobacco (finding) tobacco (finding) [facility]) Smoking 07/11/2019 smoking status completed CLEMENTINE ( [facility] 02:31:18 PM [facility]) Smoking 05/16/2019 smoking status completed CLEMENTINE ( [facility] 09:55:05 AM [facility]) Smoking 04/05/2019 smoking status completed CLEMENTINE ( [facility] 02:41:14 PM [facility]) Smoking 10/12/2018 Never smoked completed Never smoked CLEMENTINE ( [facility] 04:30:40 PM tobacco (finding) tobacco (finding) [facility]) Smoking 09/03/2018 smoking status completed CLEMENTINE ( [facility] 03:34:10 PM [facility]) Smoking 07/07/2018 Never smoked completed Never smoked CLEMENTINE ( [facility] 02:06:47 PM tobacco (finding) tobacco (finding) [facility]) Smoking 03/26/2018 Never smoked completed Never smoked CLEMENTINE ( [facility] 04:40:15 PM tobacco (finding) tobacco (finding) [facility]) Assertion High risk sexual completed High risk sexual GR EENWAY ([facility] behavior behavior Yair (finding) (finding) [facility]) Assertion Intravenous drug completed Intravenous drug GR EENWAY ([facility] user (finding) user (finding) [facility]) Assertion sexual history completed CLEMENTINE ( [facility]) Assertion Physical handicap completed Physical handicap CLEMENTINE ([facility] (finding) (finding) [facility]) Assertion Finding of completed Finding of CLEMENTINE (Moun t functional functional [place] performance and performance and Neig hborhood activity activity [facility]) (finding) (finding) Assertion social history completed CLEMENTINE ( [facility]) Assertion Smoker (finding) completed Smoker (finding) GR EENWAY ([facility]) Assertion Tobacco user completed Tobacco user CLEMENTINE ( [facility] (finding) (finding) [facility]) Assertion Excessive dietary completed Excessive dietary CLEMENTINE ([facility] caloric intake caloric intake [place] (finding) ([facility]) [facility]) Assertion Finding relating completed Finding relating GR EENWAY ([facility] to drug misuse to drug misuse [place] behavior behavior [facility] (finding) (finding) [facility]) Assertion Finding of life completed Finding of life GREE NWAY ([facility] event (finding) event (finding) [facility]) Assertion Caffeine user completed Caffeine user CLEMENTINE ([facility] (finding) (finding) [facility]) Assertion Sexually active completed Sexually active GREE NWAY ([facility] (finding) (finding) [facility]) Assertion Non-smoker completed CLEMENTINE ([facility]) Assertion Alcohol use: 2 completed CLEMENTINE ( [facility] drinks or less [place] per day [facility]) Assertion Current drinker completed Current drinker GREE NWAY ([facility] of alcohol of alcohol Yair (finding) (finding) [facility]) Assertion Finding of completed Finding of CLEMENTINE (Moun t activity of daily activity of daily Yair living (finding) living (finding) [facility]) Assertion Exercise history completed Exercise history GR EENWAY ([facility] finding (finding) finding (finding) [facility]) Smoking Unknown if ever completed Unknown if ever Kiley Caldwell smoked [facility] Assertion Current drinker completed Current drinker GREE NWAY ([facility] of alcohol of alcohol [place] (finding) ([facility]) [facility]) Assertion Finding of completed Finding of CLEMENTINE (Moun t activity of daily activity of daily Yair living (finding) living (finding) [facility]) Assertion Exercise history completed Exercise history GR EENWAY ([facility] finding (finding) finding (finding) [facility]) Assertion Sexually active completed Sexually active GREE NWAY ([facility] (finding) (finding) [facility]) Assertion Alcohol use: 2 completed CLEMENTINE ( [facility] drinks or less Yair per day [facility]) Assertion Non-smoker completed CLEMENTINE ([facility]) Assertion Current drinker completed Current drinker GREE NWAY ([facility] of alcohol of alcohol Yair (finding) (finding) [facility]) Assertion Finding of completed Finding of CLEMENTINE (Moun t activity of daily activity of daily Yair living (finding) living (finding) [facility]) Assertion Exercise history completed Exercise history [place] ([place] (finding) finding (finding) [facility]) Assertion Caffeine user completed Caffeine user CLEMENTINE ([facility] (finding) (finding) [facility]) Assertion Current drinker completed Current drinker GREE NWAY ([facility] of alcohol of alcohol Ayir (finding) ([facility]) [facility]) Assertion Finding of completed Finding of CLEMENTINE (Moun t activity of daily activity of daily Yair living (finding) living (finding) [facility]) Assertion Exercise history completed Exercise history GR EENWAY ([facility] finding (finding) finding (finding) [facility]) Assertion Finding of life completed Finding of life GREE NWAY ([facility] event (finding) event (finding) [facility]) Assertion Finding of completed Finding of CLEMENTINE (Moun t activity of daily activity of daily Yair living (finding) living (finding) [facility]) Assertion Finding relating completed Finding relating GR EENWAY ([facility] to drug misuse to drug misuse [place] behavior behavior [facility] (finding) ([facility]) [facility]) Assertion Current drinker completed Current drinker GREE NWAY ([facility] of alcohol of alcohol [place] (finding) ([facility]) [facility]) Assertion Exercise history completed Exercise history GR EENWAY ([facility] finding (finding) finding (finding) [facility]) Assertion Excessive dietary completed Excessive dietary CLEMENTINE ([facility] caloric intake caloric intake [place] ([facility]) ([facility]) [facility]) Assertion social history completed CLEMENTINE ( [facility] unchanged [facility]) Assertion Finding relating completed Finding relating GR EENWAY ([facility] to drug misuse to drug misuse [place] behavior behavior [facility] (finding) ([facility]) [facility]) Assertion Smoker (finding) completed Smoker (finding) GR EENWAY ([facility]) Assertion Tobacco user completed Tobacco user CLEMENTINE ( [facility] (finding) (finding) [facility]) Assertion Caffeine user completed Caffeine user CLEMENTINE ([facility] (finding) (finding) [facility]) Assertion Exercise history completed Exercise history GR LIAMNJAH ([facility] finding (finding) finding (finding) [facility]) Assertion Current drinker completed Current drinker DANIELLE NWVIKI ([facility] of alcohol of alcohol [place] (finding) ([facility]) [facility]) Assertion Finding of completed Finding of CLEMENTINE (Moun t activity of daily activity of daily [place] living (finding) living (finding) [facility]) Assertion Exercise history completed Exercise history GR BERENICEWAY ([facility] finding (finding) finding (finding) [facility]) Assertion Current drinker completed Current drinker DANIELLE NWVIKI ([facility] of alcohol of alcohol [place] (finding) ([facility]) [facility]) Vital Signs ID Date Data Source UNK Name Value Range Interpretation Code Description Data Source(s) PhenX - pain, 0 0 CLEMENTINE ([facility] abdominal - type [employer] and intensity [place]) protocol Pt refills medication BP and Cholesterol Body surface area Derived from 1.64 m2 1.64 m2 [place] ([facility]) Pt refills medication BP and Cholesterol Body mass index (BMI) 29.8 kg/m2 29.8 kg/m2 [facility] ([place] [Ratio] [facility]) Pt refills medication BP and Cholesterol Body weight 150 [lb_av] 150 [lb_av] [place] ([facility]) Pt refills medication BP and Cholesterol Body height 59.5 [in_us] 59.5 [in_us] [place] ([facility]) Pt refills medication BP and Cholesterol Body temperature 98.3 [degF] 98.3 [degF] [facility] ([facility]) Pt refills medication BP and Cholesterol Heart rate 60 /min 60 /min CLEMENTINE (Moun t [facility]) Pt refills medication BP and Cholesterol Diastolic blood pressure 81 mm[Hg] 81 mm[Hg] CLEMENTINE ([facility]) Pt refills medication BP and Cholesterol Systolic blood pressure 135 mm[Hg] 135 mm[Hg] G REENWAY ([facility]) Pt refills medication BP and Cholesterol PhenX - pain, abdominal - type and 0 0 CLEMENTINE ([facility] intensity protocol [facility] [place]) Pt. presenting for f/u. Body surface area Derived from 1.64 m2 1.64 m2 [place] ([facility]) Pt. presenting for f/u. Body mass index (BMI) 29.8 kg/m2 29.8 kg/m2 [place] ([place] [[facility]] [facility]) Pt. presenting for f/u. Body weight 150 [lb_av] 150 [lb_av] [place] ([facility]) Pt. presenting for f/u. Body height 59.5 [in_us] 59.5 [in_us] [place] ([facility]) Pt. presenting for f/u. Body temperature 97.9 [degF] 97.9 [degF] [facility] ([facility]) Pt. presenting for f/u. Heart rate 67 /min 67 /min [place] ([facility]) Pt. presenting for f/u. Diastolic blood pressure 66 mm[Hg] 66 mm[Hg] [place] ([facility]) Pt. presenting for f/u. Systolic blood pressure 117 mm[Hg] 117 mm[Hg] [facility] ([facility]) Pt. presenting for f/u. PhenX - pain, abdominal - type and 0 0 [place] ([facility]) Patient is here for a Thyroid Sonogram. Body height 59.5 [in_us] 59.5 [in_us] [place] ([facility]) Patient is here for a Thyroid Sonogram. Diastolic blood pressure 81 mm[Hg] 81 mm[Hg] [place] ([facility]) Pt here for Mammogram results Systolic blood pressure 134 mm[Hg] 134 mm[Hg] G [facility] ([facility]) Pt here for Mammogram results Heart rate 71 /min 71 /min [place] ([facility]) Pt here for Mammogram results PhenX - pain, abdominal - type and 0 0 [place] ([facility]) Pt here for Mammogram results Body surface area Derived from 1.63 m2 1.63 m2 [place] ([facility]) Pt here for Mammogram results Body mass index (BMI) 29.5 kg/m2 29.5 kg/m2 [place] ([place] [Ratio] [facility]) Pt here for Mammogram results Body weight 148.5 [lb_av] 148.5 [lb_av] [place]EN[place] Y ([facility]) Pt here for Mammogram results Body height 59.5 [in_us] 59.5 [in_us] CLEMENTINE ([facility]) Pt here for Mammogram results Body temperature 97.3 [degF] 97.3 [degF] GREENW AY ([facility]) Pt here for Mammogram results PhenX - pain, abdominal - type and 0 0 CLEMENTINE ([facility]) Patient is here to see the [employer]. Body height 59.5 [in_us] 59.5 [in_us] CLEMENTINE ([facility]) Patient is here to see the [employer]. PhenX - pain, abdominal - type and 0 0 CLEMENTINE ([facility]) Pt here for breast exam LMP 2010 Body surface area Derived from 1.64 m2 1.64 m2 [place] ([facility]) Pt here for breast exam LMP 2010 Body mass index (BMI) 29.6 kg/m2 29.6 kg/m2 [facility] ([place] [Ratio] [facility]) Pt here for breast exam LMP 2010 Body weight 149 [lb_av] 149 [lb_av] [facility]) Pt here for breast exam LMP 2010 Body height 59.5 [in_us] 59.5 [in_us] CLEMENTINE ([facility]) Pt here for breast exam LMP 2010 Body temperature 97.7 [degF] 97.7 [degF] GREENW AY ([facility]) Pt here for breast exam LMP 2010 Heart rate 73 /min 73 /min CLEMENTINE ([facility]) Pt here for breast exam LMP 2010 Diastolic blood pressure 82 mm[Hg] 82 mm[Hg] CLEMENTINE ([facility]) Pt here for breast exam LMP 2010 Systolic blood pressure 149 mm[Hg] 149 mm[Hg] G REENWAY ([facility]) Pt here for breast exam LMP 2010 PhenX - pain, abdominal - type and 0 0 CLEMENTINE ([facility]) Patient is here to see the [employer]. Body height 59.5 [in_us] 59.5 [in_us] [place] ([facility]) Patient is here to see the [employer]. PhenX - pain, abdominal - type and 5 5 CLEMENTINE ([facility]) Pt. presenting for lab review and podiat ry referral. Body surface area Derived from 1.62 m2 1.62 m2 [place] ([facility]) Pt. presenting for lab review and podiat ry referral. Body mass index (BMI) 29.0 kg/m2 29.0 kg/m2 [facility] ([place] [[facility]] [facility]) Pt. presenting for lab review and podiat ry referral. Body weight 146 [lb_av] 146 [lb_av] [place] ([facility]) Pt. presenting for lab review and podiat ry referral. Body height 59.5 [in_us] 59.5 [in_us] [place] ([facility]) Pt. presenting for lab review and podiat ry referral. Body temperature 97.7 [degF] 97.7 [degF] [facility] ([facility]) Pt. presenting for lab review and podiat ry referral. Heart rate 66 /min 66 /min [place] ([facility]) Pt. presenting for lab review and podiat ry referral. Diastolic blood pressure 76 mm[Hg] 76 mm[Hg] [place] ([facility]) Pt. presenting for lab review and podiat ry referral. Systolic blood pressure 144 mm[Hg] 144 mm[Hg] [facility]) Pt. presenting for lab review and podiat ry referral. PhenX - pain, abdominal - type and 0 0 CLEMENTINE ([facility]) 63 year old f here first time visit. Body surface area Derived from 1.63 m2 1.63 m2 [place] ([facility]) 63 year old f here first time visit. Body mass index (BMI) 29.4 kg/m2 29.4 kg/m2 [facility] ([place] [[facility]] [facility]) 63 year old f here first time visit. Body weight 148 [lb_av] 148 [lb_av] [place] ([facility]) 63 year old f here first time visit. Body height 59.5 [in_us] 59.5 [in_us] [place] ([facility]) 63 year old f here first time visit. Body temperature 97.3 [degF] 97.3 [degF] GREENW AY ([facility]) 63 year old f here first time visit. Heart rate 64 /min 64 /min [place] ([facility]) 63 year old f here first time visit. Diastolic blood pressure 66 mm[Hg] 66 mm[Hg] [place] ([facility]) 63 year old f here first time visit. Systolic blood pressure 123 mm[Hg] 123 mm[Hg] Michelle [facility] ([facility]) 63 year old f here first time visit. PhenX - pain, abdominal - type and 0 0 [place] ([facility]) Pt is here for Complete Physical Exam. Body surface area Derived from 1.64 m2 1.64 m2 [place] ([facility]) Pt is here for Complete Physical Exam. Body mass index (BMI) 29.6 kg/m2 29.6 kg/m2 [facility] ([place] [[facility]] [facility]) Pt is here for Complete Physical Exam. Body weight 149 [lb_av] 149 [lb_av] [place] ([facility]) Pt is here for Complete Physical Exam. Body height 59.5 [in_us] 59.5 [in_us] [place] ([facility]) Pt is here for Complete Physical Exam. Body temperature 97.8 [degF] 97.8 [degF] SANDY LEVELW AY ([facility]) Pt is here for Complete Physical Exam. Heart rate 54 /min 54 /min [place] ([facility]) Pt is here for Complete Physical Exam. Diastolic blood pressure 77 mm[Hg] 77 mm[Hg] [place] ([facility]) Pt is here for Complete Physical Exam. Systolic blood pressure 148 mm[Hg] 148 mm[Hg] Michelle JOHN ([facility]) Pt is here for Complete Physical Exam. PhenX - pain, abdominal - type and 0 0 CLEMENTINE ([facility]) Pt presents today for follow up and medi cation refills Body surface area Derived from 1.64 m2 1.64 m2 [place] ([facility]) Pt presents today for follow up and medi cation refills Body mass index (BMI) 29.6 kg/m2 29.6 kg/m2 [facility] ([place] [[facility]] [facility]) Pt presents today for follow up and medi cation refills Body weight 149 [lb_av] 149 [lb_av] CLEMENTINE ([facility]) Pt presents today for follow up and medi cation refills Body height 59.5 [in_us] 59.5 [in_us] CLEMENTINE ([facility]) Pt presents today for follow up and medi cation refills Body temperature 97.9 [degF] 97.9 [degF] JIHAN VIKI ([facility]) Pt presents today for follow up and medi cation refills Heart rate 59 /min 59 /min CLEMENTINE ([facility]) Pt presents today for follow up and medi cation refills Diastolic blood pressure 79 mm[Hg] 79 mm[Hg] CLEMENTINE ([facility]) Pt presents today for follow up and medi cation refills Systolic blood pressure 127 mm[Hg] 127 mm[Hg] G JOHN ([facility]) Pt presents today for follow up and medi cation refills Body surface area Derived from 1.64 m2 1.64 m2 [place] ([facility]) PATIENT SAYS THAT SHE HAS PAIN IN THE EA R [place] FRONT OF IT ON THE OUTSIDE. Body mass index (BMI) 29.7 kg/m2 29.7 kg/m2 [facility] ([place] [[facility]] [facility]) PATIENT SAYS THAT SHE HAS PAIN IN THE [place] FRONT OF IT ON THE OUTSIDE. Body weight 149.6 [lb_av] 149.6 [lb_av] ANGEL Rodriguez ([facility]) PATIENT SAYS THAT SHE HAS PAIN IN THE EA [place] FRONT OF IT ON THE OUTSIDE. Body height 59.5 [in_us] 59.5 [in_us] [place] ([facility]) PATIENT SAYS THAT SHE HAS PAIN IN THE EA R [place] FRONT OF IT ON THE OUTSIDE. Body temperature 97.6 [degF] 97.6 [degF] CASTRO AY ([facility]) PATIENT SAYS THAT SHE HAS PAIN IN THE EA R [place] FRONT OF IT ON THE OUTSIDE. Heart rate rhythm 1 1 GREEN[place] Y ([facility]) PATIENT SAYS THAT SHE HAS PAIN IN THE EA [place] FRONT OF IT ON THE OUTSIDE. Heart rate 60 /min 60 /min [facility] PATIENT SAYS THAT SHE HAS PAIN IN THE EA R [place] FRONT OF IT ON THE OUTSIDE. Diastolic blood pressure 86 mm[Hg] 86 mm[Hg] [place] ([facility]) PATIENT SAYS THAT SHE HAS PAIN IN THE EA [place] FRONT OF IT ON THE OUTSIDE. Systolic blood pressure 135 mm[Hg] 135 mm[Hg] G REENWAY ([facility]) PATIENT SAYS THAT SHE HAS PAIN IN THE EA [place] FRONT OF IT ON THE OUTSIDE. PhenX - pain, abdominal - type and 8 8 [place] ([facility]) PATIENT SAYS THAT SHE HAS PAIN IN THE EA [place] FRONT OF IT ON THE OUTSIDE. Body surface area Derived from 1.65 m2 1.65 m2 [place] ([facility]) Pt here for a follow up. Body mass index (BMI) 30.0 kg/m2 30.0 kg/m2 [place] ([place] [Ratio] [facility]) Pt here for a follow up. Body weight 151 [lb_av] 151 [lb_av] [place] [facility]) Pt here for a follow up. Body height 59.5 [in_us] 59.5 [in_us] [place] ([facility]) Pt here for a follow up. Body temperature 97.8 [degF] 97.8 [degF] CASTRO DREW ([facility]) Pt here for a follow up. Heart rate 64 /min 64 /min CLEMENTINE ([facility]) Pt here for a follow up. Diastolic blood pressure 74 mm[Hg] 74 mm[Hg] CLEMENTINE ([facility]) Pt here for a follow up. Systolic blood pressure 126 mm[Hg] 126 mm[facility]Hg[facility] Pt here for a follow up. PhenX - pain, abdominal - type and 0 0 CLEMENTINE ([facility]) Pt here for a follow up. Body height 59.5 [in_us] 59.5 [in_us] CLEMENTINE ([facility]) Patient here for Thyroid sonogram Body surface area Derived from 1.66 m2 1.66 m2 [place] ([facility]) Pt presents today for follow up Body mass index (BMI) 30.8 kg/m2 30.8 kg/m2 [place] ([place] [[facility]) Pt presents today for follow up Body weight 155 [lb_av] 155 [lb_av] CLEMENTINE ([facility] Pt presents today for follow up Body height 59.5 [in_us] 59.5 [in_us] CLEMENTINE ([facility]) Pt presents today for follow up Body temperature 97.5 [degF] 97.5 [degF] [facility] ([facility]) Pt presents today for follow up Heart rate 62 /min 62 /min [place] ([facility]) Pt presents today for follow up Diastolic blood pressure 79 mm[Hg] 79 mm[Hg] CLEMENTINE ([facility]) Pt presents today for follow up Systolic blood pressure 144 mm[Hg] 144 mm[Hg] G REENWAY ([facility]) Pt presents today for follow up PhenX - pain, abdominal - type and 0 0 CLEMENTINE ([facility]) Pt presents today for follow up PhenX - pain, abdominal - type and 5 5 CLEMENTINE ([facility]) Patient presents for RX refill and c/o p ain left breast area Body surface area Derived from 1.65 m2 1.65 m2 [place] ([facility]) Patient presents for RX refill and c/o p ain left breast area Body mass index (BMI) 30.2 kg/m2 30.2 kg/m2 [place] ([place] [[facility]) Patient presents for RX refill and c/o p ain left breast area Body weight 152 [lb_av] 152 [lb_av] [place] ([facility]) Patient presents for RX refill and c/o p ain left breast area Body height 59.5 [in_us] 59.5 [in_us] [place] ([facility]) Patient presents for RX refill and c/o p ain left breast area Body temperature 97 [degF] 97 [degF] [place] ([facility]) Patient presents for RX refill and c/o p ain left breast area Heart rate 71 /min 71 /min [place] ([facility]) Patient presents for RX refill and c/o p ain left breast area Diastolic blood pressure 84 mm[Hg] 84 mm[Hg] [place] ([facility]) Patient presents for RX refill and c/o p ain left breast area Systolic blood pressure 128 mm[Hg] 128 mm[Hg] G REENWAY ([facility]) Patient presents for RX refill and c/o p ain left breast area PhenX - pain, abdominal - type and 0 0 [place] ([facility]) Patient is here for ENDO. Body surface area Derived from 1.65 m2 1.65 m2 [place] ([facility]) Patient is here for ENDO. Body mass index (BMI) 30.2 kg/m2 30.2 kg/m2 [facility] ([place] [[facility]] [facility]) Patient is here for ENDO. Body weight 152 [lb_av] 152 [lb_av] [place] ([facility]) Patient is here for ENDO. Body height 59.5 [in_us] 59.5 [in_us] [place] ([facility]) Patient is here for ENDO. Body temperature 97.6 [degF] 97.6 [degF] [facility] ([facility]) Patient is here for ENDO. Heart rate rhythm 1 1 [place] ([facility]) Patient is here for ENDO. Heart rate 60 /min 60 /min [place] ([facility]) Patient is here for ENDO. Diastolic blood pressure 80 mm[Hg] 80 mm[Hg] [place] ([facility]) Patient is here for ENDO. Systolic blood pressure 132 mm[Hg] 132 mm[Hg] [facility] Patient is here for ENDO. PhenX - pain, abdominal - type and 0 0 [place] ([facility]) pt here for results Body surface area Derived from 1.65 m2 1.65 m2 [place] ([facility]) pt here for results Body mass index (BMI) 30.2 kg/m2 30.2 kg/m2 [facility] ([place] [[facility]] [facility]) pt here for results Body weight 152 [lb_av] 152 [lb_av] [place] ([facility]) pt here for results Body height 59.5 [in_us] 59.5 [in_us] [place] ([facility]) pt here for results Body temperature 97.9 [degF] 97.9 [degF] [facility] ([facility]) pt here for results Heart rate 55 /min 55 /min [place] ([facility]) pt here for results Diastolic blood pressure 74 mm[Hg] 74 mm[Hg] [place] ([facility]) pt here for results Systolic blood pressure 134 mm[Hg] 134 mm[Hg] [facility] pt here for results PhenX - pain, abdominal - type and 0 0 [place] ([facility]) pt here for thyroid check. C/O tiredness Body surface area Derived from 1.63 m2 1.63 m2 [place] ([facility]) pt here for thyroid check. C/O tiredness Body mass index (BMI) 29.4 kg/m2 29.4 kg/m2 [place] ([place] [[facility]] [facility]) pt here for thyroid check. C/O tiredness Body weight 148 [lb_av] 148 [lb_av] [place] ([facility]) pt here for thyroid check. C/O tiredness Body height 59.5 [in_us] 59.5 [in_us] [place] ([facility]) pt here for thyroid check. C/O tiredness Body temperature 98 [degF] 98 [degF] [place] ([facility]) pt here for thyroid check. C/O tiredness Heart rate 61 /min 61 /min [place] ([facility]) pt here for thyroid check. C/O tiredness Diastolic blood pressure 75 mm[Hg] 75 mm[Hg] [place] ([facility]) pt here for thyroid check. C/O tiredness Systolic blood pressure 120 mm[Hg] 120 mm[Hg] [facility] ([facility]) pt here for thyroid check. C/O tiredness PhenX - pain, abdominal - type and 0 0 [place] ([facility]) Patient here for endocrine F/U Body surface area Derived from 1.65 m2 1.65 m2 [place] ([facility]) Patient here for endocrine F/U Body mass index (BMI) 30.0 kg/m2 30.0 kg/m2 [place] ([place] [[facility]] [facility]) Patient here for endocrine F/U Body weight 151.0375 [lb_av] 151.0375 [lb_av] [facility] ([facility]) Patient here for endocrine F/U Body height 59.5 [in_us] 59.5 [in_us] [place] ([facility]) Patient here for endocrine F/U Body temperature 97.5 [degF] 97.5 [degF] [facility] ([facility]) Patient here for endocrine F/U Heart rate 67 /min 67 /min [place] ([facility]) Patient here for endocrine F/U Diastolic blood pressure 82 mm[Hg] 82 mm[Hg] [place] ([facility]) Patient here for endocrine F/U Systolic blood pressure 133 mm[Hg] 133 mm[Hg] [facility] ([facility]) Patient here for endocrine F/U PhenX - pain, abdominal - type and 0 0 [place] ([facility]) patient present for breast exam, lmp 9 y rs prior Body surface area Derived from 1.66 m2 1.66 m2 [place] ([facility]) patient present for breast exam, lmp 9 y rs prior Body mass index (BMI) 30.4 kg/m2 30.4 kg/m2 [facility] ([place] [[facility]] [facility]) patient present for breast exam, lmp 9 y rs prior Body weight 153 [lb_av] 153 [lb_av] [place] ([facility]) patient present for breast exam, lmp 9 y rs prior Body height 59.5 [in_us] 59.5 [in_us] [place] ([facility]) patient present for breast exam, lmp 9 y rs prior Body temperature 96.9 [degF] 96.9 [degF] [facility] ([facility]) patient present for breast exam, lmp 9 y rs prior Respiratory rate 18 /min 18 /min [place] ([facility]) patient present for breast exam, lmp 9 y rs prior Heart rate 62 /min 62 /min [place] ([facility]) patient present for breast exam, lmp 9 y rs prior Diastolic blood pressure 80 mm[Hg] 80 mm[Hg] [place] ([facility]) patient present for breast exam, lmp 9 y rs prior Systolic blood pressure 55 mm[Hg] 55 mm[Hg] [facility] ([facility]) patient present for breast exam, lmp 9 y rs prior PhenX - pain, abdominal - type and 8 8 [place] ([facility]) 61yr old female patient arrived today fo r medication refill and follow up. Body surface area Derived from 1.66 m2 1.66 m2 [place] ([facility]) 61yr old female patient arrived today fo r medication refill and follow up. Body mass index (BMI) 30.6 kg/m2 30.6 kg/m2 [facility] ([place] [[facility]] [facility]) 61yr old female patient arrived today fo r medication refill and follow up. Body weight 154 [lb_av] 154 [lb_av] [place] ([facility]) 61yr old female patient arrived today fo r medication refill and follow up. Body height 59.5 [in_us] 59.5 [in_us] [place] ([facility]) 61yr old female patient arrived today fo r medication refill and follow up. Body temperature 97.9 [degF] 97.9 [degF] [place] ([facility]) 61yr old female patient arrived today fo r medication refill and follow up. Heart rate 52 /min 52 /min [place] ([facility]) 61yr old female patient arrived today fo r medication refill and follow up. Diastolic blood pressure 75 mm[Hg] 75 mm[Hg] [place] ([facility]) 61yr old female patient arrived today fo r medication refill and follow up. Systolic blood pressure 157 mm[Hg] 157 mm[Hg] [facility] ([facility]) 61yr old female patient arrived today fo r medication refill and follow up. PhenX - pain, abdominal - type and 0 0 [place] ([facility]) pt here for results Body surface area Derived from 1.67 m2 1.67 m2 [place] ([facility]) pt here for results Body mass index (BMI) 31.2 kg/m2 31.2 kg/m2 [facility] ([place] [Ratio] [facility]) pt here for results Body weight 157 [lb_av] 157 [lb_av] [place] ([facility]) pt here for results Body height 59.5 [in_us] 59.5 [in_us] [place] ([facility]) pt here for results Body temperature 97.8 [degF] 97.8 [degF] [place] ([facility]) pt here for results Heart rate 65 /min 65 /min [place] ([facility]) pt here for results Diastolic blood pressure 76 mm[Hg] 76 mm[Hg] [place] ([facility]) pt here for results Systolic blood pressure 147 mm[Hg] 147 mm[Hg] [facility] ([facility]) pt here for results Body height 59.5 [in_us] 59.5 [in_us] [place] ([facility]) Patient Treatment Plan of Care Planned Activity Planned Date Details Description Data Source (s) Lisinopril 10 MG Oral 10/31/2019 [place] ([place] Tablet 12:00:00 AM [facility]) Simvastatin 10 MG Oral 10/31/[address] ([place] Tablet 12:00:00 AM [facility]) Simvastatin 10 MG Oral 07/11/[address] ([place] Tablet 12:00:00 AM [facility]) Lisinopril 10 MG Oral 07/11/2019 [place] ([place] Tablet 12:00:00 AM [facility]) Hydrocortisone 25 MG/ML 05/14/2019 [place] ([place] Topical Cream 12:00:00 AM [facility]) Mupirocin 0.02 MG/MG 05/14/2019 [place] ([place] Topical Ointment 12:00:00 AM [facility]) Simvastatin 10 MG Oral 04/05/[address] ([place] Tablet 12:00:00 AM [facility]) Clotrimazole 10 MG/ML 04/05/2019 [place] ([place] Topical Cream 12:00:00 AM [facility]) Lac-Hydrin 12% External 04/05/2019 [place] ([place] Cream 12:00:00 AM [facility]) Lisinopril 10 MG Oral 04/05/2019 [place] ([place] Tablet 12:00:00 AM [facility]) Lisinopril 10 MG Oral 11/29/2018 [place] ([place] Tablet 12:00:00 AM [facility]) Simvastatin 10 MG Oral 11/29/[address] ([place] Tablet 12:00:00 AM [facility]) Hydrocortisone 10 MG/ML / 10/12/2018 [place] ([place] Neomycin 3.5 MG/ML / 12:00:00 AM [facility] Polymyxin B 36808 UNT/ML [address]) Otic Solution Lisinopril 10 MG Oral 10/12/2018 [place] ([place] Tablet 12:00:00 AM [facility]) Lisinopril 10 MG Oral 10/12/2018 [place] ([place] Tablet 12:00:00 AM [facility]) Pravastatin Sodium 10 MG 09/26/2018 [place] ([place] Oral Tablet 12:00:00 AM [facility]) Lisinopril 10 MG Oral 09/03/2018 [place] ([place] Tablet 12:00:00 AM [facility]) Norvasc 10MG Oral Tablet 09/03/2018 [place] ([place] 12:00:00 AM [facility]) Lisinopril 10 MG Oral 07/07/2018 [place] ([place] Tablet 12:00:00 AM [facility]) Lisinopril 10 MG Oral 02/12/2018 [place] ([place] Tablet 12:00:00 AM [facility]) Norvasc 10MG Oral Tablet 10/30/2017 [place] ([place] 12:00:00 AM [facility]) Norvasc 10MG Oral Tablet 10/30/2017 [place] ([place] 12:00:00 AM [facility]) Norvasc 5MG Oral Tablet 09/25/2017 [place] ([place] 12:00:00 AM [facility]) Blood Pressure Kit 09/23/2016 [place] ([place] 12:00:00 AM [facility]) Azelastine hydrochloride 09/16/2016 [place] ([place] 0.5 MG/ML Ophthalmic 12:00:00 AM [facility]) Lisinopril 5 MG Oral 09/09/2016 [place] ([place] Tablet 12:00:00 AM [facility]) Blood Pressure Kit Kit 10/14/[address] ([place] 12:00:00 AM [facility]) Lisinopril 5 MG Oral 10/14/2015 [place] ([place] Tablet 12:00:00 AM [facility]) [facility] 06/13/2013 [place] ([facility] Calcium-Vit D 500-200 12:00:00 AM [facility] MG-UNIT TABS Center)
== END 2020-04-02 15:47 | disposition home or self-care (01) ==
LOC: JERFT 14:29
PROC: 3E0234Z Introduction of Serum, Toxoid and Vaccine into Muscle, Percutaneous Approach (ICD-10-PCS; principal; 2020-04-02)
DX: S80.812A Abrasion, left lower leg, initial encounter (principal); S81.811A Laceration without foreign body, right lower leg, initial encounter
CPT/HCPCS: 90715; 99284-25

== ENCOUNTER 2020-04-15 15:25 | Emergency (ER) | payer OTHER ==
[2020-04-15 16:05] VITALS: BP 141/53; PULSE 66; TEMP 98.1; BMI 31.1
--- NOTE | 2020-04-15 16:09 | PDOC ---
History of Present Illness - General Chief Complaint: Suture/Staple Removal (other) Stated Complaint: Suture/Staple Removal (other) Time Seen by Provider: 04/15/20 15:55 - History of Present Illness Initial Comments: 04/15/20 16:07 64-year-old female presents for suture removal. No sequelae since suture placement right lower extremity Past History - Medical History Allergies/Adverse Reactions: Allergies Allergy/AdvReac Type Severity Reaction Status Date / Time No Known Allergies Allergy Verified 04/15/20 16:05 Home Medications: Ambulatory Orders NK [No Known Home Medication] 08/31/15 COPD: No HTN: Yes Hypercholesterolemia: Yes - Surgical History Appendectomy: Yes - Reproductive History Is Patient Now?: No - Immunization History Immunization Up to Date: Yes - Psycho-Social/Smoking History Smoking History: Never smoked Have you smoked in the past 12 months: No Information on smoking cessation initiated: No - Substance Abuse Hx (Audit-C & DAST Scrn) How often the patient has a drink containing alcohol: Never Score: In Men: 4 or > Positive; In Women: 3 or > Positive: 0 Screen Result (Pos requires Nsg. Audit-10AR): Negative In the last yr the pt used illegal drug/Rx for NonMed reason: No Score: Yes response is considered Positive: 0 Screen Result (Positive result requires Nsg. 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 Laceration is healing well normal surrounding skin color and temperature Medical Decision Making - Medical Decision Making 04/15/20 16:07 Instructions given follow-up with primary care physician in 24 to 48 hours for wound check I have reviewed the pathophysiology with the patient. They are in agreement with the treatment plan all questions were answered to their satisfaction. Understanding for follow-up without fail was also conveyed to the patient. Again they are in agreement. Discharge - Discharge Information Problems reviewed: Yes Clinical Impression/Diagnosis: Visit for suture removal Condition: Stable Disposition: HOME - Admission No - Follow up/Referral Referrals: Aylin Gumzan MD [Staff Physician] - - Patient Discharge Instructions Additional Instructions: Please leave the area clean and dry for the next 48 hours. After 48 hours you may gently wash the area with soap and water and pat it dry and leave it open to air. Do not apply any ointment such as bacitracin or Neosporin. Without fail please follow-up with your primary care physician in 2 to 3 days for a wound check. Return to the emergency room for further issues. The Steri-Strips will fall off on their own. Do not peel them off. - Post Discharge Activity
--- OUTSIDE RECORDS SUMMARY | 2020-04-15 16:22 | XMS ---
:1955 [facility] Care Team Providers Name Role Phone IGOR CARROLL Unavailable Unavailable Kristyn Scruggs Unavailable MAYANK SAHU, CORY Unavailable MAYANK SAHU, CORY Unavailable BRET SAHU, EUGENE Unavailable BRET SAHU, EUGENE Unavailable BRET SAHU, EUGENE Unavailable BRET SAHU, EUGENE Unavailable LONG CNM, ISAC Unavailable LONG CNM, ISAC Unavailable LONG CNM, ISAC Unavailable LONG CNM, ISAC Unavailable + LONG ISAC M, ISAC Unavailable Unavailable OYEKOLA OPERATOR SPECIALIST COMMUNICATIONS, MOBOLAJI Unavailable + OYEKOLA OPERATOR SPECIALIST COMMUNICATIONS, MOBOLAJI Unavailable + OYEKOLA OPERATOR SPECIALIST COMMUNICATIONS, MOBOLAJI Unavailable + OYEKOLA OPERATOR SPECIALIST COMMUNICATIONS, MOBOLAJI Unavailable + [place]ard DPM, Elissa Unavailable + [place] DPM, Elissa Unavailable AGYEPONG OPERATOR SPECIALIST COMMUNICATIONS, MARY Unavailable + AGYEPONG OPERATOR SPECIALIST COMMUNICATIONS, MARY Unavailable DELIA SAHU, EVERARDO Unavailable LADY GI Unavailable Chris Stanley Unavailable Unavailable Taher, D Unavailable Unavailable Taher, D Unavailable Unavailable Taher, D Unavailable Unavailable Taher, D Unavailable Unavailable Re-disclosure Warning The records that you [...] is protected by Article 27-F of the [facility] Public Health law. If you continue you may haveaccess to information: Regarding HIV / AIDS; Provided by facilities licensed or operated by the [facility] Office of Mental Health; or Provided by the [facility] Office for People With Developmental Disabilities. If such information is present, then the following [facility] mandated warning applies: This information has been [...] law may result in a fine or penitentiary sentence or both. A general authorization for the release of medical or other information is NOT sufficient authorization for further disclosure. Allergies and Adverse Reactions Type Description Substance Reaction Status Data Source(s ) Allergy to No Known Allergies No known [facility] VIKI ([facility] substance allergies [facility] ) Encounters Encounter Providers Location Date Indications Data Source(s ) Outpatient [address] 10:18:0 0 AM EDT Outpatient [address] 12:00:0 0 AM EDT Outpatient<td Attender: Cate OverweightHypertension CLEMENTINE ID="encounterTy [facility] 020 (systemic)Hyperlipid emia ([facility] pe[facility]ID [facility] 11:30:0 Neighbor henson 0">WALKINS</td> Center 0 AM Health Ce nter) <td>[facility]</td><td>[address] 12:06:4 Health 6 PM Center</td><td> EDT 10/31/2019</td> <td><content ID="encounterDi agnosisID0-0">O verweight</cont ent>, <content ID="encounterDi agnosisID0-1">H ypertension (systemic)</con tent>, <content ID="encounterDi agnosisID0-2">H yperlipidemia</ content></td> Overweight Hypertension (systemic) Hyperlipidemia Outpatient<td Attender: Cate 09/03/2019 CLEMENTINE ID="encounterTypeDescriptionID1">*[facility] 05:30:0 0 PM (Palmer Update*</td><td>[facility] EST Neighborhood MD</td><td>[facility] 09/03/2019 Health Center</td><td>09/03/2019</td><td></td> 11:59:0 0 PM Center) EST Outpatient<td Attender: Cate 08/21/2019 CLEMENTINE ID="encounterTypeDescriptionID2">*[facility] 03:30:0 0 PM (Palmer Update*</td><td>[facility] MD</td><td>[facility] 08/21/2019 Health Center</td><td>08/21/2019</td><td></td> 11:59:0 0 PM Center) EST 08/13/2019 [facility] 02:03:00 PM Medical EST Center Outpatient Attender: 08/13/2019 [facility] 01:27:00 PM [facility] DEEBA TAHERAdmit ter: DCBALJEETNOVANT HEALTH THOMASVILLE MEDICAL CENTEREBAlexandro TAHERRefer rer: [facility] Outpatient<td Attender: [facility] 07/17/2019 CLEMENTINE ID="encounterTypeDescriptionID3">*Syeda Mazariegos 04:33:00 P M (Palmer Show*</td><td>EUGENE QUEEN (CYRUS) BRET SAHU [facility] EST - Neighborhood MD</td><td>[facility] 07/17/2019 [facility] 11:59:00 PM Center) Center</td><td>07/17/2019</td><td></td> EST Outpatient<td Attender: 07/17/2019 CLEMENTINE ID="encounterTypeDescriptionID4">*SYD HERNANDEZ 01:12: 00 PM (Palmer *</td><td>MARY HEIN OPERATOR SPECIALIST COMMUNICATIONS</td><td> AGYEPONG EST - Neighborhood OPERATOR SPECIALIST COMMUNICATIONS 07/17/2019 Health </td><td>07/17/2019</td><td></td> 11:59:00 PM Center) EST Outpatient<td Attender: Cate 07/11/2019 O CLEMENTINE ID="encounterTypeDescriptionID5">OFFICE [facility] 10:00:0 0 AM v (Nimisha Mazariegos VISIT</td><td>[facility] EST - e Neighborhood OPERATOR SPECIALIST COMMUNICATIONS</td><td>[facility] OPERATOR SPECIALIST COMMUNICATIONS Center 07/11/2019 r Health Center</td><td>07/11/2019</td><td><maninder 11:01: 34 AM w Center) [...] Disorders Outpatient<td Attender: Cate 07/02/2019 CLEMENTINE ID="encounterTypeDescriptionID6">[facility] 02:30: 00 PM (Nimisha Mazariegos Sonogram</td><td>EVERARDO LIN MD [facility] EST - Neighborhood </td><td>[facility] 07/02/2019 Health Center</td><td>07/02/2019</td><td></td> 03:34:5 7 PM Center) EST Outpatient<td Attender: Cate 06/28/2019 CLEMENTINE ID="encounterTypeDescriptionID7">[facility] (Nimisha Mazariegos /td><td>CHRIS STANLEY MD</td><td>Valders Lizeth [facility] 06/28/2019 Health Center</td><td>06/28/2019</td><td></td> 10:52:1 2 AM Center) EST Outpatient<td Attender: Cate 06/13/2019 CLEMENTINE ID="encounterTypeDescriptionID8">OFFICE [facility] 10:00:0 0 AM (Palmer VISIT</td><td>[facility] EST - Neighborhood DPM</td><td>[facility] 06/13/2019 Health Center</td><td>06/13/2019</td><td></td> 09:52:0 3 AM Center) EST Outpatient<td Attender: Cate 06/12/2019 CLEMENTINE ID="encounterTypeDescriptionID9">*[facility] 04:34 :00 PM (Palmer H*</td><td>ISAC LONG [facility] EST - Neighborhood CN</td><td>[facility] 06/12/2019 Health Center</td><td>06/12/2019</td><td></td> 11:59:0 0 PM Center) EST Outpatient Attender: 06/07/2019 [facility] 08:53:00 AM [facility] ISAC Pattener: ISAC CHAU MReferrer: ISAC CHAU Outpatient<td Attender: Cate 06/05/2019 A ALGODONES ID="[id number]">OFFICE [facility] 03:30: 00 PM s (Palmer VISIT</td><td>ISAC LONG [facility] EST - s Neighborhood CN</td><td>[facility] 06/05/2019 e Health Center</td><td>06/05/2019</td><td><conten 04:14 :02 PM s Center) t EST s ID="[id number]">Assessment m [use For S.o.a.p. Note Free e [...] S.o.a.p. Note Free T ext] Outpatient<td Attender: Cate 05/16/2019 ALGODONES ID="[id number]">OFFICE [facility] 09:30: 00 AM (Palmer VISIT</td><td>Elissa Jennings [facility]</td><td>[facility] 05/16/2019 Health Center</td><td>05/16/2019</td><td></td> 11:59:0 0 PM Center) EST Outpatient<td Attender: Cate 05/16/2019 CLEMENTINE ID="encounterTypeDescriptionID0">OFFICE [facility] 09:30:0 0 AM (Nimisha Mazariegos VISIT</td><td>ISAC CHAVEZ [facility] EST - Neighborhood CNM</td><td>[facility] 05/16/2019 Health Center</td><td>05/16/2019</td><td></td> 11:59:0 0 PM Center) EST Outpatient<td Attender: Cate 05/16/2019 O CLEMENTINE ID="[id number]">OFFICE [facility] 09:00: 00 AM v (Nimisha Mazariegos VISIT</td><td>[facility] EST - e Neighborhood OPERATOR SPECIALIST COMMUNICATIONS</td><td>[facility] OPERATOR SPECIALIST COMMUNICATIONS Center 05/16/2019 Health Center</td><td>05/16/2019</td><td><conten 09:51 :12 AM w Center) t ID="[id number]">Limb Pain EST e Right Foot</content>, <content i ID="[id number]">Overweight< g /content></td> h t L i m [...] Overweight Limb Pain Right Foot Outpatient<td Attender: Palmer 05/14/2019 CLEMENTINE ID="[id number]">PATIENT [facility] [place] 05: 16:00 PM (Palmer ADVOCACY</td><td>LADY ANGELO</td><td>[facility] 05/14/2019 Health Center</td><td>05/14/2019</td><td></td> 11:59:0 0 PM Center) EST Outpatient<td Attender: Palmer 05/14/2019 D CLEMENTINE ID="[id number]">OFFICE [facility] 02:4 5:00 PM e (Palmer VISIT</td><td>CORY TALLEY MD Health Center EST - r [facility]</td><td>[facility] 05/14/2019 [facility] 02:48:41 PM a Center) Center</td><td>05/14/2019</td><td><content EST t ID="[id number]">Dermatitis</ i content></td> t i s D e [...] Dermatitis Dermatitis Outpatient<td Attender: Cate 05/09/2019 CLEMENTINE ID="[id number]">PATIENT [facility] 12:29 :00 PM (Nimisha Mazariegos ADVOCACY</td><td>[facility] EST - [facility]</td><td>[facility] 2018 Health Center</td><td>05/09/2019</td><td></td> 11:59:0 0 PM Center) EST Outpatient<td Attender: Cate 04/05/2019 O ALGODONES ID="[id number]">COMPLETE [facility] 10:0 0:00 AM v (Nimisha Mazariegos PHYSICAL EXAM</td><td>[facility] EDT - e [facility] OPERATOR SPECIALIST COMMUNICATIONS</td><td>[facility] Center 04/05/2019 Health Center</td><td>04/05/2019</td><td><content 11:1 6:31 AM w Center) ID="[id number]">Dermatitis</ EDT e content>, <content i ID="agdsybfreNtepftcmyDL66-3">Routine g History and Physical Adult (18 - 64 h Yrs)</content>, <content t ID="fryqwgoozKxrjocknlPV85-0">Overweight</ R content></td> o u t i n [...] Physical Adult (18 - 64 Yrs) Dermatitis Medications Medication Brand Start Product Dose Route Administrative Pharmacy [facility] Indications Reaction Description Data Name Date Form Instructions Instructions Source(s) Lisinopril Lisino 10/30/ UNIT 1 active Lisinopr il CLEMENTINE 10 MG Oral pril 2019 ([place] Tablet 10MG 12:00: Yair Lisinopril Oral 00 AM Neighbor ho 10MG Oral Tablet EDT od [facility] Tablet Center) Simvastatin Simvas 10/30/ UNIT 1 active Simvast atin CLEMENTINE 10 MG Oral tatin 2019 ([place] Tablet 10MG 12:00: Yair Simvastatin Oral 00 AM Neighbo rho 10MG Oral Tablet EDT od [facility] Tablet Center) Lisinopril Lisino UNIT 1 suspend Lisinop ril CLEMENTINE 10 MG Oral pril 2020 ed ([place] Tablet 10MG 12:00: Yair Lisinopril Oral 00 AM Neighbor ho 10MG Oral Tablet EST od [facility] Tablet Center) Simvastatin Simvas UNIT 1 suspend Simvas tatin CLEMENTINE 10 MG Oral tatin 2019 ed ([place] Tablet 10MG 12:00: Yair Simvastatin Oral 00 AM Neighbo rho 10MG Oral Tablet EST od Healt h Tablet Center) Mupirocin Mupiro APPLICAT 1 active Mupir ocin CLEMENTINE 0.02 MG/MG rolando 2% 2019 ION UNIT (Mo unt Topical Gluing Machine Feeder 12:00: Yair Ointment al 00 AM Neighborho Mupirocin Ointme EST od Healt h 2% External nt Center) Ointment Hydrocortis Hydroc APPLICAT 1 active Hyd rocortiso CLEMENTINE one 25 ortiso 2018 ION UNIT ne (Mount MG/ML ne 12:00: Yair Topical 2.5% 00 AM Neighborho Cream Gluing Machine Feeder EST od Health Hydrocortis al Center) one 2.5% Cream External Cream Simvastatin Simvas UNIT 1 suspend Simvas tatin CLEMENTINE 10 [...] Tablet EDT od Healt h Tablet Center) Lac-Hydrin Lac-Hy 04/05/ APPLICAT 1 complet Jeovanny i-Hydrola CLEMENTINE 12% drin 2018 ION UNIT ed c ([place] External 12% 12:00: Yair Cream Gluing Machine Feeder 00 AM Neighborho al EDT od Health Cream Center) Clotrimazol Clotri 04/05/ APPLICAT 1 complet Cl otrimazole CLEMENTINE e 10 MG/ML mazole 2018 ION UNIT ed (Mo unt Topical 1% 12:00: Yair Cream Gluing Machine Feeder 00 AM Neighborho Clotrimazol al EDT od Healt h e 1% Cream Center) External Cream Lisinopril Lisino 11/29/ UNIT 1 suspend Lisinop [...] Tablet EDT od Healt h Tablet Center) Insurance Providers Payer name Policy type Policy ID Covered Covered alliance party's Policy P harini / Coverage alliance party ID relationship to [place] Inf ormation type [place] MEDICAID [id number] "" O [id number] [phone] Problems, Conditions, and Diagnoses Code Display Name Description Problem Type Effective Data Sour ce(s) Dates [id number] Disorder of Breast Disorders Problem 06/07/2019 ANGEL ([facility] breast 12:00:00 AM [place] (disorder) [facility]) [id number] Disorder of Breast Disorders Problem 06/07/2019 ANGEL Y ([facility] breast 12:00:00 AM [place] (disorder) [facility]) [id number] Disorder of Breast Disorders Problem 06/07/2019 ANGEL Y ([facility] breast 12:00:00 AM [place] (disorder) [facility]) [id number] Disorder of Breast Disorders Problem 06/07/2019 KETCHUMMARÍA ([facility] breast 12:00:00 AM [place] (disorder) [facility]) Z71.2 Person PERSON Diagnosis 08/13/2019 [facility] consulting for CONSULTING FOR 01:27:00 PM [facility] explanation of EXPLANATION OF EST examination or EXAM OR TEST test findings FINDINGS Z12.31 Encounter for ENCNTR SCREEN Diagnosis 06/07/2019 [facility] screening MAMMOGRAM FOR 08:53:00 AM Medical Ce nter mammogram for MALIGNANT EST malignant NEOPLASM OF neoplasm of BREAST breast Surgeries/Procedures Procedure Description Date Indications Data Source(s) No prior serious No prior serious 10/31/2019 ANGEL Rodriguez ([facility] illness illness 12:00:[address] [facility]) FT-3 FREE FT-3 FREE 07/11/2019 CLEMENTINE ([facility] TRIDOTHYRONIN TRIDOTHYRONIN 12:00:00 AM [facility]) Sign language or oral Translation by Inhouse 07/11/2019 CLEMENTINE ([facility] interpretive Staff 12:00:00 AM [facility] services, per 15 [facility] er) minutes Bmi documented BMI OUTSIDE NORMAL 07/11/2019 ANGEL Rodriguez ([facility] outside normal RANGE - NO F/U PLAN 12:00:00 AM [facility], no [facility] ) follow-up plan documented, no reason given [id number] 07/11/2019 [facility] ([facility] 12:00:00 AM [facility][note 2]) MICROALBUMIN URINE MICROALBUMIN URINE 07/11/2019 GRE ENWAY ([facility] 12:00:00 AM [facility][note 2]) METABOLIC PANEL METABOLIC PANEL 07/11/2019 ALGODONES ([facility] COMPREHE COMPREHE 12:00:00 AM [facility][note 2]) TSH-THYROID TSH-THYROID 07/11/2019 ALGODONES ([facility] STIMULATING STIMULATING 12:00:00 AM [facility][note 2]) THYROXINE FREE (FT4) THYROXINE FREE (FT4) 07/11/2019 ALGODONES ([facility] 12:00:00 AM [facility][note 2]) THYROID B SCAN THYROID B SCAN 07/02/2019 ALGODONES (M ount 12:00:00 AM [facility][note 2]) Result: normal Result: normal 06/28/2019 ALGODONES (M ount 12:00:00 AM [facility][note 2]) Para 2 Para 2 06/28/2019 ALGODONES ([facility] 12:00:00 AM [facility][note 2]) LMP: 2008 LMP: 2009 06/28/2019 ALGODONES ([facility] 12:00:00 AM [facility][note 2]) Last pap smear date Last pap smear date 06/28/2019 Michelle LOPEZ ([facility] 2014 2014 12:00:00 AM [facility] [place][note 2]) History of History of 06/13/2019 ALGODONES ([facility] hypertension hypertension 12:00:00 AM [facility][note 2]) Therapeutic, Therapeutic, 06/13/2019 ALGODONES ([facility] Prophylactic,diagnost Prophylactic,diagnosti 12:00:00 AM [facility] ic Injection c Injection [facility]) Injection, Kenalog 10 mg 06/13/2019 ALGODONES (Moun t triamcinolone 12:00:00 AM [facility] Satellite rhood acetonide, not [facility] ) otherwise specified, 10 mg Result: normal Result: normal 06/05/2019 ALGODONES (M ount BI-RADS 2: benign BI-RADS 2: benign 12:00:00 AM [facility] findings findings [facility]) Last mammogram date: Last mammogram date: 06/05/2019 ALGODONES ([facility] 201610/21/16201610/21/16 12:00:00 AM [facility]) History of menopause History of menopause 06/05/2019 ALGODONES ([place] 2009 2009 12:00:00 AM [facility][note 2]) 3 3 06/05/2019 ALGODONES ([facility] 12:00:00 AM [facility][note 2]) Aborta 1 SAB Aborta 1 SAB 06/05/2019 ALGODONES (Kimberly nt 12:00:00 AM [facility][note 2]) Result: normal NILM, Result: normal NILM, 06/05/2019 ALGODONES ([facility] HPV neg HPV neg 12:00:00 AM [facility][note 2]) Para 2 Para 2 06/05/2019 ALGODONES ([facility] 12:00:00 AM [facility][note 2]) LMP: 2009 LMP: 200906/05/2019 ALGODONES ([facility] 12:00:00 AM [facility][note 2]) Last pap smear date Last pap smear date 06/05/2019 Michelle LOPEZ ([facility] 201511/10/15201511/10/15 12:00:00 AM [facility]) Sign language or oral Translation by Inhouse 05/16/2019 CLEMENTINE ([facility] interpretive Staff 12:00:00 AM [facility] services, per [address] [place] [address] er) minutes Bmi documented BMI OUTSIDE NORMAL 05/16/2019 ANGEL Y ([facility] outside normal RANGE - NO F/U PLAN 12:00:00 AM [facility], [facility] ) follow-up plan documented, no reason given Past medical history Past medical history 04/05/2019 CLEMENTINE ([facility] colonoscopy colonoscopy completion 12:00:00 AM [facility] completion x 1 year x 1 year ago (reports [facility]) ago (reports benign benign results) results) No history of surgery No history of surgery 04/05/2019 CLEMENTINE ([facility] 12:00:[address] [facility]) URINALYSIS URINALYSIS MICROSCOPIC 04/05/2019 [facility] ([facility] MICROSCOPIC 12:00:[address] [facility]) BLOOD OCCULT BY FECAL BLOOD OCCULT BY FECAL 04/05/2019 CLEMENTINE ([facility] HEMOGLOBIN HEMOGLOBIN 12:00:[address] [facility]) [id number] 04/05/2019 [facility] ([facility] 12:00:[address] [facility]) METABOLIC PANEL METABOLIC PANEL 04/05/2019 ALGODONES ([facility] COMPREHE COMPREHE 12:00:[address] [facility]) THYROXINE FREE (FT4) THYROXINE FREE (FT4) 04/05/2019 ALGODONES ([facility] 12:00:[address] [facility]) HEMOGLOBIN A1C HEMOGLOBIN A1C 04/05/2019 ALGODONES ([facility] 12:00:[address] [facility]) TSH-THYROID TSH-THYROID 04/05/2019 ALGODONES ([facility] STIMULATING STIMULATING 12:00:[address] [facility]) Bmi documented BMI OUTSIDE NORMAL 04/05/2019 [facility] Y ([facility] outside normal RANGE - NO F/U PLAN 12:00:00 AM [facility] parameters, no [facility] ) follow-up plan documented, no reason given VISUAL ACUITY SCREEN VISUAL ACUITY SCREEN 04/05/2019 ALGODONES ([facility] 12:00:[address] [facility]) Sign language or oral Sign language or Oral 04/05/2019 ALGODONES ([facility] interpretive Interpretation per 15 12:00:00 AM [facility] services, per 15 Minutes [facility] er) minutes MICROALBUMIN URINE MICROALBUMIN URINE 04/05/2019 [facility] ([facility] 12:00:[address] [facility]) LIPID PANEL LIPID PANEL 04/05/2019 ALGODONES ([facility] 12:00:[address] [facility]) FT-3 FREE FT-3 FREE 04/05/2019 ALGODONES ([facility] TRIDOTHYRONIN TRIDOTHYRONIN 12:00:00 AM [facility]) Results ID Date Data Source [id number] 07/11/2019 11:18:00 AM [facility] ([facility]) Name Value Range Interpretation Description Data Sup porting Code Source(s) Document(s ) Triiodothyronine 3.5 Triiodothyronine [facility] AY (T3) Free pg/mL (T3), Free ([place] [Mass/volume] in [facility] Serum or [facility]) ID Date Data Source [id number] 07/11/2019 11:18:00 AM EST CLEMENTINE ([facility]) Name Value Range Interpretation Description Data Source(s ) Supporting Code Document(s ) Microalbumin 4.0 Albumin, CLEMENTINE [Mass/volume] ug/mL Urine ([place]mer in Urine [facility]) ID Date Data Source [id number] 07/11/2019 11:18:00 AM EST CLEMENTINE ([facility]) Name Value Range Interpretation Description Data Source(s ) Supporting Code Document(s ) Thyrotropin 0.497 TSH CLEMENTINE ([facility] [Units/volume] uIU/mL Yair in Serum or Neighborhood Plasma by [facility]) Detection limit <= 0.05 mIU/L ID Date Data Source [id number] 07/11/2019 11:18:00 AM EST CLEMENTINE ([facility]) Name Value Range Interpretation Description Data Source(s ) Supporting Code Document(s ) Thyroxine 1.26 T4,Free(Direct CLEMENTINE ([place] (T4) free ng/dL ) Yair [Mass/volume Neighborhood ] in [facility]) or Plasma ID Date Data Source [id number] 07/11/2019 11:18:00 AM EST CLEMENTINE ([facility]) Name Value Range Interpretation Description Data Source(s ) Supporting Code Document(s ) Calcium 9.5 Calcium CLEMENTINE ([facility] [Mass/volum mg/dL Yair e] in Serum [facility] or [facility]) Protein 7.4 g/dL Protein, Total CLEMENTINE ([facility] [Mass/volum Yair e] in Serum [facility] or [facility]) Urea 20 mg/dL BUN CLEMENTINE ([facility] nitrogen Yair [Mass/volum Neighborhood e] in Serum [facility]) or Plasma Glucose 88 mg/dL Glucose CLEMENTINE ([facility] [Mass/volum Yair e] in Serum [facility] or [facility]) Albumin 4.5 g/dL Albumin CLEMENTINE ([facility] [Mass/volum Yair e] in Serum [facility] or [facility]) Note: Effective Jul Albumin reference interval will be changing to: [...] CLEMENTINE ([place] [Enzymatic Phosphatase Yair activity/volume] in [facility] or [facility]) Bilirubin.total 0.5 mg/dL Bilirubin, Total GREENWA Y ([place] [Mass/volume] in Serum [place] or [facility]) Sodium [Moles/volume] 139 mmol/L Sodium GREENWA Y ([place] in Serum or Plasma [facility]) Potassium 4.3 mmol/L Potassium CLEMENTINE ([facility] [Moles/volume] in Serum [place] or [facility]) Aspartate 23 IU/L AST (SGOT) CLEMENTINE ([place] aminotransferase Yair [Enzymatic Neighborhood activity/volume] in [address]) Serum or Plasma Alanine 20 IU/L ALT (SGPT) CLEMENTINE ([facility] aminotransferase Yair [Enzymatic Neighborhood activity/volume] in [facility] [address]) Serum or Plasma Creatinine 0.62 mg/dL Creatinine CLEMENTINE ([facility] [Mass/volume] in Serum [place] or [facility]) Chloride [Moles/volume] 99 mmol/L Chloride GREENW AY ([facility] in Serum or Plasma [facility]) Globulin [Mass/volume] 2.9 g/dL Globulin, Total G REENWAY ([place] in Serum by calculation [facility]) Urea 32 Above high BUN/Creatinine CLEMENTINE (Moun t nitrogen/Creatinine normal Ratio Yair [Mass Ratio] in Serum [facility] or [facility]) Carbon dioxide, total 25 mmol/L Carbon Dioxide, GR EENWAY ([place] [Moles/volume] in Serum [facility] or [facility]) eGFR If Africn Am 113 eGFR If Africn Am GREE NWAY ([facility] mL/min/1.73 [facility]) Albumin/Globulin [Mass 1.6 A/G Ratio GREENWA Y ([facility] Ratio] in Serum or [place] Plasma [facility]) eGFR If NonAfricn Am 98 eGFR If NonAfricn G REENWAY ([facility] mL/min/1.73 Am [facility]) ID Date Data Source [id number] 05/09/2019 10:23:00 AM EST CLEMENTINE ([facility]) Name Value Range Interpretation Description Data Sup porting Code Source(s) Document(s ) Triiodothyronine 3.3 Triiodothyronine GREEN AY (T3) Free pg/mL (T3), Free ([place] [Mass/volume] in [facility] Serum or Plasma [facility]) ID Date Data Source [id number] 05/09/2019 10:23:00 AM EST CLEMENTINE ([facility]) Name Value Range Interpretation Description Data Source(s ) Supporting Code Document(s ) Microalbumin 5.9 Albumin, CLEMENTINE [Mass/volume] ug/mL Urine ([place] in Urine [facility]) ID Date Data Source [id number] 05/09/2019 10:23:00 AM EST CLEMENTINE ([facility]) Name Value Range Interpretation Description Data Source(s ) Supporting Code Document(s ) Thyrotropin 0.462 TSH CLEMENTINE ([place] [Units/volume] uIU/mL Yair in Serum or [facility] Plasma [facility]) Detection limit <= 0.05 mIU/L ID Date Data Source [id number] 05/09/2019 10:23:00 AM EST CLEMENTINE ([facility]) Name Value Range Interpretation Description Data Source(s ) Supporting Code Document(s ) Thyroxine 1.24 T4,Free(Direct CLEMENTINE ([facility] (T4) free ng/dL ) Yair [Mass/volume Neighborhood ] in [facility]) or Plasma ID Date Data Source [id number] 05/09/2019 10:23:00 AM EST CLEMENTINE ([facility]) Name Value Range Interpretation Description Data Source(s ) Supporting Code Document(s ) Hemoglobin 5.3 % Hemoglobin A1c CLEMENTINE (Moun t A1c/Hemoglobi Yair n.total in [facility] Blood [facility]) Note: Prediabetes: 5.7 - 6.4 Diabetes: >6.4 Glycemic control for adults with diabetes: <7.0 ID Date Data Source [id number] 05/09/2019 10:23:00 AM EST CLEMENTINE ([facility]) Name Value Range Interpretation Description Data Source(s ) Supporting Code Document(s ) Triglyceride 60 Triglycerides CLEMENTINE [Mass/volume] mg/dL ([place] in Serum or [facility] Plasma [facility]) Cholesterol in 67 HDL Cholesterol CLEMENTINE HDL mg/dL ([place] [Mass/volume] Neighborhood in Serum or [facility]) Plasma Cholesterol 172 Cholesterol, CLEMENTINE [Mass/volume] mg/dL Total ([place] in Serum or [facility] Plasma [facility]) Laboratory N/A Comment: CLEMENTINE comment [Text] ([place] in Report [facility]) Cholesterol in 93 LDL Cholesterol CLEMENTINE LDL mg/dL Calc ([place] [Mass/volume] Neighborhood in Serum or [facility]) Plasma by calculation Cholesterol in 1.4 LDL/HDL Ratio CLEMENTINE LDL/Cholestero ratio ([place] l in HDL [Mass Neighborhood Ratio] in [facility]) Serum or Plasma Note: LDL/HDL Ratio Men Women 1/2 Avg.Risk 1.0 1.5 Avg.Risk 3.6 3.2 2X Avg.Risk 6.2 5.0 3X Avg.Risk 8.0 6.1 Cholesterol in VLDL 12 mg/dL VLDL Cholesterol Elio CLEMENTINE ([place] [Mass/volume] in Serum or [facility] Plasma by calculation Center) ID Date Data Source [id number] 05/09/2019 10:23:00 AM EST CLEMENTINE ([facility]) Name Value Range Interpretation Description Data Sup porting Code Source(s) Document(s ) Glucose 78 Glucose CLEMENTINE [Mass/volume] in mg/dL ([place] Serum or Plasma [facility]) Calcium 9.5 Calcium CLEMENTINE [Mass/volume] in mg/dL ([place] Serum or [facility]) Urea nitrogen 17 BUN CLEMENTINE [Mass/volume] in mg/dL ([place] Serum or Plasma [facility]) Protein 7.6 Protein, CLEMENTINE [Mass/volume] in g/dL Total ([place] Serum or [facility]) Alkaline 95 IU/L Alkaline ALGODONES phosphatase Phosphatase ([place] [Enzymatic [facility] activity/volume] [facility] in Serum or [facility] [place]) Bilirubin.total 0.6 Bilirubin, CLEMENTINE [Mass/volume] in mg/dL Total ([facility] or [facility]) Albumin 4.7 Albumin CLEMENTINE [Mass/volume] in g/dL ([facility]) Aspartate 19 IU/L AST (SGOT) CLEMENTINE aminotransferase ([place] [Enzymatic [facility] activity/volume] [facility] in Serum or [facility] [place]) Sodium 139 Sodium CLEMENTINE [Moles/volume] in mmol/L ([facility] or [facility]) Potassium 4.2 Potassium CLEMENTINE [Moles/volume] in mmol/L ([facility]) Chloride 100 Chloride CLEMENTINE [Moles/volume] in mmol/L ([facility]) Urea 27 BUN/Creatinin CLEMENTINE nitrogen/Creatinin e Ratio ([facility] on e [Mass Ratio] in [facility] Serum [facility]) Alanine 16 IU/L ALT (SGPT) ALGODONES aminotransferase ([place] [Enzymatic [facility] activity/volume] [facility] in Serum or Plasma [place]) Carbon dioxide, 23 Carbon CLEMENTINE total mmol/L Dioxide, ([place] [Moles/volume] in Total [facility]) Creatinine 0.63 Creatinine CLEMENTINE [Mass/volume] in mg/dL ([facility]) Globulin 2.9 Globulin, CLEMENTINE [Mass/volume] in g/dL Total ([facility] by [facility]) Albumin/Globulin 1.6 A/G Ratio CLEMENTINE [Mass Ratio] in ([facility] or [facility]) eGFR If NonAfricn 97 eGFR If CLEMENTINE Am mL/min/ NonAfricn Am ([address]) eGFR If Africn Am 112 eGFR If CLEMENTINE mL/min/ Africn Am ([address]) Procedure Social History Code Duration Value Status Description Data Source(s ) Smoking 10/31/2019 Never smoked completed Never smoked CLEMENTINE ( [facility] 02:07:19 PM EDT tobacco [facility]finding[facility]) Smoking 07/11/2019 smoking status completed CLEMENTINE ( [facility] 02:31:18 PM EST [facility]) Smoking 05/16/2019 smoking status completed CLEMENTINE ( [facility] 09:55:05 AM EST [facility]) Smoking 04/05/2019 smoking status completed CLEMENTINE ( [facility] 02:41:14 PM EDT [facility]) Vital Signs ID Date Data Source UNK Name Value Range Interpretation Code Description Data Source(s) PhenX - pain, 0 0 CLEMENTINE ([facility] abdominal - type [facility] and [facility]) protocol Pt refills medication BP and Cholesterol Body surface area Derived from 1.64 m2 1.64 m2 ALGODONES ([facility]) Pt refills medication BP and Cholesterol Body mass index (BMI) 29.8 kg/m2 29.8 kg/m2 [facility] ([place] [[facility]] [facility]) Pt refills medication BP and Cholesterol Body weight 150 [lb_av] 150 [lb_av] ALGODONES ([facility]) Pt refills medication BP and Cholesterol Body height 59.5 [in_us] 59.5 [in_us] CLEMENTINE ([facility]) Pt refills medication BP and Cholesterol Body temperature 98.3 [degF] 98.3 [degF] [facility] ([facility]) Pt refills medication BP and Cholesterol Heart rate 60 /min 60 /min CLEMENTINE ([facility]) Pt refills medication BP and Cholesterol Diastolic blood pressure 81 mm[Hg] 81 mm[Hg] CLEMENTINE ([facility]) Pt refills medication BP and Cholesterol Systolic blood pressure 135 mm[Hg] 135 mm[Hg] G REENWAY ([facility]) Pt refills medication BP and Cholesterol PhenX - pain, abdominal - type and 0 0 CLEMENTINE ([facility]) Pt. presenting for f/u. Body surface area Derived from 1.64 m2 1.64 m2 ALGODONES ([facility]) Pt. presenting for f/u. Body mass index (BMI) 29.8 kg/m2 29.8 kg/m2 GRE ENWAY ([place] [[facility]] [facility]) Pt. presenting for f/u. Body weight 150 [lb_av] 150 [lb_av] ALGODONES ([facility]) Pt. presenting for f/u. Body height 59.5 [in_us] 59.5 [in_us] [place]ON[place] ([facility]) Pt. presenting for f/u. Body temperature 97.9 [degF] 97.9 [degF] [facility] ([facility]) Pt. presenting for f/u. Heart rate 67 /min 67 /min ALGODONES ([facility]) Pt. presenting for f/u. Diastolic blood pressure 66 mm[Hg] 66 mm[Hg] [place] ([facility]) Pt. presenting for f/u. Systolic blood pressure 117 mm[Hg] 117 mm[Hg] [facility] ([facility]) Pt. presenting for f/u. PhenX - pain, abdominal - type and 0 0 ALGODONES ([facility]) Patient is here for a Thyroid Sonogram. Body height 59.5 [in_us] 59.5 [in_us] AL[place]ODONES ([facility]) Patient is here for a Thyroid Sonogram. Diastolic blood pressure 81 mm[Hg] 81 mm[Hg] [place]ES ([facility]) Pt here for Mammogram results Systolic blood pressure 134 mm[Hg] 134 mm[Hg] G [facility] ([facility]) Pt here for Mammogram results Heart rate 71 /min 71 /min ALGODONES ([facility]) Pt here for Mammogram results PhenX - pain, abdominal - type and 0 0 ALGODONES ([facility]) Pt here for Mammogram results Body surface area Derived from 1.63 m2 1.63 m2 AL[place]ODONES ([facility]) Pt here for Mammogram results Body mass index (BMI) 29.5 kg/m2 29.5 kg/m2 GRE MALACHIWAY ([place] [[facility]] [facility]) Pt here for Mammogram results Body weight 148.5 [lb_av] 148.5 [lb_av] [facility] ([facility]) Pt here for Mammogram results Body height 59.5 [in_us] 59.5 [in_us] CLEMENTINE ([facility]) Pt here for Mammogram results Body temperature 97.3 [degF] 97.3 [degF] GREENW AY ([facility]) Pt here for Mammogram results PhenX - pain, abdominal - type and 0 0 CLEMENTINE ([facility]) Patient is here to see the User Experience Developer. Body height 59.5 [in_us] 59.5 [in_us] CLEMENTINE ([facility]) Patient is here to see the User Experience Developer. PhenX - pain, abdominal - type and 0 0 CLEMENTINE ([facility]) Pt here for breast exam LMP 2010 Body surface area Derived from 1.64 m2 1.64 m2 CLEMENTINE ([facility]) Pt here for breast exam LMP 2010 Body mass index (BMI) 29.6 kg/m2 29.6 kg/m2 GRE ENWAY ([place] [[facility]] [facility]) Pt here for breast exam LMP 2010 Body weight 149 [lb_av] 149 [lb_av] [facility]MENTINE [facility] Pt here for breast exam LMP 2010 Body height 59.5 [in_us] 59.5 [in_us] CLEMENTINE ([facility]) Pt here for breast exam LMP 2010 Body temperature 97.7 [degF] 97.7 [degF] GREENW AY ([facility]) Pt here for breast exam LMP 2010 Heart rate 73 /min 73 /min CLEMENTINE ([facility]) Pt here for breast exam LMP 2010 Diastolic blood pressure 82 mm[Hg] 82 mm[Hg] CLEMENTINE ([facility]) Pt here for breast exam LMP 2010 Systolic blood pressure 149 mm[Hg] 149 mm[Hg] G REENWAY ([facility]) Pt here for breast exam LMP 2010 PhenX - pain, abdominal - type and 0 0 CLEMENTINE ([facility]) Patient is here to see the User Experience Developer. Body height 59.5 [in_us] 59.5 [in_us] CLEMENTINE ([facility]) Patient is here to see the User Experience Developer. PhenX - pain, abdominal - type and 5 5 CLEMENTINE ([facility]) Pt. presenting for lab review and podiat ry referral. Body surface area Derived from 1.62 m2 1.62 m2 ALGODONES ([facility]) Pt. presenting for lab review and podiat ry referral. Body mass index (BMI) 29.0 kg/m2 29.0 kg/m2 [facility] ([place] [[facility]] [facility]) Pt. presenting for lab review and podiat ry referral. Body weight 146 [lb_av] 146 [lb_av] ALGODONES ([facility]) Pt. presenting for lab review and podiat ry referral. Body height 59.5 [in_us] 59.5 [in_us] ALGODONES ([facility]) Pt. presenting for lab review and podiat ry referral. Body temperature 97.7 [degF] 97.7 [degF] [facility] ([facility]) Pt. presenting for lab review and podiat ry referral. Heart rate 66 /min 66 /min ALGODONES ([facility]) Pt. presenting for lab review and podiat ry referral. Diastolic blood pressure 76 mm[Hg] 76 mm[Hg] ALGODONES ([facility]) Pt. presenting for lab review and podiat ry referral. Systolic blood pressure 144 mm[Hg] 144 mm[Hg] [facility] Pt. presenting for lab review and podiat ry referral. PhenX - pain, abdominal - type and 0 0 ALGODONES ([facility]) 63 year old f here first time visit. Body surface area Derived from 1.63 m2 1.63 m2 ALGODONES ([facility]) 63 year old f here first time visit. Body mass index (BMI) 29.4 kg/m2 29.4 kg/m2 [facility] ([place] [[facility]] [facility]) 63 year old f here first time visit. Body weight 148 [lb_av] 148 [lb_av] ALGODONES ([facility]) 63 year old f here first time visit. Body height 59.5 [in_us] 59.5 [in_us] ALGODONES ([facility]) 63 year old f here first time visit. Body temperature 97.3 [degF] 97.3 [degF] CASTRO DREW ([facility]) 63 year old f here first time visit. Heart rate 64 /min 64 /min ALGODONES ([facility]) 63 year old f here first time visit. Diastolic blood pressure 66 mm[Hg] 66 mm[Hg] CLEMENTINE ([facility]) 63 year old f here first time visit. Systolic blood pressure 123 mm[Hg] 123 mm[Hg] Michelle LOPEZ ([facility]) 63 year old f here first time visit. PhenX - pain, abdominal - type and 0 0 CLEMENTINE ([facility]) Pt is here for Complete Physical Exam. Body surface area Derived from 1.64 m2 1.64 m2 ALGODONES ([facility]) Pt is here for Complete Physical Exam. Body mass index (BMI) 29.6 kg/m2 29.6 kg/m2 GRE ENJAH ([place] [Ratio] [facility]) Pt is here for Complete Physical Exam. Body weight 149 [lb_av] 149 [lb_av] ALGODONES ([facility]) Pt is here for Complete Physical Exam. Body height 59.5 [in_us] 59.5 [in_us] ALGODONES ([facility]) Pt is here for Complete Physical Exam. Body temperature 97.8 [degF] 97.8 [degF] CASTRO DREW ([facility]) Pt is here for Complete Physical Exam. Heart rate 54 /min 54 /min ALGODONES ([facility]) Pt is here for Complete Physical Exam. Diastolic blood pressure 77 mm[Hg] 77 mm[Hg] ALGODONES ([facility]) Pt is here for Complete Physical Exam. Systolic blood pressure 148 mm[Hg] 148 mm[Hg] [facility] Pt is here for Complete Physical Exam. Patient Treatment Plan of Care Planned Activity Planned Date Details Description Data Source (s) Lisinopril 10 MG Oral 10/31/2019 CASTRO DREW ([place] Tablet 12:00:[address] [facility]) Simvastatin 10 MG Oral 10/31/[address] ([place] Tablet 12:00:[address] [facility]) Simvastatin 10 MG Oral 07/11/[address] ([place] Tablet 12:00:[address] [facility]) Lisinopril 10 MG Oral 07/11/2019 GREENW AY ([place] Tablet 12:00:[address] [facility]) Hydrocortisone 25 MG/ML 05/14/2019 GREE NWAY ([place] Topical Cream 12:00:00 AM [facility]) Mupirocin 0.02 MG/MG 05/14/2019 GREENWA Y ([place] Topical Ointment 12:00:00 AM [facility]) Simvastatin 10 MG Oral 04/05/[address] ([place] Tablet 12:00:[address] [facility]) Clotrimazole 10 MG/ML 04/05/2019 GREENW AY ([place] Topical Cream 12:00:00 AM [facility]) Lac-Hydrin 12% External 04/05/2019 GREE NWAY ([place] Cream 12:00:[address] [facility]) Lisinopril 10 MG Oral 04/05/2019 GREENW AY ([place] Tablet 12:00:[address] [facility]) Lisinopril 10 MG Oral 11/29/2018 GREENW AY ([place] Tablet 12:00:[address] [facility]) Simvastatin 10 MG Oral 11/29/[address] ([place] Tablet 12:00:[address] [facility])
== END 2020-04-15 17:06 | disposition home or self-care (01) ==
LOC: JERFT 15:25
DX: Z48.02 Encounter for removal of sutures (principal)
CPT/HCPCS: 99281-25